=== PATIENT | female | born 1950 | race Hispanic/Latino ===

== ENCOUNTER 2016-07-22 11:09 | Inpatient (IN) | payer MEDICARE, OTHER ==
[2016-07-22 11:15] VITALS: BMI 23.6
[2016-07-22] MEDS ORDERED: Morphine 2 mg/ml ISec IVP STA (11:40)
[2016-07-22] MEDS ORDERED: Sodium Chloride 0.9% 500 ML IV STA (11:40)
--- NOTE | 2016-07-22 11:52 | ED PDOC ---
Arrival/HPI - General Chief Complaint: Dizziness/Lightheaded Time Seen by Provider: 07/22/16 11:10 Historian: Patient - History of Present Illness Narrative History of Present Illness (Text): 07/22/16 11:25 Joseline Kramer is a 66 year old female, whose past medical history includes COPD , CAD, and cardiac stents, who presents to the emergency department complaining of "feeling shakey," associated with "neck discomfort" and shortness of breath that has been present for past two weeks. Patient notes that her symptoms began when she had a cold with associated coughs, rhinorrhea, congestion, and mild fever 2 weeks ago. Patient states her PMD placed her on antibiotics, Levaquin for cough with no improvement. Subsequently was prescribed a cough medication which she feels "made my blood sugar really high". Patient states she has severe constant pain to left ankle/foot that has worsened over the past several days. Denies trauma. Denies redness or swelling or open lesions. She reports that her "left foot drags" "since I was in the hospital last". She also states "I drop things with my hands once in a while". PMD: Dr. Perfecto Arenas Time/Duration: < month (2 weeks) Symptom Onset: Gradual Symptom Course: Worsening Severity Level: Mild Activities at Onset: Rest Context: Home Past Medical History - Provider Review Nursing Documentation Reviewed: Yes - Infectious Disease Hx of Infectious Diseases: None - Tetanus Immunization Tetanus Immunization: Unknown - Cardiac Hx Cardiac Disorders: Yes (CAD,PAD, r coronary artery,ANGIOPLASTY) Hx Hypertension: Yes - Pulmonary Hx Respiratory Disorders: Yes Hx Chronic Obstructive Pulmonary Disease (COPD): Yes - Neurological Hx Neurological Disorder: Yes Hx Dizziness: Yes - HEENT Hx HEENT Disorder: No - Renal Hx Renal Disorder: No - Endocrine/Metabolic Hx Endocrine Disorders: Yes Hx Diabetes Mellitus Type 2: Yes - Hematological/Oncological Hx Blood Disorders: No - Integumentary Hx Dermatological Disorder: Yes Hx Psoriasis: Yes - Musculoskeletal/Rheumatological Hx Musculoskeletal Disorders: Yes (LUMBAR RADICULOPATHY,L ULNAR NERVE ENTRAPMENT ,DECOMPRESSION) Hx Back Pain: Yes - Gastrointestinal Hx Gastrointestinal Disorders: Yes Hx Gastroesophageal Reflux: Yes - Genitourinary/Gynecological Hx Genitourinary Disorders: Yes (1 1 MISCARRIAGE) Other/Comment: OOPHORECTOMY - Psychiatric Hx Psychophysiologic Disorder: Yes Hx Anxiety: Yes Hx Depression: Yes Hx Emotional Abuse: No Hx Physical Abuse: No Hx Substance Use: No - Surgical History Hx Cardiac Catheterization: Yes (2008) Hx Coronary Stent: Yes (X2) Other/Comment: trigger finger and ulna sx - Anesthesia Hx Anesthesia: Yes Hx Anesthesia Reactions: No Hx Malignant Hyperthermia: No - Suicidal Assessment Feels Threatened In Home Enviroment: No Family/Social History - Physician Review Nursing Documentation Reviewed: Yes Family/Social History: No Known Family HX Smoking Status: Current Some Days Smoker Hx Alcohol Use: No Hx Substance Use: No Hx Substance Use Treatment: No Allergies/Home Meds Allergies/Adverse Reactions: Allergies bacitracin Allergy (Verified 01/15/16 22:21) SWELLING latex Allergy (Verified 07/22/16 11:24) RASH Penicillins Allergy (Verified 07/22/16 11:24) ANAPHYLAXIS Home Medications: Home Meds Medication Instructions Recorded Confirmed Atorvastatin Calcium [Lipitor] 20 mg PO DAILY 04/18/12 07/22/16 QUEtiapine [Seroquel] 100 mg PO DAILY 10/31/13 07/22/16 Alprazolam [Xanax] 1 mg PO QID 10/24/14 07/22/16 Aspirin [Ecotrin] 325 mg PO DAILY 12/26/14 07/22/16 Esomeprazole Magnesium [Nexium] 40 mg PO DAILY 09/19/15 07/22/16 Metoprolol Succinate [Toprol XL] 200 mg PO DAILY 01/06/16 07/22/16 Tiotropium [Spiriva] 18 mcg IH DAILY 01/06/16 07/22/16 Albuterol Sulfate [Proair Hfa] 1 inh INH PRN PRN 07/22/16 07/22/16 Fluticasone/Salmeterol 250/50 1 inh INH BID 07/22/16 07/22/16 [Advair Diskus 250/50] Insulin Lispro [humALOG] 0 units XX PRN PRN 07/22/16 07/22/16 Methylprednisolone 0 mg PO . PRESCRIBED 07/22/16 07/22/16 [Methylprednisolone] Mometasone 0.1% [Elocon Cream] 1 appful TOP PRN PRN 07/22/16 07/22/16 Valsartan [Diovan] 25 mg PO DAILY 07/22/16 07/22/16 Varenicline Tartrate [Chantix] 0 mg PO BID 07/22/16 07/22/16 Review of Systems - Review of Systems Constitutional: Fatigue. absent: Fevers, Night Sweats Eyes: absent: Vision Changes, Eye Pain ENT: Rhinorrhea, Sinus Congestion. absent: Hearing Changes Respiratory: SOB, Cough Cardiovascular: Chest Pain, [place]. absent: Edema Gastrointestinal: Abdominal Pain (cramping) Genitourinary Female: absent: Urine Output Changes Musculoskeletal: absent: Back Pain, Neck Pain Skin: absent: Rash, Pruritis Neurological: absent: Headache, Dizziness Endocrine: absent: Diaphoresis Hemo/Lymphatic: absent: Easy Bleeding Psychiatric: Anxiety. absent: Depression Physical Exam - Physical Exam Narrative Physical Exam (Text): Head: Atraumatic. Normocephalic. Eyes: PERRL. EOMI. Conjunctivae are not pale. ENT: Mucous membranes are moist and intact. Oropharynx is clear and symmetric. No facial edema or erythema. Neck: Supple. Full ROM. No JVD. No lymphadenopathy. Cardiovascular: Tachycardia. No murmurs, rubs, or gallops. Pulmonary/Chest: Tachypneic. No evidence of respiratory distress. Clear to auscultation bilaterally. No wheezing, rales or rhonchi. Abdominal: Soft and non-distended. There is no tenderness. No rebound, guarding, or rigidity. No organomegaly. Good bowel sounds. No pulsatile masses. Back: No CVA tenderness. Extremities: Strong palpated DP pulse in Lower Left Extremity. No edema. No cyanosis. No clubbing. Full range of motion in all extremities. No calf tenderness. No knee pain. Tender to palpation dorsum of left foot and left heel/ achilles. No ulcers or erythema noted. Strong femoral pulses. Skin: Skin is warm and dry. No petechiae. No purpura. No cyanosis noted to feet. Neurological: Alert, awake, and oriented to person, place, time, and situation. Mild foot drop noted to left lower extremity, has weak dorsiflexion at ankle. No weakness noted at knee or hip or upper extremities. Psychiatric: Good eye contact. Normal interaction, affect, and behavior. 07/22/16 20:42 Vital Signs Reviewed: Yes Vital Signs Temp Pulse Resp BP Pulse Ox 07/22/16 16:30 82 16 142/81 98 07/22/16 13:13 89 16 143/71 100 07/22/16 11:16 98.2 F 108 H 20 155/74 H 100 Temperature: Afebrile Blood Pressure: Hypertensive Pulse: Tachycardic Respiratory Rate: Normal Appearance: Positive for: Uncomfortable, Other (Anxious) Pain Distress: Moderate Mental Status: Positive for: Alert and Oriented X 3 Medical Decision Making ED Course and Treatment: 07/22/16 11:25 Impression: 66 year old female complaining of "feeling shakey," shortness of breath, and cramps today and left foot pain for four days. Differential Diagnosis included but are not limited to: DVT vs. Peripheral Vascular Disease vs. Anxiety vs. COPD vs. Pneumonia Plan: -- EKG -- Chest X-ray -- Bilateral Lower Extremity US -- Carotid and Vertebral US -- VBG, Blood Culture -- Urine Culture -- Labs -- K-Dur, Morphine, and Xanax -- Reassess and disposition Prior Visits: Notes and results from previous visits were reviewed. Patient last seen in the ED on 05/12/16 for intermittent chest pressure and shortness of breath for one week. Progress Notes: 07/22/16 20:45 Patient is a 66 yo female who has prior cardiac history, recent stents, CONTINUE TO SMOKE, risks of this discussed. She has had persistent cough, sob. On exam, no respiratory distress noted although leukocytosis and elevated lactate noted. On re-exam, not tachycardic or tachypneic, with no clear source of infection. Not hypotensive. Exam not consistent with sepsis. IV fluids given and repeat lactate ordered. She has significant pain to left foot with no known trauma. THERE IS A STRONG AND PALPABLE PULSE in the left lower extremity, this exam is thus NOT consistent with a severe acute arterial occlusion. Cannot exclude a component of neuropathy or PVD, although ultrasound is NEGATIVE FOR DVT as per water pollution control technician. Patient is noted to have some improvement, but persistent pain after iv morphine. Cannot exclude medication effect or tendinitis as source of pain as well. Neck discomfort she reports is "like when I had my heart attack", although current EKG is unchanged from previous and initial troponin unremarkable. She denies chest discomfort currently. Case discussed with PMD, requests admission to hospitalist, case d/w Dr. Kim. Foot drop by history appears to have been present for several weeks. On exam, there is no midline back pain or other neuro deficits noted. Deficits appears isolated to left foot/ankle. CT head unremarkable. Will continue serial neurologic exams. - Lab Interpretations Lab Results: 07/22/16 12:10 07/22/16 12:10 Lab Results 07/22/16 12:10: WBC 17.0 H D, RBC 4.35, Hgb 13.4, Hct 37.5, MCV 86.2, MCH 30.8, MCHC 35.7, RDW 13.9, Plt Count 460 H, MPV 9.4, Gran % 64.1, Lymph % (Auto) 23.8 , [place] % (Auto) 10.7 H, Eos % (Auto) 1.2 L, Baso % (Auto) 0.2, Gran # 10.91 H, Lymph # 4.1 H, [place] # 1.8 H, Eos # 0.2, Baso # 0.03, PT 10.4, INR 0.96, APTT 23.4 L, pO2 28 L, VBG pH 7.45 H, VBG pCO2 37.0 L, VBG HCO3 25.7, VBG Total CO2 26.8, VBG O2 Sat (Calc) 61.2, VBG Base Excess 1.8, VBG Potassium 3.9, Glucose 152 H, Lactate 3.7 H, FiO2 21.0, Sodium 131.0 L, Potassium 3.2 L, Chloride 96.0 L, Carbon Dioxide 26, Anion Gap 12, BUN 17, Creatinine 0.6, Est GFR ( Amer) > 60, Est GFR (Non-Af Amer) > 60, Random Glucose 142 H, Calcium 9.2, Total Bilirubin 0.8, AST 30, ALT 28, Alkaline Phosphatase 114, Lactate Dehydrogenase 503, Total Creatine Kinase 50, Troponin I < 0.01 D, Total Protein 6.5, Albumin 3.5, Globulin 3.0, Albumin/Globulin Ratio 1.2, Venous Blood Potassium 3.9, Urine Color Yellow, Urine Appearance Clear, Urine pH 7.5, Ur Specific [place] 1.010, Urine Protein Negative, Urine Glucose (UA) Negative, Urine Ketones Negative, Urine Blood Negative, Urine Nitrate Negative, Urine Bilirubin Negative, Urine Urobilinogen 0.2, Ur Leukocyte Esterase Negative - RAD Interpretation Radiology Orders: 07/22/16 11:39 CHEST ONE VIEW [RAD] Stat DUPLEX LOWER EXTRM VEIN BILAT [US] Stat 07/22/16 13:32 HEAD W/O CONTRAST [CT] Stat Evaluation Engineer: ED Physician - EKG Interpretation EKG Interpretation (Text): EKG 13:06 normal sinus rhythm rate of 86 with left bundle branch block Interpreted by ED Physician: Yes Type: 12 lead EKG Comparison: Com.w/previous EKG - Medication Orders Current Medication Orders: Albuterol Sulfate (Albuterol 0.5% Inhal [place] (2.5 Mg/0.5 Ml) Ud) 2.5 mg IH [id number] PRN PRN Reason: Shortness of Breath Last Admin: 07/22/16 19:53 Dose: 2.5 MG Alprazolam (Xanax) 1 mg PO QID [facility] PRN Reason: Protocol Stop: 07/29/16 18:01 Last Admin: 07/22/16 18:22 Dose: 1 MG Behavioural Document 07/22/16 18:22 MANIL (Rec: 07/22/16 18:22 MANIL [id number]) Maintenance Maintenance Dose Yes Nonmedicinal Nonmedicinal Interventions Redirect Behavior Behavior for Medication: Anxiety Re-Assess: Reassess Psych Meds Document 07/22/16 19:22 RR (Rec: 07/22/16 20:07 RR [id number]) Reassess Psych Med Effective Arformoterol Tartrate (Brovana) 15 mcg IH [id number] [facility] Last Admin: 07/22/16 19:53 Dose: 15 MCG Aspirin (Ecotrin) 325 mg PO DAILY [facility] Atorvastatin Calcium (Lipitor) 20 mg PO DAILY [facility] Budesonide (Pulmicort Respules) 0.5 mg IH [id number] [facility] Last Admin: 07/22/16 19:58 Dose: 0.5 MG Clopidogrel Bisulfate (Plavix) 75 mg PO DAILY [facility] Enoxaparin Sodium (Lovenox) 40 mg SC DAILY [facility] PRN Reason: Protocol Guaifenesin (Robitussin) 100 mg PO Q4H PRN PRN Reason: Cough Insulin Detemir (Levemir) 20 unit SC HS [facility] Insulin Human Regular (Humulin R Med) 0 units SC ACHS [facility] PRN Reason: Protocol Losartan Potassium (Cozaar) 25 mg PO DAILY [facility] Nicotine (Nicoderm Cq) 1 patch TD DAILY [facility] Last Admin: 07/22/16 18:22 Dose: 1 PATCH MAR Patch Placement/Removal Document 07/22/16 18:22 MANIL (Rec: 07/22/16 18:22 MANIL [id number]) Patch Removal Removal of previous patch done No Patch Placement Left, Right or Bilateral Right Upper or Lower Lower Pain Location Body Site Arm Pantoprazole Sodium (Protonix Inj) 40 mg IVP DAILY [facility] Quetiapine Fumarate (Seroquel) 100 mg PO DAILY [facility] PRN Reason: Protocol Discontinued Medications Albuterol Sulfate (Albuterol 0.5% Inhal [place] (2.5 Mg/0.5 Ml) Ud) 2.5 mg IH [id number] PRN PRN Reason: Shortness of Breath Alprazolam (Xanax) 1 mg PO STAT STA Stop: 07/22/16 13:37 Last Admin: 07/22/16 13:45 Dose: 1 MG Behavioural Document 07/22/16 13:45 HI (Rec: 07/22/16 13:45 HI [id number]) Maintenance Maintenance Dose No Nonmedicinal Nonmedicinal Interventions Redirect Behavior Behavior for Medication: Anxiety Sodium Chloride (Sodium Chloride 0.9%) 500 mls @ 1,000 mls/hr IV .Q30M STA Stop: 07/22/16 12:09 Last Admin: 07/22/16 12:12 Dose: 1,000 MLS/HR eMAR Start Stop Document 07/22/16 12:12 HI (Rec: 07/22/16 12:12 HI [facility] [id number]) Intravenous Solution Start Date 07/22/16 Start Time 12:12 Insulin Human Lispro (Humalog Low) 7 units SC STAT [facility] PRN Reason: Protocol Stop: 07/22/16 19:46 Last Admin: 07/22/16 20:21 Dose: 7 UNITS Subcutaneous Administrations Document 07/22/16 20:21 RR (Rec: 07/22/16 20:21 RR [id number]) Injection Site MAR Injection Site Left Deltoid Charges for Administration # of Subcutaneous Administrations 1 Morphine Sulfate (Morphine) 2 mg IVP STAT STA Stop: 07/22/16 11:41 Last Admin: 07/22/16 12:11 Dose: 2 MG MAR Pain Assessment Document 07/22/16 12:11 [place] (Rec: 07/22/16 12:11 HI [facility] [id number]) Pain Reassessment Is this a pain reassessment? No Sleep Is patient sleeping during reassessment? No Presence of Pain Presence of Pain Yes Pain Scale Used Pain Scale Used Numeric Location Pain Location Body Site Foot IVP Administration Document 07/22/16 12:11 [place] (Rec: 07/22/16 12:11 [id number]) Charges for Administration # of IVP Administrations 1 Pneumococcal Polyvalent Vaccine (Pneumovax 23 Vaccine) 0.5 ml IM .ONCE ONE Stop: 07/22/16 18:42 Potassium Chloride (K-Dur 20 Meq Er Tab) 40 meq PO STAT STA Stop: 07/22/16 13:03 Last Admin: 07/22/16 13:25 Dose: 40 MEQ - Scribe Statement The provider has reviewed the documentation as recorded by the Kristin Gimenez Provider Scribe Attestation: All medical record entries made by the Scribe were at my direction and personally dictated by me. I have reviewed the chart and agree that the record accurately reflects my personal performance of the history, physical exam, medical decision making, and the department course for this patient. I have also personally directed, reviewed, and agree with the discharge instructions and disposition. Disposition/Present on Arrival - Present on Arrival Any Indicators Present on Arrival: Yes History of DVT/PE: No History of Uncontrolled Diabetes: Yes Urinary Catheter: No History of Decub. Ulcer: No History Surgical Site Infection Following: None - Disposition Have Diagnosis and Disposition been Completed?: Yes Diagnosis: Chest pain, Leg pain, Leukocytosis, Elevated lactic acid level, COPD (chronic obstructive pulmonary disease), Hypokalemia, Acute hyponatremia, Foot drop Disposition: HOSPITALIZED Disposition Time: 13:20 Patient Plan: Admission, Telemetry Patient Problems: Current Active Problems Problem Status Diagnosed Acute hyponatremia Acute Anxiety Acute COPD (chronic obstructive pulmonary disease) Acute Chest pain Acute Coronary atherosclerosis of [place] coronary artery Acute Dehydration Acute Elevated lactic acid level Acute Foot drop Acute Headache Acute Hyperglycemia Acute Hypertension Acute Hypokalemia Acute Leg pain Acute Leukocytosis Acute Mixed hyperlipidemia Acute Numbness Acute Postsurgical percutaneous transluminal coronary angioplasty status Acute Shortness of breath Acute Tobacco use disorder Acute Condition: FAIR
[2016-07-22 12:19] LABS: ADD MANUAL DIFF? NO
[2016-07-22 12:23] LABS: BASO # 0.03 K/mm3 (0.0-2.0); BASO % 0.2 % (0.0-3.0); EOS # 0.2 (0.0-0.7); EOS % 1.2 % (1.5-5.0); GRAN # 10.91 (1.4-6.5); GRAN % 64.1 % (50.0-68.0); HEMATOCRIT 37.5 % (36.0-48.0); LYMPH # 4.1 (1.2-3.4); LYMPH % 23.8 % (22.0-35.0); MEAN CELL VOLUME 86.2 fL (80.0-105.0); MEAN CORPUSCULAR HEMOGLOBIN 30.8 pg (25.0-35.0); MEAN CORPUSCULAR HGB CONC 35.7 g/dl (31.0-37.0); MEAN PLATELET VOLUME 9.4 fl (7.0-11.0); MONO # 1.8 (0.1-0.6); MONO % 10.7 % (1.0-6.0); PH,URINE 7.5 (4.7-8.0); PLATELET COUNT 460 10^3/uL (120.0-450.0); RED CELL DISTRIBUTION WIDTH 13.9 % (11.5-14.5); URINE BILIRUBIN NEGATIVE (NEGATIVE); URINE BLOOD NEGATIVE (NEGATIVE); URINE GLUCOSE (UA) NEGATIVE (NEGATIVE); URINE KETONE NEGATIVE (NEGATIVE); URINE LEUKOCYTE ESTERASE NEGATIVE Leu/uL (NEGATIVE); URINE PROTEIN NEGATIVE mg/dL (<30 mg/dL); URINE UROBILINOGEN 0.2 E.U./dL (<1 E.U./dL); VENOUS BLOOD GAS BASE EXCESS 1.8 mmol/L (0.0-2.0); VENOUS BLOOD PH 7.45 (7.32-7.43)
[2016-07-22 12:24] LABS: URINE APPEARANCE CLEAR (CLEAR); URINE COLOR YELLOW (YELLOW)
[2016-07-22 12:34] LABS: ALB/GLOB RATIO 1.2 (1.1-1.8); ALKALINE PHOSPHATASE 114 U/L (38-133); ALT/SGPT 28 U/L (7-56); AST/SGOT 30 U/L (15-39); BILIRUBIN,TOTAL 0.8 mg/dL (0.2-1.3); BLOOD UREA NITROGEN 17 mg/dL (7-21); CALCIUM 9.2 mg/dL (8.4-10.5); CARBON DIOXIDE 26 mmol/L (21-33); CHLORIDE 95 mmol/L (98-107); GFR AFRICAN-AMERICAN > 60; GLUCOSE,RANDOM 142 mg/dL (70-110); POTASSIUM 3.2 mmol/L (3.6-5.0); SODIUM 130 mmol/L (132-148); TOTAL PROTEIN 6.5 g/dL (5.8-8.3)
[2016-07-22 12:46] LABS: TROPONIN I < 0.01 ng/mL
[2016-07-22 12:48] LABS: INR 0.96 (0.93-1.08); PARTIAL THROMBOPLASTIN TIME 23.4 Seconds (23.7-30.8)
[2016-07-22] MEDS ORDERED: Potassium Chloride 20 mEq ER Tab PO STA (13:02)
--- NOTE | 2016-07-22 14:11 | CT ---
PROCEDURE: CT HEAD WITHOUT CONTRAST. HISTORY: left foot drop, hx of extremity weakness COMPARISON: None available. TECHNIQUE: Axial computed tomography images were obtained through the head/brain without intravenous contrast. Radiation dose: Total exam DLP = 801 mGy-cm. This CT exam was performed using one or more of the following dose reduction techniques: Automated exposure control, adjustment of the mA and/or kV according to patient size, and/or use of iterative reconstruction technique. FINDINGS: HEMORRHAGE: No intracranial hemorrhage. BRAIN: No mass effect or edema. No atrophy or chronic microvascular ischemic changes. VENTRICLES: Unremarkable. No hydrocephalus. CALVARIUM: Unremarkable. PARANASAL SINUSES: Unremarkable as visualized. No significant inflammatory changes. MASTOID AIR CELLS: Unremarkable as visualized. No inflammatory changes. OTHER FINDINGS: None. IMPRESSION: Normal CT of the Head.
[2016-07-22] MEDS ORDERED: Albuterol 0.5% Inhal Sol (2.5 mg/0.5 ml) UD IH PRN (15:25)
--- NOTE | 2016-07-22 15:31 | CP.PCM.HP ---
<GisselleJaydon - Last Filed: 07/22/16 15:45> History of Present Illness - History of Present Illness History of Present Illness: cc: left foot numbness HPI: Patient is a 66yo female with past medical history of DM type 2, CAD s/p stent placement, COPD, anxiety, tobacco use, HTN and HLD that presents c/o left foot numbness for the past 4 days. Patient states that 4 days prior, she began experiencing some left foot numbness associated with parasthesias and pain. She reported that the numbness was constant with no apparent mitigating or worsening factors. Patient stated that the numbness localized only to her foot and did not effect her thigh or leg and she became concerned when her pain began to worsen and she was unable to walk properly. She reported decreased sensation in the left foot and some lightheadedness today. She denied chest pain , palpitations, SOB, headache, fever, chills, abdominal pain, nausea, vomiting. 12point ROS as per HPI above, otherwise negative PMHx: DM type 2, CAD s/p stent placement, COPD, anxiety, tobacco use, HTN, HLD PSHx: trigger finger release right hand, left ulnar nerve decompression, b/l oophorectomy Family Hx: Mother: Lung Ca, Father: Unknown to her, Sister: Uterine Ca Social Hx: Current tobacco use (1/2ppd for over 50yrs), denies illicit drugs and alcohol use Present on Admission - Present on Admission Any Indicators Present on Admission: No Past Patient History - Infectious Disease Hx of Infectious Diseases: None - Tetanus Immunizations Tetanus Immunization: Unknown - Past Social History Smoking Status: Current Some Days Smoker - CARDIAC Hx Cardiac Disorders: Yes (CAD,PAD, r coronary artery,ANGIOPLASTY) Hx Hypertension: Yes - PULMONARY Hx Respiratory Disorders: Yes Hx Chronic Obstructive Pulmonary Disease (COPD): Yes - NEUROLOGICAL Hx Neurological Disorder: Yes Hx Dizziness: Yes - HEENT Hx HEENT Problems: No - RENAL Hx Chronic Kidney Disease: No - ENDOCRINE/METABOLIC Hx Endocrine Disorders: Yes Hx Diabetes Mellitus Type 2: Yes - HEMATOLOGICAL/ONCOLOGICAL Hx Blood Disorders: No - INTEGUMENTARY Hx Dermatological Problems: Yes Hx Psoriasis: Yes - MUSCULOSKELETAL/RHEUMATOLOGICAL Hx Musculoskeletal Disorders: Yes (LUMBAR RADICULOPATHY,L ULNAR NERVE ENTRAPMENT ,DECOMPRESSION) Hx Back Pain: Yes - GASTROINTESTINAL Hx Gastrointestinal Disorders: Yes Hx Gastroesophageal Reflux: Yes - GENITOURINARY/GYNECOLOGICAL Hx Genitourinary Disorders: Yes (1 1 MISCARRIAGE) Other/Comment: OOPHORECTOMY - PSYCHIATRIC Hx Psychophysiologic Disorder: Yes Hx Anxiety: Yes Hx Depression: Yes Hx Emotional Abuse: No Hx Physical Abuse: No Hx Substance Use: No - SURGICAL HISTORY Hx Cardiac Catheterization: Yes (2007) Hx Coronary Stent: Yes (X2) Other/Comment: trigger finger and ulna sx - ANESTHESIA Hx Anesthesia: Yes Hx Anesthesia Reactions: No Hx Malignant Hyperthermia: No Meds Allergies/Adverse Reactions: Allergies Allergy/AdvReac Type Severity Reaction Status Date / Time bacitracin Allergy SWELLING Verified 01/15/16 22:21 latex Allergy RASH Verified 07/22/16 11:24 Penicillins Allergy ANAPHYLAXIS Verified 07/22/16 11:24 Physical Exam - Constitutional Appears: Well, Non-toxic, No Acute Distress - Head Exam Head Exam: ATRAUMATIC, NORMAL INSPECTION, NORMOCEPHALIC - Eye Exam Eye Exam: EOMI, PERRL. absent: Scleral icterus - ENT Exam ENT Exam: Mucous Membranes Moist - Neck Exam Neck exam: Positive for: Normal Inspection. Negative for: Lymphadenopathy, Tenderness, Thyromegaly - Respiratory Exam Respiratory Exam: Clear to Auscultation Bilateral. absent: Rales, Rhonchi, Wheezes - Cardiovascular Exam Cardiovascular Exam: RRR, +S1, +S2. absent: Clicks, JVD, Rubs - GI/Abdominal Exam GI & Abdominal Exam: Normal Bowel Sounds, Soft. absent: Distended, Firm, Guarding, Rebound, Tenderness - Extremities Exam Extremities exam: Positive for: normal inspection, tenderness, pedal pulses present. Negative for: pedal edema Additional comments: left foot tenderness and decreased sensation 5/5 muscle strength in bilateral upper and lower extremities 2/4 dorsalis pedis and posterior tibialis pulses in bilateral lower extremities right foot sensation intact - Neurological Exam Neurological exam: Alert, CN II-XII Intact, Oriented x3 Additional comments: alert, awake, oriented x3 cranial nerve 2-12 intact no facial droop or facial asymmetry no slurred speech - Psychiatric Exam Psychiatric exam: Normal Affect, Normal Mood - Skin Skin Exam: Dry, Intact, Normal Color, Warm Results - Vital Signs Recent Vital Signs: Last Vital Signs Temp 98.2 F 07/22/16 11:16 Pulse 89 07/22/16 13:13 Resp 16 07/22/16 13:13 BP 143/71 07/22/16 13:13 Pulse Ox 100 07/22/16 13:13 - Labs Result Diagrams: 07/22/16 12:10 07/22/16 12:10 Labs: Laboratory Results - last 24 hr 07/22/16 12:10 WBC 17.0 H D RBC 4.35 Hgb 13.4 Hct 37.5 MCV 86.2 MCH 30.8 MCHC 35.7 RDW 13.9 Plt Count 460 H MPV 9.4 Gran % 64.1 Lymph % (Auto) 23.8 [place] % (Auto) 10.7 H Eos % (Auto) 1.2 L Baso % (Auto) 0.2 Gran # 10.91 H Lymph # 4.1 H [place] # 1.8 H Eos # 0.2 Baso # 0.03 PT 10.4 INR 0.96 APTT 23.4 L pO2 28 L VBG pH 7.45 H VBG pCO2 37.0 L VBG HCO3 25.7 VBG Total CO2 26.8 VBG O2 Sat (Calc) 61.2 VBG Base Excess 1.8 VBG Potassium 3.9 Sodium 130 L Chloride 95 L Glucose 152 H Lactate 3.7 H FiO2 21.0 Potassium 3.2 L Carbon Dioxide 26 Anion Gap 12 BUN 17 Creatinine 0.6 Est GFR ( Amer) > 60 Est GFR (Non-Af Amer) > 60 Random Glucose 142 H Calcium 9.2 Total Bilirubin 0.8 AST 30 ALT 28 Alkaline Phosphatase 114 Lactate Dehydrogenase 503 Total Creatine Kinase 50 Troponin I < 0.01 D Total Protein 6.5 Albumin 3.5 Globulin 3.0 Albumin/Globulin Ratio 1.2 Venous Blood Potassium 3.9 Urine Color Yellow Urine Appearance Clear Urine pH 7.5 Ur Specific [place] 1.010 Urine Protein Negative Urine Glucose (UA) Negative Urine Ketones Negative Urine Blood Negative Urine Nitrate Negative Urine Bilirubin Negative Urine Urobilinogen 0.2 Ur Leukocyte Esterase Negative Assessment & Plan - Assessment and Plan (Free Text) Assessment: 66yo female with history of CAD, COPD, HTN, HLD, tobacco use, anxiety presents c /o left foot numbness for past 4 days associated with parasthesias, decreased sensation and lightheadedness Plan: 1. Left foot numbness -Head CT reviewed; no acute intracranial pathology -EKG reviewed; normal sinus rhythm with left bundle branch block, no acute ST- Twave changes; unchanged from prior EKG -LE doppler pending -Neurochecks q4h -Vit B6, B12 pending -Carotid doppler pending -Continue ASA, plavix, lipitor, lisinopril -Neurology consulted - Dr. Turner 2. COPD -Continue home meds -CXR reviewed; no apparent active disease 3. Hypertension -Continue home meds 4. Hyperlipidemia -Continue home meds 5. DM type 2 -Levemir 20u HS -Humalog low dose sliding scale -consistent carb diet -Fingersticks ACHS 6. CAD -Continue ASA, plavix, lipitor, lisinopril 7. DVT/GI Prophylaxis -Lovenox/Protonix Patient seen and case discussed with attending, Dr. Kim - Date & Time Date: 07/22/16 Time: 15:37 <Dori Kim MD - Last Filed: 07/22/16 16:59> Results - Vital Signs Recent Vital Signs: Last Vital Signs Temp 98.2 F 07/22/16 11:16 Pulse 82 07/22/16 16:30 Resp 16 07/22/16 16:30 BP 142/81 07/22/16 16:30 Pulse Ox 98 07/22/16 16:30 - Labs Result Diagrams: 07/22/16 12:10 07/22/16 12:10 Attending/Attestation - Attestation I have personally seen and examined this patient.: Yes I have fully participated in the care of the patient.: Yes I have reviewed all pertinent clinical information: Yes Notes (Text): Patient was seen and examined with medical data analyst .Agreed with resident assessment and plan. 66 yrs female with past medical history of IRDM, CAD s/p RCA stent placement 05/19, COPD, anxiety, tobacco use, HTN and HLD is admitted with left foot numbness and weakness, has sensory deficit in left foot and left lower leg, CT head is negative.The etiology of patient symptoms unclear, could be CVA/ L4-5 rediculopathy, will monitor Neuro check, will check vitamin B 6 and B 12 level, we will also get carotid Doppler and will Neurology consult. Leukocytosis is likely due to recent use of steroid, Chest X ray is negative for Pneumonia, UA is negative.Patient does not look to be septic, we will monitor WBC count. Lactic acid on Venous blood gas is high, etiology unclear, we will repeat lactic acid level, if still high, will treat for possible sepsis, we will also check lactic acid level. Management plan was discussed in detail with patient Education was provided.
[2016-07-22] MEDS ORDERED: Insulin Lispro (humaLOG) LOW Coverage SC SCH (16:30)
[2016-07-22 16:54] LABS: VENOUS BLOOD GAS BASE EXCESS -0.1 mmol/L (0.0-2.0); VENOUS BLOOD PH 7.43 (7.32-7.43)
[2016-07-22] MEDS ORDERED: Fluticasone-Salmeterol 250-50mcg Diskus INH SCH (18:00)
[2016-07-22] MEDS ORDERED: Pneumococcal 23-Valent Vaccine IM ONE (18:41)
[2016-07-22] MEDS ORDERED: Insulin Lispro (humaLOG) LOW Coverage SC STA (19:45)
[2016-07-22] MEDS: Arformoterol 15 mcg/2 ml Inh Sol IH SCH (19:53)
[2016-07-22] MEDS: Albuterol 0.5% Inhal Sol (2.5 mg/0.5 ml) UD IH PRN (19:53)
--- NOTE | 2016-07-22 19:55 | CARD ---
APPROVED REPORT EKG Measurement Heart [id number] <Conclusion> Normal sinus rhythm Left bundle branch block Abnormal ECG
[2016-07-22] MEDS: Budesonide 0.5 mg/2 ml Inhal Susp UD IH SCH (19:58)
[2016-07-22] MEDS: Insulin Reg-MEDIUM-Coverage SC SCH (22:33)
[2016-07-22] MEDS: Insulin Detemir 100 units/ml Vial (Levemir) SC SCH (22:33)
[2016-07-23 07:25] LABS: ADD MANUAL DIFF? NO
[2016-07-23 07:32] LABS: BASO # 0.04 K/mm3 (0.0-2.0); BASO % 0.5 % (0.0-3.0); EOS # 0.4 (0.0-0.7); GRAN # 3.89 (1.4-6.5); HEMATOCRIT 36.6 % (36.0-48.0); LYMPH # 3.2 (1.2-3.4); LYMPH % 38.3 % (22.0-35.0); MEAN CELL VOLUME 87.8 fL (80.0-105.0); MEAN CORPUSCULAR HEMOGLOBIN 30.2 pg (25.0-35.0); MEAN CORPUSCULAR HGB CONC 34.4 g/dl (31.0-37.0); MEAN PLATELET VOLUME 9.1 fl (7.0-11.0); MONO # 0.8 (0.1-0.6); MONO % 9.2 % (1.0-6.0); PLATELET COUNT 399 10^3/uL (120.0-450.0); RED CELL DISTRIBUTION WIDTH 14.4 % (11.5-14.5); WHITE BLOOD COUNT 8.3 10^3/ul (4.5-11.0)
[2016-07-23 07:42] LABS: ALKALINE PHOSPHATASE 82 U/L (38-133); ALT/SGPT 34 U/L (7-56); AST/SGOT 18 U/L (15-39); BILIRUBIN,TOTAL 0.5 mg/dL (0.2-1.3); BLOOD UREA NITROGEN 11 mg/dL (7-21); CALCIUM 8.5 mg/dL (8.4-10.5); CARBON DIOXIDE 29 mmol/L (21-33); CHLORIDE 102 mmol/L (95-110); GFR AFRICAN-AMERICAN > 60; GLUCOSE,RANDOM 119 mg/dL (70-110); SODIUM 136 mmol/L (132-148); TOTAL PROTEIN 5.6 g/dL (5.8-8.3)
--- NOTE | 2016-07-23 08:06 | RAD ---
PROCEDURE: CHEST RADIOGRAPH, 1 VIEW HISTORY: hx of cough and sob COMPARISON: None available. FINDINGS: LUNGS: Clear. PLEURA: No pneumothorax or pleural fluid seen. CARDIOVASCULAR: Normal. OSSEOUS STRUCTURES: No significant abnormalities. VISUALIZED UPPER ABDOMEN: Normal. OTHER FINDINGS: None. IMPRESSION: No active disease.
[2016-07-23] MEDS: guaiFENesin 100 mg/5 ml Syrup UD PO PRN ×2 (08:23→19:23)
[2016-07-23] MEDS: Budesonide 0.5 mg/2 ml Inhal Susp UD IH SCH ×2 (08:28→19:37)
[2016-07-23] MEDS: Arformoterol 15 mcg/2 ml Inh Sol IH SCH ×2 (08:28→19:37)
[2016-07-23] MEDS: Insulin Reg-MEDIUM-Coverage SC SCH ×4 (08:29→22:08)
[2016-07-23] MEDS: Enoxaparin 30 mg Syringe SC SCH (10:21)
[2016-07-23] MEDS: Aspirin 325 mg EC Tablets PO SCH (10:24)
--- NOTE | 2016-07-23 11:37 | US ---
HISTORY: Leg pain and swelling. Evaluate for DVT PHYSICIAN(S): Eros Holbrook MD. TECHNIQUE: Duplex sonography and color-flow Doppler with graded compression were used to evaluate the deep venous systems of both lower extremities. FINDINGS: The visualized deep venous systems of both lower extremities are sonographically normal and compressible. Normal wave forms and augmentation are seen. There is no sonographic evidence for deep venous thrombosis in the visualized segments of both lower extremities. IMPRESSION: No sonographic evidence for deep venous thrombosis in the visualized segments of both lower extremities.
--- NOTE | 2016-07-23 15:13 | CP.PCM.PN ---
<Ludwin Cooper - Last Filed: 07/23/16 14:56> Subjective - Date & Time of Evaluation Date of Evaluation: 07/23/16 Time of Evaluation: 09:30 - Subjective Subjective: Dr. Cooper PGY 1 Hospitalist Note Patient seen and evaluated at bedside with family present and attending. She reports continued foot pain and numbness along the 1st and 2nd toes. She is worried about losing her foot due to diabetes. she denies any pain or numbness anywhere else. She denies any fever,chills, chest pain, SOB or palpitations. No adverse events reported over night. Objective - Vital Signs/Intake and Output Vital Signs (last 24 hours): Temp Pulse Resp BP Pulse Ox 98.2 F 97 H 20 109/66 98 07/22/16 18:26 07/23/16 10:20 07/23/16 08:32 07/23/16 10:20 07/23/16 08:32 Intake and Output: 07/23/16 07/23/16 06:59 18:59 Intake Total 550 720 Output Total 500 Balance 50 720 - Medications Medications: Current Medications Acetaminophen (Tylenol 325mg Tab) 650 mg PO Q6H PRN PRN Reason: Pain, moderate (4-7) Albuterol Sulfate (Albuterol 0.5% Inhal [place] (2.5 Mg/0.5 Ml) Ud) 2.5 mg IH [id number] PRN PRN Reason: Shortness of Breath Last Admin: 07/22/16 19:53 Dose: 2.5 mg Alprazolam (Xanax) 1 mg PO QID [facility] PRN Reason: Protocol Stop: 07/29/16 18:01 Last Admin: 07/23/16 13:39 Dose: 1 mg Arformoterol Tartrate (Brovana) 15 mcg IH [id number] [facility] Last Admin: 07/23/16 08:28 Dose: 15 mcg Aspirin (Ecotrin) 325 mg PO DAILY [facility] Last Admin: 07/23/16 10:24 Dose: 325 mg Atorvastatin Calcium (Lipitor) 20 mg PO DAILY [facility] Last Admin: 07/23/16 10:20 Dose: 20 mg Budesonide (Pulmicort Respules) 0.5 mg IH [id number] [facility] Last Admin: 07/23/16 08:28 Dose: 0.5 mg Clopidogrel Bisulfate (Plavix) 75 mg PO DAILY [facility] Last Admin: 07/23/16 10:20 Dose: 75 mg Enoxaparin Sodium (Lovenox) 40 mg SC DAILY [facility] PRN Reason: Protocol Last Admin: 07/23/16 10:21 Dose: 40 mg Gabapentin (Neurontin) 100 mg PO TID [facility] PRN Reason: Protocol Last Admin: 07/23/16 14:45 Dose: 100 mg Guaifenesin (Robitussin) 100 mg PO Q4H PRN PRN Reason: Cough Last Admin: 07/23/16 08:23 Dose: 100 mg Insulin Detemir (Levemir) 20 unit SC HS [facility] Last Admin: 07/22/16 22:33 Dose: 20 unit Insulin Human Regular (Humulin R Med) 0 units SC ACHS [facility] PRN Reason: Protocol Last Admin: 07/23/16 11:26 Dose: 5 units Losartan Potassium (Cozaar) 25 mg PO DAILY [facility] Last Admin: 07/23/16 10:20 Dose: 25 mg Nicotine (Nicoderm Cq) 1 patch TD DAILY [facility] Last Admin: 07/23/16 10:22 Dose: 1 patch Pantoprazole Sodium (Protonix Inj) 40 mg IVP DAILY [facility] Last Admin: 07/23/16 10:22 Dose: 40 mg Quetiapine Fumarate (Seroquel) 100 mg PO HS [facility] PRN Reason: Protocol - Labs Labs: 07/23/16 07:23 07/23/16 07:23 PT 10.4 Seconds (9.9-11.8) 07/22/16 12:10 INR 0.96 (0.93-1.08) 07/22/16 12:10 APTT 23.4 Seconds (23.7-30.8) L 07/22/16 12:10 - Constitutional Appears: Non-toxic, No Acute Distress - Head Exam Head Exam: ATRAUMATIC, NORMOCEPHALIC - Eye Exam Eye Exam: EOMI, Normal appearance, PERRL Pupil Exam: NORMAL ACCOMODATION, PERRL - ENT Exam ENT Exam: Mucous Membranes Moist. absent: Normal Oropharynx (poor dentition) - Respiratory Exam Respiratory Exam: Clear to Ausculation Bilateral, NORMAL BREATHING PATTERN. absent: Rales, Rhonchi, Wheezes - Cardiovascular Exam Cardiovascular Exam: REGULAR RHYTHM, +S1, +S2 - GI/Abdominal Exam GI & Abdominal Exam: Soft, Normal Bowel Sounds. absent: Tenderness - Extremities Exam Extremities Exam: absent: Normal Inspection (numbness along toes), Pedal Edema, Tenderness - Neurological Exam Neurological Exam: Alert, Awake, CN II-XII Intact, Oriented x3 - Psychiatric Exam Psychiatric exam: Agitated - Skin Skin Exam: Dry, Intact, Normal Color, Warm Assessment and Plan - Assessment and Plan (Free Text) Assessment: 66yo female with history of CAD, COPD, HTN, HLD, tobacco use, anxiety presents c /o left foot numbness for past 4 days associated with parasthesias, decreased sensation and lightheadedness. Plan: Left foot numbness * Neurology consulted, help appreciated * Head CT reviewed; no acute intracranial pathology [see full report] * EKG reviewed; normal sinus rhythm with left bundle branch block, no acute ST- Twave changes; unchanged from prior EKG * LE doppler shoed no evidence of DVT * Neurochecks q4h * Vit B12 snl * Vit B6 pending * Carotid doppler pending * Continue ASA, plavix, lipitor, lisinopril * Started on gabapentin for neuropathy COPD * Continue home meds * CXR reviewed; no apparent active disease Hypertension * Continue home meds Hyperlipidemia * Continue home meds DM type 2 * Levemir 20u HS * Humalog low dose sliding scale * consistent carb diet * Fingersticks ACHS CAD * Continue ASA, plavix, lipitor, lisinopril DVT/GI Prophylaxis * Lovenox/Protonix Patient seen and case discussed with attending <Julio PALOMINO,Dori - Last Filed: 07/23/16 15:43> Objective - Vital Signs/Intake and Output Vital Signs (last 24 hours): Temp Pulse Resp BP Pulse Ox 98.2 F 97 H 20 109/66 98 07/22/16 18:26 07/23/16 10:20 07/23/16 08:32 07/23/16 10:20 07/23/16 08:32 Intake and Output: 07/23/16 07/23/16 06:59 18:59 Intake Total 550 720 Output Total 500 Balance 50 720 - Medications Medications: Current Medications Acetaminophen (Tylenol 325mg Tab) 650 mg PO Q6H PRN PRN Reason: Pain, moderate (4-7) Last Admin: 07/23/16 15:05 Dose: 650 mg Albuterol Sulfate (Albuterol 0.5% Inhal [place] (2.5 Mg/0.5 Ml) Ud) 2.5 mg IH [id number] PRN PRN Reason: Shortness of Breath Last Admin: 07/22/16 19:53 Dose: 2.5 mg Alprazolam (Xanax) 1 mg PO QID [facility] PRN Reason: Protocol Stop: 07/29/16 18:01 Last Admin: 07/23/16 13:39 Dose: 1 mg Arformoterol Tartrate (Brovana) 15 mcg IH [id number] [facility] Last Admin: 07/23/16 08:28 Dose: 15 mcg Aspirin (Ecotrin) 325 mg PO DAILY [facility] Last Admin: 07/23/16 10:24 Dose: 325 mg Atorvastatin Calcium (Lipitor) 20 mg PO DAILY [facility] Last Admin: 07/23/16 10:20 Dose: 20 mg Budesonide (Pulmicort Respules) 0.5 mg IH [id number] [facility] Last Admin: 07/23/16 08:28 Dose: 0.5 mg Clopidogrel Bisulfate (Plavix) 75 mg PO DAILY [facility] Last Admin: 07/23/16 10:20 Dose: 75 mg Enoxaparin Sodium (Lovenox) 40 mg SC DAILY [facility] PRN Reason: Protocol Last Admin: 07/23/16 10:21 Dose: 40 mg Gabapentin (Neurontin) 100 mg PO TID [facility] PRN Reason: Protocol Last Admin: 07/23/16 14:45 Dose: 100 mg Guaifenesin (Robitussin) 100 mg PO Q4H PRN PRN Reason: Cough Last Admin: 07/23/16 08:23 Dose: 100 mg Insulin Detemir (Levemir) 20 unit SC HS [facility] Last Admin: 07/22/16 22:33 Dose: 20 unit Insulin Human Regular (Humulin R Med) 0 units SC ACHS [facility] PRN Reason: Protocol Last Admin: 07/23/16 11:26 Dose: 5 units Losartan Potassium (Cozaar) 25 mg PO DAILY [facility] Last Admin: 07/23/16 10:20 Dose: 25 mg Nicotine (Nicoderm Cq) 1 patch TD DAILY [facility] Last Admin: 07/23/16 10:22 Dose: 1 patch Pantoprazole Sodium (Protonix Inj) 40 mg IVP DAILY [facility] Last Admin: 07/23/16 10:22 Dose: 40 mg Quetiapine Fumarate (Seroquel) 100 mg PO HS [facility] PRN Reason: Protocol - Labs Labs: 07/23/16 07:23 07/23/16 07:23 PT 10.4 Seconds (9.9-11.8) 07/22/16 12:10 INR 0.96 (0.93-1.08) 07/22/16 12:10 APTT 23.4 Seconds (23.7-30.8) L 07/22/16 12:10 Attending/Attestation - Attestation I have personally seen and examined this patient.: Yes I have fully participated in the care of the patient.: Yes I have reviewed all pertinent clinical information, including history, physical exam and plan: Yes Notes (Text): Patient was seen and examined with medical office technologist .Agreed with resident assessment and plan. 66 yrs female with past medical history of IRDM, CAD s/p RCA stent placement , COPD, anxiety, tobacco use, HTN and HLD is admitted with left foot numbness and weakness, has sensory deficit in left foot and left lower leg, CT head is negative. The etiology of patient symptoms unclear, could be CVA/ L4-5 radiculopathy, Neurology consult is pending, we have started her on Neurontin,we will also get carotid Doppler, Physical therapy evaluation is pending, Management plan was discussed in detail with patient Education was provided.
[2016-07-23] MEDS: Albuterol 0.5% Inhal Sol (2.5 mg/0.5 ml) UD IH PRN (19:36)
[2016-07-23] MEDS: Insulin Detemir 100 units/ml Vial (Levemir) SC SCH (22:08)
[2016-07-24 07:42] LABS: ADD MANUAL DIFF? NO
[2016-07-24 07:47] LABS: BASO # 0.03 K/mm3 (0.0-2.0); BASO % 0.3 % (0.0-3.0); EOS # 0.5 (0.0-0.7); GRAN # 4.82 (1.4-6.5); GRAN % 52.7 % (50.0-68.0); HEMATOCRIT 35.6 % (36.0-48.0); LYMPH # 3.1 (1.2-3.4); LYMPH % 33.6 % (22.0-35.0); MEAN CELL VOLUME 87.9 fL (80.0-105.0); MEAN CORPUSCULAR HEMOGLOBIN 29.9 pg (25.0-35.0); MONO # 0.8 (0.1-0.6); MONO % 8.4 % (1.0-6.0); PLATELET COUNT 382 10^3/uL (120.0-450.0); RED CELL DISTRIBUTION WIDTH 14.1 % (11.5-14.5); WHITE BLOOD COUNT 9.2 10^3/ul (4.5-11.0)
[2016-07-24] MEDS: Budesonide 0.5 mg/2 ml Inhal Susp UD IH SCH ×2 (07:52→20:50)
[2016-07-24] MEDS: Arformoterol 15 mcg/2 ml Inh Sol IH SCH ×2 (07:52→20:50)
[2016-07-24 08:02] LABS: ALKALINE PHOSPHATASE 95 U/L (38-133); ALT/SGPT 37 U/L (7-56); AST/SGOT 27 U/L (15-39); BILIRUBIN,TOTAL 0.4 mg/dL (0.2-1.3); BLOOD UREA NITROGEN 13 mg/dL (7-21); CALCIUM 8.3 mg/dL (8.4-10.5); CARBON DIOXIDE 27 mmol/L (21-33); CHLORIDE 98 mmol/L (95-110); GFR AFRICAN-AMERICAN > 60; GLUCOSE,RANDOM 206 mg/dL (70-110); POTASSIUM 4.6 mmol/L (3.6-5.0); SODIUM 131 mmol/L (132-148); TOTAL PROTEIN 5.5 g/dL (5.8-8.3)
[2016-07-24] MEDS: guaiFENesin 100 mg/5 ml Syrup UD PO PRN ×2 (08:09→22:42)
[2016-07-24] MEDS: Pantoprazole 40 mg EC Tab PO SCH (08:09)
[2016-07-24] MEDS: Insulin Reg-MEDIUM-Coverage SC SCH ×4 (08:10→22:40)
[2016-07-24] MEDS: Aspirin 325 mg EC Tablets PO SCH (10:10)
[2016-07-24] MEDS: Enoxaparin 30 mg Syringe SC SCH (10:11)
[2016-07-24] MEDS ORDERED: Sodium Chloride 0.9% 1,000 ML IV ONE (10:46)
--- NOTE | 2016-07-24 12:16 | RAD ---
PROCEDURE: Left Foot Radiographs. HISTORY: left foot pain COMPARISON: None. FINDINGS: BONES: Normal. No fracture. JOINTS: Normal. SOFT TISSUES: Normal. OTHER FINDINGS: None. IMPRESSION: Normal left foot radiographs.
--- NOTE | 2016-07-24 12:45 | CP.PCM.PN ---
<Ludwin Cooper - Last Filed: 07/24/16 13:43> Subjective - Date & Time of Evaluation Date of Evaluation: 07/24/16 Time of Evaluation: 09:30 - Subjective Subjective: Dr. Cooper PGY 1 Hospitalist Note Patient seen and evaluated at bedside. She states she has been tired and was sleepy all day yesterday. She also notes her left foot numbness is still present but no pain noted. She has been able to walk to the bathroom without complaints. She denies any nausea, vomiting, chest pain, SOB, fever, or chills. She voices that she would like to see her primary care physician. Objective - Vital Signs/Intake and Output Vital Signs (last 24 hours): Temp Pulse Resp BP Pulse Ox 97.9 F 84 17 90/52 L 98 07/24/16 06:00 07/24/16 10:12 07/24/16 06:00 07/24/16 10:12 07/24/16 06:00 Intake and Output: 07/24/16 07/24/16 06:59 18:59 Intake Total 1580 480 Balance 1580 480 - Medications Medications: Current Medications Acetaminophen (Tylenol 325mg Tab) 650 mg PO Q6H PRN PRN Reason: Pain, moderate (4-7) Last Admin: 07/24/16 12:36 Dose: 650 mg Albuterol Sulfate (Albuterol 0.5% Inhal Chely (2.5 Mg/0.5 Ml) Ud) 2.5 mg IH [id number] PRN PRN Reason: Shortness of Breath Last Admin: 07/23/16 19:36 Dose: 2.5 mg Alprazolam (Xanax) 1 mg PO QID [facility] PRN Reason: Protocol Stop: 07/29/16 18:01 Last Admin: 07/24/16 10:07 Dose: 1 mg Arformoterol Tartrate (Brovana) 15 mcg IH [id number] [facility] Last Admin: 07/24/16 07:52 Dose: 15 mcg Aspirin (Ecotrin) 325 mg PO DAILY [facility] Last Admin: 07/24/16 10:10 Dose: 325 mg Atorvastatin Calcium (Lipitor) 20 mg PO DAILY [facility] Last Admin: 07/24/16 10:11 Dose: 20 mg Budesonide (Pulmicort Respules) 0.5 mg IH [id number] [facility] Last Admin: 07/24/16 07:52 Dose: 0.5 mg Clopidogrel Bisulfate (Plavix) 75 mg PO DAILY [facility] Last Admin: 07/24/16 10:07 Dose: 75 mg Enoxaparin Sodium (Lovenox) 40 mg SC DAILY [facility] PRN Reason: Protocol Last Admin: 07/24/16 10:11 Dose: 40 mg Gabapentin (Neurontin) 100 mg PO TID [facility] PRN Reason: Protocol Last Admin: 07/24/16 10:07 Dose: 100 mg Guaifenesin (Robitussin) 100 mg PO Q4H PRN PRN Reason: Cough Last Admin: 07/24/16 08:09 Dose: 100 mg Sodium Chloride (Sodium Chloride 0.9%) 1,000 mls @ 100 mls/hr IV .Q10H ONE Stop: 07/24/16 20:45 Insulin Detemir (Levemir) 20 unit SC [facility] Last Admin: 07/23/16 22:08 Dose: 20 unit Insulin Human Regular (Humulin R Med) 0 units SC ACHS [facility] PRN Reason: Protocol Last Admin: 07/24/16 12:37 Dose: 5 units Losartan Potassium (Cozaar) 25 mg PO DAILY [facility] Last Admin: 07/24/16 10:12 Dose: Not Given Nicotine (Nicoderm Cq) 1 patch TD DAILY [facility] Last Admin: 07/24/16 10:14 Dose: 1 patch Pantoprazole Sodium (Protonix Ec Tab) 40 mg PO ACB [facility] Last Admin: 07/24/16 08:09 Dose: 40 mg Quetiapine Fumarate (Seroquel) 100 mg PO [facility] PRN Reason: Protocol - Labs Labs: 07/24/16 07:30 07/24/16 07:30 PT 10.4 Seconds (9.9-11.8) 07/22/16 12:10 INR 0.96 (0.93-1.08) 07/22/16 12:10 APTT 23.4 Seconds (23.7-30.8) L 07/22/16 12:10 - Constitutional Appears: Non-toxic, No Acute Distress - Head Exam Head Exam: ATRAUMATIC, NORMOCEPHALIC - Eye Exam Eye Exam: EOMI, Normal appearance, PERRL Pupil Exam: NORMAL ACCOMODATION, PERRL - ENT Exam ENT Exam: Mucous Membranes Moist. absent: Normal Oropharynx (poor dentition) - Respiratory Exam Respiratory Exam: NORMAL BREATHING PATTERN. absent: Rales, Rhonchi, Wheezes - Cardiovascular Exam Cardiovascular Exam: REGULAR RHYTHM, +S1, +S2. absent: Gallop, Rubs, Murmur - GI/Abdominal Exam GI & Abdominal Exam: Soft, Normal Bowel Sounds. absent: Tenderness - Extremities Exam Extremities Exam: Tenderness (dorsum of left foot between great toe and second to). absent: Normal Inspection (mild tremor), Pedal Edema - Back Exam Back Exam: NORMAL INSPECTION. absent: muscle spasm, rash noted, tenderness - Neurological Exam Neurological Exam: Alert, Awake, CN II-XII Intact, Oriented x3 - Psychiatric Exam Psychiatric exam: Normal Affect, Normal Mood - Skin Skin Exam: Dry, Intact, Normal Color, Warm Assessment and Plan - Assessment and Plan (Free Text) Assessment: 66yo female with history of CAD, COPD, HTN, HLD, tobacco use, anxiety presents c /o left foot numbness for past 4 days associated with parasthesias, decreased sensation and lightheadedness. Plan: Left foot numbness * Neurology consulted, help appreciated * Head CT reviewed; no acute intracranial pathology [see full report] * EKG reviewed; normal sinus rhythm with left bundle branch block, no acute ST- Twave changes; unchanged from prior EKG * LE doppler showed no evidence of DVT * Neurochecks q4h * Vit B12 snl * Vit B6 pending * Carotid doppler pending final report * Foot x-ray negative for fractures * Continue ASA, plavix, lipitor, lisinopril * Continue gabapentin for neuropathy COPD * Continue home meds * CXR reviewed; no apparent active disease Hypertension * Patient's BP low this morning 87/64 and 90/52 * Hold Cozaar and start IVF hydration * may be reason for dizziness Hyperlipidemia * Continue home meds DM type 2 * Levemir 20u HS * Humalog low dose sliding scale * consistent carb diet * Fingersticks ACHS CAD * Continue ASA, plavix, lipitor, lisinopril DVT/GI Prophylaxis * Lovenox/Protonix Patient seen and case discussed with attending <Yareli Parkinson - Last Filed: 07/24/16 14:22> Objective - Vital Signs/Intake and Output Vital Signs (last 24 hours): Temp Pulse Resp BP Pulse Ox 97.9 F 84 17 90/52 L 98 07/24/16 06:00 07/24/16 10:12 07/24/16 06:00 07/24/16 10:12 07/24/16 06:00 Intake and Output: 07/24/16 07/24/16 06:59 18:59 Intake Total 1580 480 Balance 1580 480 - Medications Medications: Current Medications Acetaminophen (Tylenol 325mg Tab) 650 mg PO Q6H PRN PRN Reason: Pain, moderate (4-7) Last Admin: 07/24/16 12:36 Dose: 650 mg Albuterol Sulfate (Albuterol 0.5% Inhal Chely (2.5 Mg/0.5 Ml) Ud) 2.5 mg IH [id number] PRN PRN Reason: Shortness of Breath Last Admin: 07/23/16 19:36 Dose: 2.5 mg Alprazolam (Xanax) 1 mg PO QID [facility] PRN Reason: Protocol Stop: 07/29/16 18:01 Last Admin: 07/24/16 10:07 Dose: 1 mg Arformoterol Tartrate (Brovana) 15 mcg IH [id number] [facility] Last Admin: 07/24/16 07:52 Dose: 15 mcg Aspirin (Ecotrin) 325 mg PO DAILY [facility] Last Admin: 07/24/16 10:10 Dose: 325 mg Atorvastatin Calcium (Lipitor) 20 mg PO DAILY [facility] Last Admin: 07/24/16 10:11 Dose: 20 mg Budesonide (Pulmicort Respules) 0.5 mg IH [id number] [facility] Last Admin: 07/24/16 07:52 Dose: 0.5 mg Clopidogrel Bisulfate (Plavix) 75 mg PO DAILY [facility] Last Admin: 07/24/16 10:07 Dose: 75 mg Enoxaparin Sodium (Lovenox) 40 mg SC DAILY [facility] PRN Reason: Protocol Last Admin: 07/24/16 10:11 Dose: 40 mg Gabapentin (Neurontin) 100 mg PO TID [facility] PRN Reason: Protocol Last Admin: 07/24/16 10:07 Dose: 100 mg Guaifenesin (Robitussin) 100 mg PO Q4H PRN PRN Reason: Cough Last Admin: 07/24/16 08:09 Dose: 100 mg Sodium Chloride (Sodium Chloride 0.9%) 1,000 mls @ 100 mls/hr IV .Q10H ONE Stop: 07/24/16 20:45 Insulin Detemir (Levemir) 20 unit SC HS [facility] Last Admin: 07/23/16 22:08 Dose: 20 unit Insulin Human Regular (Humulin R Med) 0 units SC ACHS [facility] PRN Reason: Protocol Last Admin: 07/24/16 12:37 Dose: 5 units Losartan Potassium (Cozaar) 25 mg PO DAILY [facility] Last Admin: 07/24/16 10:12 Dose: Not Given Nicotine (Nicoderm Cq) 1 patch TD DAILY [facility] Last Admin: 07/24/16 10:14 Dose: 1 patch Pantoprazole Sodium (Protonix Ec Tab) 40 mg PO ACB [facility] Last Admin: 07/24/16 08:09 Dose: 40 mg Quetiapine Fumarate (Seroquel) 100 mg PO HS [facility] PRN Reason: Protocol - Labs Labs: 07/24/16 07:30 07/24/16 07:30 PT 10.4 Seconds (9.9-11.8) 07/22/16 12:10 INR 0.96 (0.93-1.08) 07/22/16 12:10 APTT 23.4 Seconds (23.7-30.8) L 07/22/16 12:10 Attending/Attestation - Attestation I have personally seen and examined this patient.: Yes I have fully participated in the care of the patient.: Yes I have reviewed all pertinent clinical information, including history, physical exam and plan: Yes Notes (Text): 07/24/16 14:15 66 year old female with past medical history of diabetes, CAD, COPD, hypertension and anxiety who presented with dizziness, left foot numbness and weakness. CT head is negative. Foot xray was negative. Carotid dopplers are pending. Neurology consultation and PT evaluation were requested. Patient is on aspirin and statin. She is on gabapentin. This morning she is borderline hypotensive at 90/52. Will hold cozaar and start iv fluids. Today she is requesting to be seen by her pmd. I did discuss with Dr. Perfecto Flores who will assume care starting tomorrow. Yareli Parkinson MD Hospitalist.
--- NOTE | 2016-07-24 18:10 | US ---
PROCEDURE: Bilateral carotid artery duplex ultrasound HISTORY: Carotid stenosis PHYSICIAN(S): Eros Holbrook MD. TECHNIQUE: Duplex sonography and color-flow Doppler were used to evaluate the carotid bifurcations and limited segments of the vertebral arteries bilaterally. FINDINGS: There is moderate diffuse heterogeneous plaque noted bilaterally. The peak systolic velocity in the proximal right internal carotid artery is 127 cm/sec. This corresponds to a 40-59 percent proximal right ICA stenosis. Normal systolic velocities are noted in the proximal right external carotid artery. There is antegrade flow in the right vertebral artery. The peak systolic velocity in the proximal left internal carotid artery is 100 cm/sec. This corresponds to a 20 to 39% proximal left ICA stenosis. Normal systolic velocities are noted in the proximal left external carotid artery. There is antegrade flow in the left vertebral artery. IMPRESSION: 1. 40-59 percent proximal right ICA stenosis. 2. 20-39 percent proximal left ICA stenosis. 3. Antegrade flow in both vertebral arteries.
--- NOTE | 2016-07-24 19:42 | CON ---
DATE: 07/24/2016 HISTORY OF PRESENT ILLNESS: This is a 66-year-old female with past medical history of COPD, coronary artery disease, who came to hospital feeling shaky and associated with neck discomfort. The patient 's symptoms began with a cold, cough, congestion for 2 weeks. PMD gave the antibiotic Levaquin. The patient has pain and foot swelling and reports of dragging the left foot. PAST MEDICAL HISTORY: COPD, coronary artery disease. HOME MEDICATIONS: Lipitor, Seroquel, Xanax, Ecotrin, Toprol, Diovan. REVIEW OF SYSTEMS: A 10-point review of system was negative. PHYSICAL EXAMINATION: VITAL SIGNS: Blood pressure 155/74. HEENT: Normocephalic, atraumatic. NECK: Supple. NEUROLOGIC: Awake and alert, oriented. No aphasia. Cranial nerves II through XII were tested. Pup ils reactive. Spontaneous movement of the extremities noted. Deep tendon reflexes 1+. Both plantar s are downgoing. Sensory appears intact. Cerebellar gait deferred. IMPRESSION: A 66-year-old female with a prior cardiac history of recent stents and came with syncope . CAT scan of the head was unremarkable. PLAN: Continue present management. Will follow up. Yossi Turner MD cc: [id number] TT: 07/24/2016 19:41:20 Confirmation # [id number] Dictation # [id number] vinayak
[2016-07-24] MEDS ORDERED: Alum-Mag Hydrox-Simethicone Susp (30 mL) PO ONE (21:46)
[2016-07-24] MEDS: Insulin Detemir 100 units/ml Vial (Levemir) SC SCH (21:59)
[2016-07-25 07:47] LABS: ADD MANUAL DIFF? NO
[2016-07-25 07:59] LABS: BASO # 0.04 K/mm3 (0.0-2.0); BASO % 0.5 % (0.0-3.0); EOS # 0.5 (0.0-0.7); EOS % 5.7 % (1.5-5.0); GRAN # 4.35 (1.4-6.5); GRAN % 52.5 % (50.0-68.0); HEMATOCRIT 35.1 % (36.0-48.0); LYMPH # 2.6 (1.2-3.4); LYMPH % 30.9 % (22.0-35.0); MEAN CELL VOLUME 86.9 fL (80.0-105.0); MEAN CORPUSCULAR HEMOGLOBIN 30.2 pg (25.0-35.0); MEAN CORPUSCULAR HGB CONC 34.8 g/dl (31.0-37.0); MEAN PLATELET VOLUME 9.2 fl (7.0-11.0); MONO # 0.9 (0.1-0.6); MONO % 10.4 % (1.0-6.0); PLATELET COUNT 380 10^3/uL (120.0-450.0); RED CELL DISTRIBUTION WIDTH 13.9 % (11.5-14.5); WHITE BLOOD COUNT 8.3 10^3/ul (4.5-11.0)
[2016-07-25] MEDS: Budesonide 0.5 mg/2 ml Inhal Susp UD IH SCH (08:06)
[2016-07-25] MEDS: Arformoterol 15 mcg/2 ml Inh Sol IH SCH (08:06)
[2016-07-25 08:08] LABS: ALB/GLOB RATIO 1.1 (1.1-1.8); ALKALINE PHOSPHATASE 119 U/L (38-133); ALT/SGPT 41 U/L (7-56); AST/SGOT 32 U/L (15-39); BILIRUBIN,TOTAL 0.5 mg/dL (0.2-1.3); BLOOD UREA NITROGEN 10 mg/dL (7-21); CALCIUM 8.7 mg/dL (8.4-10.5); CARBON DIOXIDE 27 mmol/L (21-33); CHLORIDE 94 mmol/L (98-107); GFR AFRICAN-AMERICAN > 60; GLUCOSE,RANDOM 229 mg/dL (70-110); SODIUM 125 mmol/L (132-148); TOTAL PROTEIN 5.8 g/dL (5.8-8.3)
[2016-07-25] MEDS: Insulin Reg-MEDIUM-Coverage SC SCH ×3 (08:25→17:48)
[2016-07-25] MEDS: Pantoprazole 40 mg EC Tab PO SCH (08:26)
[2016-07-25] MEDS ORDERED: Insulin Detemir 100 units/ml Vial (Levemir) SC SCH (08:38)
[2016-07-25 08:47] VITALS: BP 89/63; PULSE 86; RESP 20; TEMP 98.3; O2SAT 97
--- NOTE | 2016-07-25 09:26 | PN ---
DATE: 07/25/2016 SUBJECTIVE: The patient is seen and examined at bedside on the telemetry limon. No acute events overnight. She remains afebrile and hemodynamically stable. This morning, the patient reports some improvement in her left foot paresthesias and reports resolution of her reported foot drop. Otherwise she feels well overall and denies any specific complaints. OBJECTIVE: VITAL SIGNS: Temperature 98, pulse 78, blood pressure 148/82, respiratory rate 20, oxygen saturation 99% on room air. GENERAL: No apparent distress. HEENT: PERRL. EOMI. No scleral icterus. No conjunctival pallor. NECK: No JVD, no bruits. LUNGS: Clear to auscultation. CARDIOVASCULAR: Regular rate and rhythm. Normal S1 and S2. ABDOMEN: Normoactive bowel sounds, soft, nontender, nondistended. EXTREMITIES: No edema. NEUROLOGIC: Awake, alert, and oriented x 3. No focal motor deficits. Sensation is intact. LABORATORY DATA: WBC 8.3 with 52% neutrophils, hemoglobin 12, hematocrit 35, platelets 380. Sodium 125, potassium 4, chloride 94, bicarb 27, BUN 10, creatinine 0.7, glucose 229. IMAGING STUDIES: X-ray of left foot demonstrates no acute pathology. ASSESSMENT: The patient is a 66-year-old woman with multiple medical comorbidities including chronic obstructive pulmonary disease with active extensive smoking history, coronary artery disease, status post percutaneous coronary intervention with stent placement x 2, hypertension, poorly-controlled insulin-dependent diabetes mellitus with diabetic neuropathy, hyperlipidemia, anxiety disorder, and syndrome of inappropriate antidiuretic hormone secretion who was recently treated on an outpatient basis for acute bronchitis with a 7- day course of prednisone and Levaquin who presented to [facility] Emergency Department with complaint of left calf pain and paresthesias to the dorsum of the left foot. PLAN: 1. Left foot pain. Consider etiology secondary to Achilles tendinopathy given the patient's recent use of quinolones and steroids for acute bronchitis. Differential diagnosis also includes possible diabetic neuropathy. The patient reports slight improvement in her symptoms since initiation of Neurontin. 2. Insulin-dependent diabetes mellitus, poorly controlled. Fingersticks range from 130-250. We will increase Levemir to 25 units subcutaneously at bedtime. Continue with medium dose insulin sliding scale for coverage, continue to monitor fingersticks q. a.c. and at bedtime. Continue with Neurontin 100 mg p.o. t.i.d. for neuropathy. 3. Coronary artery disease, status post percutaneous coronary intervention with stent placement. Continue with aspirin 81 mg p.o. daily, Plavix 75 mg p.o. daily, and Lipitor 20 mg p.o. daily. Continue with Toprol XL 100 mg p.o. daily and losartan 25 mg p.o. daily. 4. COPD. Continue with bronchodilators and supplemental oxygen as needed. 5. Hypertension. Blood pressure is slightly elevated. The patient has been restarted on Toprol XL 100 mg p.o. daily. Continue with losartan 25 mg p.o. daily. We will continue to monitor hemodynamically and adjust antihypertensives as needed. 6. Hyperlipidemia. Continue with Lipitor 20 mg p.o. daily. 7. Anxiety disorder. Continue with Xanax 1 mg p.o. q.i.d. and Seroquel 100 mg p.o. at bedtime. 8. Tobacco dependence. Continue with nicotine 14 mg transdermal patch. 9. SIADH. We will restart Tolvaptan 15 mg p.o. daily. 9. Prophylaxis. Continue with Protonix 40 mg p.o. daily for GI prophylaxis and Lovenox 40 mg subcutaneously daily for DVT prophylaxis. CODE STATUS: DNR. Tj Arenas MD cc: [phone] TT: 07/25/2016 09:15:51 Confirmation # [id number] Dictation # [id number] amado 07/25/2016 08:25:13 GERARD
[2016-07-25] MEDS ORDERED: Tolvaptan 15 MG TAB PO SCH (10:00)
[2016-07-25] MEDS: Enoxaparin 30 mg Syringe SC SCH (10:27)
[2016-07-25] MEDS: guaiFENesin 100 mg/5 ml Syrup UD PO PRN (10:37)
[2016-07-26 03:12] LABS: VITAMIN B6 4.2 ng/mL (2.1-21.7)
[2016-07-26] MEDS ORDERED: Metoprolol Succinate 100 mg XL Tab PO SCH (08:00)
--- NOTE | 2016-07-26 12:28 | DS ---
ADMITTING DIAGNOSIS: Left foot pain. DISCHARGE DIAGNOSIS: Left foot pain secondary to Achilles tendinopathy. SECONDARY DIAGNOSES: Insulin-dependent diabetes mellitus (poorly controlled) with diabetic neuropath y, coronary artery disease status post percutaneous coronary intervention with stent placement, chron ic obstructive pulmonary disease, hypertension, hyperlipidemia, anxiety disorder, tobacco dependence, syndrome of inappropriate antidiuretic hormone secretion. CONSULTATIONS: Dr. Turner (neurology). IMAGING STUDIES: 1. Chest x-ray, which demonstrated no active disease. 2. CT of the head without contrast, which demonstrated no acute findings. 3. Venous ultrasound of the bilateral lower extremities, which demonstrated no evidence of DVT. 4. Carotid artery ultrasound, which demonstrated 40%-59% proximal right ICA stenosis, and 20%-39% pr oximal left ICA stenosis. 5. X-ray of the left foot, which demonstrated no acute pathology. HISTORY OF PRESENT ILLNESS: The patient is a 66-year-old woman with multiple medical comorbidities i ncluding CAD status post PCI with stent placement, COPD with active tobacco use, hypertension, hyperl ipidemia, and poorly controlled insulin-dependent diabetes mellitus with diabetic neuropathy, who pre sents to [facility] with a 4-day history of left foot pain and paresthesias. The patient was recently on a course of Levaquin and prednisone for treatment of an acute bronchitis. She reports onset of her symptoms shortly after initiating her Levaquin and prednisone. The patien t reported significant posterior calf pain with subsequent development of paresthesias to the dorsum of her left foot. Given the progression of her symptoms, she opted for evaluation in the Emergency D epartment. Upon arrival to the Emergency Department, she was noted to be afebrile and hemodynamically stable, an d initial workup was unremarkable. Given her ongoing symptoms, the patient was admitted to the telem etry limon for continued neurological evaluation and physical therapy evaluation. HOSPITAL COURSE: Upon admission to the telemetry limon, the patient was evaluated by Dr. Turner of [facility] and was found to have a perfectly normal neurological examination. The patient reported impr ovement in her symptoms during her hospital stay. She was told that the etiology of her pain was lik syed secondary to diabetic neuropathy given that she had improved with initiation of gabapentin, as we ll as likely Achilles tendinopathy given her recent quinolone use. During her hospital stay, the pat ient was encouraged to ambulate with physical therapy, which she did so without any difficulties, and by hospital day #3, she was deemed stable for discharge to home. CONDITION: Good, improved. DISPOSITION: To home. DISCHARGE MEDICATIONS: Aspirin 81 mg p.o. daily, Plavix 75 mg p.o. daily, Lipitor 40 mg p.o. daily, Toprol XL 100 mg p.o. daily, losartan 100 mg p.o. daily, Advair 250/50 mcg 1 puff q. 12 hours, Ventol in HFA 2 puffs q. 4-6 hours p.r.n. dyspnea/wheeze, Seroquel 50 mg p.o. at bedtime, Levemir 25 units s ubcutaneously at bedtime, tolvaptan 15 mg p.o. daily, Xanax 1 mg p.o. q.i.d. DISCHARGE INSTRUCTIONS: The patient was advised that if she has any recurrence of her symptoms to pr esent to her PMD or to the nearest Emergency Department immediately. FOLLOWUP: The patient to follow up with her PMD within 1 week of discharge. Tj Arenas MD cc: [phone] TT: 07/26/2016 12:27:43 jn
== END 2016-07-25 18:21 | disposition home or self-care (01) | DRG 74 ==
LOC: ED 11:09 → ERH 14:19 → 3RSO 16:34
PROVIDERS: ADMIT Internal Medicine; ATTEND Student in an Organized Health Care Education/Training Program
PROC: 3E0F7GC Introduction of Other Therapeutic Substance into Respiratory Tract, Via Natural or Artificial Opening (ICD-10-PCS; principal; 2016-07-22)
DX: E11.40 Type 2 diabetes mellitus with diabetic neuropathy, unspecified (principal); E22.2 Syndrome of inappropriate secretion of antidiuretic hormone; J44.9 Chronic obstructive pulmonary disease, unspecified; E11.65 Type 2 diabetes mellitus with hyperglycemia; I10 Essential (primary) hypertension; I25.10 Atherosclerotic heart disease of native coronary artery without angina pectoris; R20.0 Anesthesia of skin; F41.9 Anxiety disorder, unspecified; E78.5 Hyperlipidemia, unspecified; E87.6 Hypokalemia; K21.9 Gastro-esophageal reflux disease without esophagitis; M21.379 Foot drop, unspecified foot; F17.210 Nicotine dependence, cigarettes, uncomplicated; Z66 Do not resuscitate; Z79.4 Long term (current) use of insulin; Z95.5 Presence of coronary angioplasty implant and graft; Z80.1 Family history of malignant neoplasm of trachea, bronchus and lung

== ENCOUNTER 2017-06-15 11:33 | Emergency (ER) | payer MEDICARE ==
[2017-06-15 11:47] VITALS: BMI 23.3
[2017-06-15 11:50] VITALS: TEMP 99.3
[2017-06-15] MEDS ORDERED: guaiFENesin DM 200 mg-20 mg/10 ml UD PO ONE (12:01)
--- NOTE | 2017-06-15 12:05 | ED PDOC ---
Arrival/HPI - General Chief Complaint: Flu-like Symptoms Time Seen by Provider: 06/15/17 12:00 Historian: Patient, Family - History of Present Illness Narrative History of Present Illness (Text): 06/15/17 12:00 pt p/w + 3-4 days onset of worsening coughing, with white productive sputum, + sore throat, last 2-3 days of intermittent fever, Tmax ~ 101.2; + shivers/ weakness, mild diffuse body pain, decr appetite, + malaise; pt states no sweats , no cp, + intermittent sob, no palpitations, no abd pain, + nausea, no vomiting , no numbness/tingling, no urinary/bowel changes; pt denied LOC, + lightheadedness, + general weakness, no fall/trauma/sick contact, no travel manager arrived to ED for further eval pt's without other complaints pt did not receive annual flu shoot pt is a ~ 1 ppd smoker recently decreased down to 10 cig/day smoker PCP: Maritza Time/Duration: < week (~3-4 days) Symptom Onset: Gradual Symptom Course: Worsening Activities at Onset: Rest Context: Home Past Medical History - Provider Review Nursing Documentation Reviewed: Yes - Travel History Have you recently traveled outside [place] w/in the past 3 mons?: No - Past History Past History: No Previous - Infectious Disease Hx of Infectious Diseases: None - Tetanus Immunization Tetanus Immunization: Unknown - Cardiac Hx Cardiac Disorders: Yes (CAD, PAD, angioplasty) Hx Hypertension: Yes - Pulmonary Hx Chronic Obstructive Pulmonary Disease (COPD): Yes - Neurological Hx Neurological Disorder: Yes Hx Dizziness: Yes - HEENT Hx HEENT Disorder: No - Renal Hx Renal Disorder: No - Endocrine/Metabolic Hx Diabetes Mellitus Type 2: Yes - Hematological/Oncological Hx Blood Disorders: No - Integumentary Hx Dermatological Disorder: Yes Hx Psoriasis: Yes - Musculoskeletal/Rheumatological Hx Musculoskeletal Disorders: Yes (LUMBAR RADICULOPATHY,L ULNAR NERVE ENTRAPMENT ,DECOMPRESSION) Hx Back Pain: Yes - Gastrointestinal Hx Gastrointestinal Disorders: Yes Hx Gastroesophageal Reflux: Yes - Genitourinary/Gynecological Hx Genitourinary Disorders: Yes (1 1 MISCARRIAGE) Other/Comment: OOPHORECTOMY - Psychiatric Hx Psychophysiologic Disorder: Yes Hx Anxiety: Yes Hx Depression: Yes Hx Emotional Abuse: No Hx Physical Abuse: No Hx Substance Use: No - Surgical History Hx Cardiac Catheterization: Yes (2007) Hx Coronary Stent: Yes (X2) Other/Comment: trigger finger and ulna sx - Anesthesia Hx Anesthesia: Yes Hx Anesthesia Reactions: No Hx Malignant Hyperthermia: No - Suicidal Assessment Feels Threatened In Home Enviroment: No Family/Social History - Physician Review Nursing Documentation Reviewed: Yes Family/Social History: No Known Family HX Smoking Status: Current Some Days Smoker Hx Alcohol Use: No Hx Substance Use: No Hx Substance Use Treatment: No Allergies/Home Meds Allergies/Adverse Reactions: Allergies bacitracin Allergy (Verified 06/15/17 11:47) SWELLING latex Allergy (Verified 06/15/17 11:47) RASH Penicillins Allergy (Verified 06/15/17 11:47) ANAPHYLAXIS Home Medications: Home Meds Medication Instructions Recorded Confirmed Atorvastatin Calcium [Lipitor] 20 mg PO DAILY 04/18/12 06/15/17 QUEtiapine [Seroquel] 100 mg PO DAILY 10/31/13 06/15/17 Alprazolam [Xanax] 1 mg PO QID 10/24/14 06/15/17 Aspirin [Ecotrin] 325 mg PO DAILY 12/26/14 06/15/17 Esomeprazole Magnesium [Nexium] 40 mg PO DAILY 09/19/15 06/15/17 Metoprolol Succinate [Toprol XL] 200 mg PO DAILY 01/06/16 06/15/17 Tiotropium [Spiriva] 18 mcg IH DAILY 01/06/16 06/15/17 Albuterol Sulfate [Proair Hfa] 1 inh INH PRN PRN 07/22/16 06/15/17 Fluticasone/Salmeterol 250/50 1 inh INH BID 07/22/16 06/15/17 [Advair Diskus 250/50] Insulin Lispro [humALOG] 0 units XX PRN PRN 07/22/16 06/15/17 Methylprednisolone 0 mg PO . PRESCRIBED 07/22/16 06/15/17 Mometasone 0.1% [Elocon Cream] 1 appful TOP PRN PRN 07/22/16 06/15/17 Valsartan [Diovan] 25 mg PO DAILY 07/22/16 06/15/17 Varenicline Tartrate [Chantix] 0 mg PO BID 07/22/16 06/15/17 Review of Systems - Review of Systems Constitutional: Fatigue, Fevers. absent: Night Sweats Eyes: Normal ENT: Normal Respiratory: SOB, Cough, Sputum (whitish material) Cardiovascular: Normal Gastrointestinal: Nausea. absent: Abdominal Pain, Diarrhea, Vomiting Genitourinary Female: Normal Musculoskeletal: Normal Skin: Normal Neurological: Dizziness Endocrine: Normal Hemo/Lymphatic: Normal Psychiatric: Normal Physical Exam Vital Signs Reviewed: Yes Vital Signs Temp Pulse Resp BP Pulse Ox 06/15/17 15:36 75 17 126/70 98 06/15/17 15:24 79 18 124/68 98 06/15/17 13:51 82 18 128/65 98 06/15/17 11:50 99.3 F 80 19 126/46 L 97 06/15/17 11:49 99.3 F 80 19 126/46 L 97 Temperature: Afebrile Blood Pressure: Hypotensive Pulse: Regular Respiratory Rate: Normal Appearance: Positive for: Well-Appearing, Non-Toxic, Other (actively coughing, alert/awake, GCS = 15, oriented x 3, cooperative, NAD, uncomfortable, follows command with ease) Pain Distress: None Mental Status: Positive for: Alert and Oriented X 3 - Systems Exam Head: Present: Atraumatic, Normocephalic Pupils: Present: PERRL, Other (no nystagmus, no photophobia, sclera anicteric) Extroacular Muscles: Present: EOMI Conjunctiva: Present: Normal Ears: Present: Normal Mouth: Present: Normal Teeth, Other (mild dry oral mucosa, no drooling/stridor, no exudate/lesions, uvula/tongue are midline) Pharnyx: Present: Normal Nose (External): Present: Atraumatic Nose (Internal): Present: Normal Inspection Neck: Present: Normal Range of Motion, Trachea Midline, Other (no nuchal rigidity, no meningeal signs, no midline tenderness, no step off). No: MIDLINE TENDERNESS Respiratory/Chest: Present: Clear to Auscultation, Good Air Exchange Cardiovascular: Present: Regular Rate and Rhythm, Normal S1, S2, Other (no m/r/r ) Abdomen: Present: Normal Bowel Sounds, Other (well nourished female, no focal tenderness, no masses/rebound/guarding/rigidity, no mederos's sign, no mcburney' s point tenderness) Back: Present: Normal Inspection. No: Midline Tenderness Upper Extremity: Present: Normal Inspection, Normal ROM, NORMAL PULSES, Neurovascularly Intact, Capillary Refill < 2s Lower Extremity: Present: Normal Inspection, NORMAL PULSES, Normal ROM, Neurovascularly Intact Neurological: Present: GCS=15, CN II-XII Intact, Speech Normal Skin: Present: Warm, Normal Color, Other (cap refill ~ 1 sec, mild pallor, no ulcerations/petechiae) Psychiatric: Present: Alert, Oriented x 3 Medical Decision Making ED Course and Treatment: 06/15/17 12:04 Impression: cough/weakness/fever, sob i have consider all the differential diagnosis regarding pt's chief medical complaints/clinical findings, including but are not limited to: cough/weakness/ sob A/P: cough/fever/weakness, sob - xray - labs - ekg - observe - supportive care 06/15/17 14:[address] Lopez, pt's PCP, made aware of pt's medical complaints/ED diagnosis, agrees with ED mgt/txt, would like pt to receive zithromax po and pt can be discharged home with outpt f/u in the office in the morning pt is doing well pt with less coughing noted pt felt improved vital signs improved FS ~ 260s pt is made aware of her medical results pt is encouraged smoking cessation (pt is working on it) pt is encouraged fluid hydration pt will f/u as directed pt will be discharged home Re-evaluation Time: 14:24 Reassessment Condition: Improved - Lab Interpretations Lab Results: 06/15/17 12:30 06/15/17 12:30 Lab Results 06/15/17 12:30: Influenza Typ A,B (EIA) Negative for flu a/b 06/15/17 12:30: WBC 6.9, RBC 4.43, Hgb 13.3, Hct 37.9, MCV 85.6, MCH 30.0, MCHC 35.1, RDW 13.5, Plt Count 280, MPV 9.5, Gran % 64.2, Lymph % (Auto) 21.4 L, Cass % (Auto) 13.7 H, Eos % (Auto) 0.1 L, Baso % (Auto) 0.6, Gran # 4.42, Lymph # (Auto) 1.5, Cass # (Auto) 0.9 H, Eos # (Auto) 0.0, Baso # (Auto) 0.04 06/15/17 12:30: Sodium 127 L, Potassium 4.0, Chloride 96 L, Carbon Dioxide 22, Anion Gap 13, BUN 14, Creatinine 0.7, Est GFR ( Amer) > 60, Est GFR (Non- Af Amer) > 60, Random Glucose 352 H* D, Calcium 9.2, Total Bilirubin 0.3, AST 32 , ALT 53, Alkaline Phosphatase 223 H, Total Protein 5.9, Albumin 3.4, Globulin 2.5, Albumin/Globulin Ratio 1.3 06/15/17 12:20: Urine Color Light yellow, Urine Appearance Clear, Urine pH 6.0, Ur Specific [place] 1.010, Urine Protein Negative, Urine Glucose (UA) >=1000, Urine Ketones Negative, Urine Blood Trace-intact H, Urine Nitrate Negative, Urine Bilirubin Negative, Urine Urobilinogen 0.2, Ur Leukocyte Esterase Negative , Urine RBC Negative, Urine WBC Negative I have reviewed the lab results: Yes Interpretation: Abnormal lab values (decr NA, elevated GLUC) - RAD Interpretation Narrative RAD Interpretations (Text): 06/15/17 14:00 Chest X-ray: Creator : Saleem Cortes MD FINDINGS: LUNGS: No active pulmonary disease. PLEURA: No significant pleural effusion identified. No pneumothorax apparent. CARDIOVASCULAR: Normal. OSSEOUS STRUCTURES: No significant abnormalities. VISUALIZED UPPER ABDOMEN: Normal. OTHER FINDINGS: None. IMPRESSION: No active disease. Radiology Orders: 06/15/17 12:02 CHEST TWO VIEWS (PA/LAT) [RAD] Stat Client Relations Specialist: Radiologist - EKG Interpretation EKG Interpretation (Text): 06/15/17 14:24 NSR at 85 bpm, LAD, no ectopy, LBBB, qs in leads III, V1-3, inverted T in leads I L, no st changes, ABNL EKG; unchanged compare with old ekg 07/2016 Interpreted by ED Physician: Yes Type: 12 lead EKG Comparison: Similar to previous EKG - Medication Orders Current Medication Orders: Discontinued Medications Albuterol/Ipratropium (Duoneb 3 Mg/0.5 Mg (3 Ml) Ud) 3 ml IH Q15M GELA Stop: 06/15/17 12:46 Last Admin: 06/15/17 12:41 Dose: 3 ml Azithromycin (Zithromax) 500 mg PO STAT STA PRN Reason: Protocol Stop: 06/15/17 14:23 Last Admin: 06/15/17 14:46 Dose: 500 mg Guaifenesin/Dextromethorphan (Robitussin Dm) 10 ml PO ONCE ONE Stop: 06/15/17 12:02 Last Admin: 06/15/17 12:15 Dose: 10 ml Sodium Chloride (Sodium Chloride 0.9%) 1,000 mls @ 999 mls/hr IV .Q1H1M STA Stop: 06/15/17 15:21 Last Admin: 06/15/17 14:27 Dose: 999 mls/hr eMAR Start Stop Document 06/15/17 14:27 SF (Rec: 06/15/17 14:27 SF [email or web address] Intravenous Solution Start Date 06/15/17 Start Time 14:27 End Date 06/15/17 End time 15:28 Total Infusion Time 61 Methylprednisolone (Solu-Medrol) 125 mg IVP STAT STA Stop: 06/15/17 12:03 Last Admin: 06/15/17 12:15 Dose: 125 mg IVP Administration Document 06/15/17 12:15 SF (Rec: 06/15/17 12:15 SF [email or web address] Charges for Administration # of IVP Administrations 1 Ondansetron HCl (Zofran Inj) 4 mg IVP STAT STA Stop: 06/15/17 12:04 Last Admin: 06/15/17 12:15 Dose: 4 mg IVP Administration Document 06/15/17 12:15 SF (Rec: 06/15/17 12:15 SF [email or web address] Charges for Administration # of IVP Administrations 1 Disposition/Present on Arrival - Present on Arrival Any Indicators Present on Arrival: No History of DVT/PE: No History of Uncontrolled Diabetes: Yes Urinary Catheter: No History of Decub. Ulcer: No History Surgical Site Infection Following: None - Disposition Have Diagnosis and Disposition been Completed?: Yes Diagnosis: Bronchitis, Cough, Acute hyperglycemia, Mild dehydration, Hyponatremia Disposition: HOME/ ROUTINE Disposition Time: 15:00 Patient Plan: Discharge Condition: STABLE Discharge Instructions (ExitCare): Cough in Adults, Hyperglycemia, Adult, Dehydration, Adult (DC), Acute Bronchitis, Hyponatremia Print Language: NEPALI Additional Instructions: Make sure to see your doctor in 1-2 days (tomorrow in the office) DRINK PLENTY OF FLUIDS encourage smoking cessation take your medications as prescribed RETURN TO ED IF worse pain, cant breath, persistent vomiting, high fever >101- 102 for hours, altered behavior, unable to urinate, heavy/persistent bleeding, passing out, chest pain, or other medical emergencies Prescriptions: Azithromycin [Zithromax] 250 mg PO DAILY #4 tab guaiFENesin/Dextromethorphan [guaiFENesin-DM] 10 ml PO TID PRN #100 ml PRN Reason: Cough Referrals: Deepa PALOMINO,Tj Bustamante MD [Primary Care Provider] - Follow up with primary Forms: [employer] ([place])
[2017-06-15] MEDS: Albuterol-Ipratrop 3 mg / 0.5 (3 ml) UD IH SCH ×3 (12:15→12:41)
[2017-06-15 12:51] LABS: BASO # 0.04 K/mm3 (0.0-2.0); BASO % 0.6 % (0.0-3.0); EOS % 0.1 % (1.5-5.0); GRAN # 4.42 (1.4-6.5); GRAN % 64.2 % (50.0-68.0); HEMOGLOBIN 13.3 g/dL (12.0-16.0); LYMPH # 1.5 (1.2-3.4); LYMPH % 21.4 % (22.0-35.0); MEAN CELL VOLUME 85.6 fl (80.0-105.0); MEAN CORPUSCULAR HGB CONC 35.1 g/dl (31.0-37.0); MEAN PLATELET VOLUME 9.5 fl (7.0-11.0); MONO # 0.9 (0.1-0.6); MONO % 13.7 % (1.0-6.0); RBC 4.43 10^6/uL (3.5-6.1); RED CELL DISTRIBUTION WIDTH 13.5 % (11.5-14.5); WHITE BLOOD COUNT 6.9 10^3/ul (4.5-11.0)
[2017-06-15 12:52] LABS: URINE APPEARANCE CLEAR (CLEAR); URINE BILIRUBIN NEGATIVE (NEGATIVE); URINE BLOOD TRACE-INTACT (NEGATIVE); URINE COLOR LIGHT YELLOW (YELLOW); URINE GLUCOSE (UA) >=1000 mg/dL (NEGATIVE); URINE LEUKOCYTE ESTERASE NEGATIVE Leu/uL (NEGATIVE); URINE PROTEIN NEGATIVE mg/dL (<30 mg/dL); URINE UROBILINOGEN 0.2 E.U./dL (<1 E.U./dL)
[2017-06-15 13:20] LABS: ALB/GLOB RATIO 1.3 (1.1-1.8); ALBUMIN 3.4 g/dL (3.0-4.8); ALT/SGPT 53 U/L (7-56); AST/SGOT 32 U/L (14-36); BLOOD UREA NITROGEN 14 mg/dL (7-21); CALCIUM 9.2 mg/dL (8.4-10.5); GFR AFRICAN-AMERICAN > 60; GFR NON-AFRICAN AMERICAN > 60
[2017-06-15 13:37] LABS: URINE RBC NEGATIVE /hpf (0-2); URINE WBC NEGATIVE /hpf (0-6)
[2017-06-15 13:52] VITALS: O2SAT 98
--- NOTE | 2017-06-15 13:56 | RAD ---
HISTORY: sob/cough COMPARISON: No prior. TECHNIQUE: Chest PA and lateral FINDINGS: LUNGS: No active pulmonary disease. PLEURA: No significant pleural effusion identified. No pneumothorax apparent. CARDIOVASCULAR: Normal. OSSEOUS STRUCTURES: No significant abnormalities. VISUALIZED UPPER ABDOMEN: Normal. OTHER FINDINGS: None. IMPRESSION: No active disease.
[2017-06-15] MEDS ORDERED: Sodium Chloride 0.9% 1,000 ML IV STA (14:21)
[2017-06-15 15:38] VITALS: BP 126/70; PULSE 75; RESP 17
--- NOTE | 2017-06-16 10:19 | CARD ---
APPROVED REPORT EKG Measurement Heart [id number] <Conclusion> Normal sinus rhythm Left bundle branch block No change
== END 2017-06-15 15:38 | disposition home or self-care (01) ==
LOC: ED 11:33
DX: E86.0 Dehydration (principal); E87.1 Hypo-osmolality and hyponatremia; J40 Bronchitis, not specified as acute or chronic; R05 Cough; E11.65 Type 2 diabetes mellitus with hyperglycemia; I10 Essential (primary) hypertension; I25.10 Atherosclerotic heart disease of native coronary artery without angina pectoris
CPT/HCPCS: 71046; 80053; 81001; 82948; 85025; 87804; 93005; 94640; 96361; 96374; 96375; 99285; J2405; J2930; J7040

== ENCOUNTER 2017-09-26 07:38 | Day surgery (SDC) | payer MEDICARE ==
[2017-09-17 10:51] VITALS: BMI 26.3
[2017-09-26 08:33] VITALS: RESP 18
[2017-09-26] MEDS ORDERED: Lidocaine 2% Inj (20ml) ONE (08:55)
[2017-09-26] MEDS ORDERED: Iodixanol 320 MG/ML 100 ML BOTTLE IV ONE (08:55)
[2017-09-26] MEDS ORDERED: Iodixanol 320 MG/ML 200 ML BOTTLE IV ONE (08:55)
[2017-09-26] MEDS ORDERED: Iohexol 350mgl/ml 50 ML ONE (08:55)
[2017-09-26] MEDS ORDERED: Midazolam 2 MG/2 ML VIAL ONE ×2 (09:58→10:11)
[2017-09-26] MEDS ORDERED: Sodium Chloride 0.45% 1,000 ML IV SCH (10:45)
[2017-09-26 10:48] VITALS: TEMP 98
[2017-09-26] MEDS ORDERED: Oxycodone/Acetaminophen 5/325 mg Tab PO STA (12:55)
[2017-09-26] MEDS ORDERED: Oxycodone/Acetaminophen 5/325 mg Tab ONE (12:59)
[2017-09-26] MEDS ORDERED: Oxycodone/Acetaminophen 5/325 mg Tab PO ONE (13:02)
[2017-09-26 13:24] VITALS: BP 139/48; PULSE 60; O2SAT 94
--- NOTE | 2017-09-26 13:28 | CARDCATH ---
PROCEDURE DATE: 09/26/2017 PROCEDURES: 1. Selective left and right coronary angiography. 2. Left ventriculography. 3. Right femoral arteriography. 4. Angio-Seal deployment. HISTORY: This is a 67-year-old woman with known coronary artery disease, recent exertional dyspnea, chest pain and an abnormal stress test showing a larger anteroseptal ischemic defect. Cardiac catheterization was advised. INDICATIONS: As above. FINDINGS: HEMODYNAMICS: Aortic pressure was 170/76 with left ventricular pressure of 170/15. CORONARY ANATOMY: 1. The left mainstem was small and normal. 2. The left anterior descending artery was a small vessel and had diffuse disease throughout its course. In the mid portion of the vessel, there was a focal 70% stenosis with multiple 50-60% lesions noted throughout the vessel. The vessel appeared to be less than a 2 mm in caliber and not amenable to coronary intervention. 3. The left circumflex artery gave rise to two obtuse marginal branches, which were also fairly small. In the midportion of the left circumflex artery, there was a 60% stenosis as well as evidence of [id number] diffuse distal disease. 4. The right coronary artery was fairly large and dominant. The previously placed stents in the proximal mid segment of the vessel had no evidence of significant re-stenosis. The PDA and PLB branches had evidence of mild diffuse disease. LEFT VENTRICULOGRAPHY: A hand injection was performed in the left ventricle revealing normal wall motion with an ejection fraction of 65%. There was no aortic valve gradient noted on catheter pullback. Mitral regurgitation was not assessed. RIGHT FEMORAL ARTERIOGRAPHY: A right femoral arteriogram was performed in the [place] projection. This revealed no evidence of significant disease in the appropriate level of arterial puncture. The puncture site was then closed with deployment of an Angio-Seal device. CONCLUSIONS: 1. Severe diffuse left anterior descending artery and circumflex disease. 2. Patent right coronary artery stents. 3. Preserved left ventricular function. RECOMMENDATIONS: Given the above findings, intensification of medical therapy is advised. Amlodipine will be added to her regimen of statin, beta-eva, aspirin and Plavix. Smoking abstinence was strongly encouraged. Abhishek Tee MD cc: Tj Arenas MD [facility] # [id number] [place]
== END 2017-09-26 14:10 | disposition home or self-care (01) ==
LOC: CATH 07:38
PROVIDERS: ATTEND Internal Medicine Cardiovascular Disease
DX: I25.10 Atherosclerotic heart disease of native coronary artery without angina pectoris (principal); R06.09 Other forms of dyspnea; I10 Essential (primary) hypertension; Z95.5 Presence of coronary angioplasty implant and graft
CPT/HCPCS: 36415; 82948; 86850; 86900; 93458; 99152; 99153; C1760; C1769; C2629; J1644 ×2; J2250; J3010; J7030 ×2; Q9966; Q9967 ×2

== ENCOUNTER 2018-03-28 15:27 | Emergency (ER) | payer MEDICARE ==
[2018-03-28 15:27] VITALS: BMI 26.3
[2018-03-28 16:32] VITALS: PULSE 71; RESP 18
--- NOTE | 2018-03-28 18:18 | ED PDOC ---
Arrival/HPI - General Chief Complaint: Trauma Time Seen by Provider: 03/28/18 16:14 Historian: Patient - History of Present Illness Narrative History of Present Illness (Text): 03/28/18 18:10 68yo female with pmhx of COPD, HTN, DM, Hyperlipdemia, anxiety who present to ED with complaint of left upper arm pain and b/l rib pain s/p trauma at 0400am this morning. States she had a mechanical fall and while trying to grab a door valdez she fell and injured her arm and ribs. States she came to ED this evening for the persistent pain. Reports pain is with movement and deep inspiration. She did not take any analgesic for the pain. She denies hitting her head anywhere. Denies headache, focal weakness, back pain, nausea, vomiting, chest pain, SOB, any other complaint. Past Medical History - Provider Review Nursing Documentation Reviewed: Yes - Past History Past History: No Previous - Infectious Disease Hx of Infectious Diseases: None - Tetanus Immunization Tetanus Immunization: Unknown - Reproductive Menopause: Yes - Cardiac Hx Pacemaker: No Other/Comment: cardiac stent - Pulmonary Hx Chronic Obstructive Pulmonary Disease (COPD): Yes - Neurological Hx Paralysis: No - HEENT Hx HEENT Disorder: No - Renal Hx Renal Disorder: No - Endocrine/Metabolic Hx Diabetes Mellitus Type 2: Yes - Hematological/Oncological Hx Blood Transfusions: No - Integumentary Hx Dermatological Disorder: Yes Hx Psoriasis: Yes - Musculoskeletal/Rheumatological Hx Musculoskeletal Disorders: Yes (LUMBAR RADICULOPATHY,L ULNAR NERVE ENTRAPMENT ,DECOMPRESSION) - Gastrointestinal Hx Gastrointestinal Disorders: Yes Hx Gastroesophageal Reflux: Yes - Genitourinary/Gynecological Hx Genitourinary Disorders: Yes (1 1 MISCARRIAGE) Other/Comment: OOPHORECTOMY - Psychiatric Hx Panic Disorder: Yes Hx Substance Use: No - Surgical History Hx Cardiac Catheterization: Yes (2008) Hx Coronary Stent: Yes (X2) Other/Comment: trigger finger and ulna sx - Anesthesia Hx Anesthesia Reactions: No Hx Malignant Hyperthermia: No - Suicidal Assessment Feels Threatened In Home Enviroment: No Family/Social History - Physician Review Nursing Documentation Reviewed: Yes Family/Social History: Unknown Family HX Smoking Status: Current Some Days Smoker Hx Alcohol Use: No Hx Substance Use: No Hx Substance Use Treatment: No Allergies/Home Meds Allergies/Adverse Reactions: Allergies bacitracin Allergy (Verified 06/15/17 11:47) SWELLING latex Allergy (Verified 06/15/17 11:47) RASH Penicillins Allergy (Verified 06/15/17 11:47) ANAPHYLAXIS Home Medications: Home Meds Medication Instructions Recorded Confirmed Atorvastatin Calcium [Lipitor] 40 mg PO DAILY 04/18/12 09/26/17 QUEtiapine [Seroquel] 50 mg PO DAILY 10/31/13 09/26/17 Alprazolam [Xanax] 1 mg PO QID 10/24/14 09/26/17 Aspirin [Ecotrin] 325 mg PO DAILY 12/26/14 09/26/17 Esomeprazole Magnesium [Nexium] 40 mg PO DAILY 09/19/15 09/26/17 Metoprolol Succinate XL [Toprol XL] 100 mg PO DAILY 01/06/16 09/26/17 Albuterol Sulfate [Proair Hfa] 1 inh INH PRN PRN 07/22/16 09/26/17 Insulin Lispro [humALOG] 5 units SC PRN PRN 07/22/16 09/26/17 Mometasone 0.1% [Elocon Cream] 1 appful TOP PRN PRN 07/22/16 09/26/17 Desvenlafaxine Succinate [Pristiq] 50 mg PO DAILY 09/17/17 09/26/17 Fluticasone Furoate [Arnuity 1 puff INH DAILY 09/17/17 09/26/17 Ellipta] Insulin Glargine, Recombina 15 units SC HS 09/17/17 09/26/17 [Lantus] Umeclidinium Brm/Vilanterol Tr 1 puff INH DAILY 09/17/17 09/26/17 [Anoro Ellipta 62.5-25 Mcg INH] amLODIPine [Norvasc] 5 mg PO DAILY 09/26/17 09/26/17 Review of Systems - Physician Review All systems were reviewed & negative as marked: Yes - Review of Systems Constitutional: Normal Eyes: Normal ENT: Normal Respiratory: Normal Cardiovascular: Normal Gastrointestinal: Normal Genitourinary Female: Normal Musculoskeletal: Arthralgias (Left upper arm and b/l ribs) Skin: Normal Neurological: Normal Endocrine: Normal Hemo/Lymphatic: Normal Psychiatric: Normal Physical Exam Vital Signs Reviewed: Yes Vital Signs Temp Pulse Resp BP Pulse Ox 03/28/18 16:28 98.4 F 71 18 131/46 L 96 Temperature: Afebrile Blood Pressure: Normal Pulse: Regular Respiratory Rate: Normal Appearance: Positive for: Well-Appearing, Non-Toxic, Comfortable Pain Distress: None Mental Status: Positive for: Alert and Oriented X 3 - Systems Exam Head: Present: Atraumatic, Normocephalic Pupils: Present: PERRL Extroacular Muscles: Present: EOMI Conjunctiva: Present: Normal Mouth: Present: Moist Mucous Membranes Neck: Present: Normal Range of Motion Respiratory/Chest: Present: Clear to Auscultation, Good Air Exchange, Tender to Palpation (B/L anterior ribs). No: Respiratory Distress, Accessory Muscle Use, Wheezes, Decreased Breath Sounds, Rales, Retracting, Rhonchi Cardiovascular: Present: Regular Rate and Rhythm, Normal S1, S2. No: Murmurs Abdomen: No: Tenderness, Distention, Peritoneal Signs Back: Present: Normal Inspection Upper Extremity: Present: Normal ROM, NORMAL PULSES, Tenderness (Proximal upper arm), Neurovascularly Intact. No: Cyanosis, Edema, Swelling, Temperature Abnormalties, Deformity Lower Extremity: Present: Normal Inspection. No: Edema Neurological: Present: GCS=15, CN II-XII Intact, Speech Normal Skin: Present: Warm, Dry, Normal Color. No: Rashes Psychiatric: Present: Alert, Oriented x 3, Normal Insight, Normal Concentration Medical Decision Making ED Course and Treatment: 03/28/18 19:08 PT in ED for b/l ribs pain and left upper am pain s/p trauma this morning. B/L ribs/chest xray Left humerus xray Tramadol B/L ribs IMPRESSION: Unremarkable radiographs of the chest and bilateral ribs. No rib fracture. Left humerus IMPRESSION: Normal radiographs of left humerus. Pt's pain improved in ED with medication in ED Result was DW the pt and she was DC home with Tramadol. Referred to ortho - RAD Interpretation Radiology Orders: 03/28/18 16:33 RIBS BILATERAL W/PA CHEST [RAD] Stat 03/28/18 16:34 HUMERUS LEFT [RAD] Stat - Medication Orders Current Medication Orders: Discontinued Medications Tramadol HCl (Ultram) 50 mg PO STAT STA Stop: 03/28/18 16:35 Last Admin: 03/28/18 17:43 Dose: 50 mg MAR Pain Assessment Document 03/28/18 17:43 OCS (Rec: 03/28/18 17:48 OCS [facility] [id number]) Pain Reassessment Is this a pain reassessment? No Sleep Is patient sleeping during reassessment? No Presence of Pain Presence of Pain Yes Pain Scale Used Protocol: PSCALES Pain Scale Used Numeric Location Pain Location Body Site Back Description Description Constant Intensity of Pain at present 10 Pain Behavior Facial Grimacing Aggravating Factors ADL's Disposition/Present on Arrival - Present on Arrival Any Indicators Present on Arrival: No History of DVT/PE: No History of Uncontrolled Diabetes: Yes Urinary Catheter: No History of Decub. Ulcer: No History Surgical Site Infection Following: None - Disposition Have Diagnosis and Disposition been Completed?: Yes Diagnosis: Rib sprain, Arm pain Disposition: HOME/ ROUTINE Disposition Time: 19:00 Patient Plan: Discharge Patient Problems: Current Active Problems Problem Status Onset Arm pain Acute Rib sprain Acute Condition: STABLE Discharge Instructions (ExitCare): Muscle Strain, Shoulder Sprain (DC) Additional Instructions: Follow up with your Doctor/orthopedist Return to ED for any new or worsening symptoms Prescriptions: traMADol [Ultram] 50 mg PO Q6 #10 tab Referrals: Saleem Owen DO [Staff Provider] - Follow up with primary Forms: [employer] ([place])
--- NOTE | 2018-03-28 18:51 | RAD ---
Date of service: 03/28/2018 PROCEDURE: Radiographs of the chest and bilateral ribs HISTORY: Posttraumatic rib pain COMPARISON: 06/15/2017 two-view chest TECHNIQUE: Frontal radiograph of the chest and multiple oblique radiographs of the bilateral ribs were obtained. FINDINGS: RIGHT RIBS: No fracture or focal lesion visualized. LEFT RIBS: No fracture or focal lesion visualized. LUNGS: Clear. PLEURA: No pneumothorax or pleural fluid. CARDIOVASCULAR: Normal cardiac size. No pulmonary vascular congestion. Atherosclerotic calcifications identified primarily aortic arch. OTHER FINDINGS: None. IMPRESSION: Unremarkable radiographs of the chest and bilateral ribs. No rib fracture.
--- NOTE | 2018-03-28 18:52 | RAD ---
PROCEDURE: Radiographs of the left humerus. HISTORY: arm pain s/p trauma COMPARISON: None. FINDINGS: BONES: Normal. No fracture or focal lesion. SOFT TISSUES: Normal. OTHER FINDINGS: None. IMPRESSION: Normal radiographs of left humerus.
[2018-03-28 19:19] VITALS: BP 114/69; TEMP 98; O2SAT 100
== END 2018-03-28 19:10 | disposition home or self-care (01) ==
LOC: ED 15:27
DX: M79.622 Pain in left upper arm (principal); S23.41XA Sprain of ribs, initial encounter; E11.9 Type 2 diabetes mellitus without complications; I10 Essential (primary) hypertension; J44.9 Chronic obstructive pulmonary disease, unspecified; E78.5 Hyperlipidemia, unspecified

== ENCOUNTER 2018-04-25 09:57 | Outpatient (CLI) | payer MEDICARE | END 2018-04-25 09:58 | disposition home or self-care (01) | LOC: RAD 09:57 ==

== ENCOUNTER 2018-05-07 10:22 | Outpatient (CLI) | payer MEDICARE | END 2018-05-07 10:23 | disposition home or self-care (01) | LOC: RAD 10:22 ==

== ENCOUNTER 2018-05-20 11:42 | Outpatient (CLI) | payer MEDICARE | END 2018-05-20 11:43 | disposition home or self-care (01) | LOC: RAD 11:42 ==

== ENCOUNTER 2018-06-25 02:03 | Inpatient (IN) | payer MEDICARE, OTHER ==
[2018-06-25 02:03] VITALS: BMI 26.3
[2018-06-25] MEDS ORDERED: Albuterol-Ipratrop 3 mg / 0.5 (3 ml) UD IH STA ×3 (02:15→03:24)
[2018-06-25 02:48] LABS: HEMOGLOBIN 10.7 g/dL (12.0-16.0); MEAN CELL VOLUME 85.3 fl (80.0-105.0); MEAN CORPUSCULAR HEMOGLOBIN 27.5 pg (25.0-35.0); MEAN CORPUSCULAR HGB CONC 32.2 g/dl (31.0-37.0); MEAN PLATELET VOLUME 9.5 fl (7.0-11.0); RBC 3.89 10^6/uL (3.5-6.1); RED CELL DISTRIBUTION WIDTH 14.3 % (11.5-14.5); WHITE BLOOD COUNT 8.5 10^3/uL (4.5-11.0)
[2018-06-25 02:50] LABS: INR 1.08; PARTIAL THROMBOPLASTIN TIME 35.4 Seconds (26.9-38.3)
[2018-06-25 02:54] LABS: ALB/GLOB RATIO 1.2 (1.1-1.8); ALBUMIN 3.3 g/dL (3.0-4.8); ALT/SGPT 24 U/L (7-56); AST/SGOT 25 U/L (14-36); BLOOD UREA NITROGEN 12 mg/dL (7-21); CALCIUM 8.8 mg/dL (8.4-10.5); GFR NON-AFRICAN AMERICAN > 60
--- NOTE | 2018-06-25 03:00 | ED PDOC ---
Arrival/HPI - General Chief Complaint: Shortness Of Breath Time Seen by Provider: 06/25/18 02:05 Historian: Patient - History of Present Illness Narrative History of Present Illness (Text): 06/25/18 02:57 68 year old female, whose past medical history includes COPD and CAD with stents, presents to the emergency department complaining of shortness of breath for 3 days. Patient states she has seen her PMD who had placed her on Levaquin and a cough expectorant. Patient states she has not had any relief. Patient states she has difficulty sleeping at night because of her breathing. Patient is a smoker bust states she has not been smoking during this period. Patient denies any fever, chest pain, abdominal pain, nausea, vomiting, or any other complaints. Time/Duration: < week (3 days) Symptom Onset: Gradual Symptom Course: Unchanged Activities at Onset: Light Context: Home Past Medical History - Provider Review Nursing Documentation Reviewed: Yes - Past History Past History: No Previous - Infectious Disease Hx of Infectious Diseases: None - Tetanus Immunization Tetanus Immunization: Unknown - Cardiac Hx Pacemaker: No Other/Comment: cardiac stent - Pulmonary Hx Chronic Obstructive Pulmonary Disease (COPD): Yes - Neurological Hx Paralysis: No - HEENT Hx HEENT Disorder: No - Renal Hx Renal Disorder: No - Endocrine/Metabolic Hx Diabetes Mellitus Type 2: Yes - Hematological/Oncological Hx Blood Transfusions: No - Integumentary Hx Dermatological Disorder: Yes Hx Psoriasis: Yes - Musculoskeletal/Rheumatological Hx Musculoskeletal Disorders: Yes (LUMBAR RADICULOPATHY,L ULNAR NERVE ENTRAPMENT ,DECOMPRESSION) - Gastrointestinal Hx Gastrointestinal Disorders: Yes Hx Gastroesophageal Reflux: Yes - Genitourinary/Gynecological Hx Genitourinary Disorders: Yes (1 1 MISCARRIAGE) Other/Comment: OOPHORECTOMY - Psychiatric Hx Panic Disorder: Yes Hx Substance Use: No - Surgical History Hx Cardiac Catheterization: Yes (2008) Hx Coronary Stent: Yes (X2) Other/Comment: trigger finger and ulna sx - Anesthesia Hx Anesthesia Reactions: No Hx Malignant Hyperthermia: No - Suicidal Assessment Feels Threatened In Home Enviroment: No Family/Social History - Physician Review Nursing Documentation Reviewed: Yes Family/Social History: No Known Family HX Smoking Status: Current Some Days Smoker Hx Alcohol Use: No Hx Substance Use: No Hx Substance Use Treatment: No Allergies/Home Meds Allergies/Adverse Reactions: Allergies bacitracin Allergy (Verified 06/25/18 02:06) SWELLING latex Allergy (Verified 06/25/18 02:06) RASH Penicillins Allergy (Verified 06/25/18 02:06) ANAPHYLAXIS Home Medications: Home Meds Medication Instructions Recorded Confirmed Atorvastatin Calcium [Lipitor] 40 mg PO DAILY 04/18/12 06/25/18 QUEtiapine [Seroquel] 50 mg PO HS 10/31/13 06/25/18 Alprazolam [Xanax] 1 mg PO QID 10/24/14 06/25/18 Aspirin [Ecotrin] 325 mg PO DAILY 12/26/14 06/25/18 Esomeprazole Magnesium [Nexium] 40 mg PO DAILY 09/19/15 06/25/18 Metoprolol Succinate XL [Toprol XL] 50 mg PO DAILY 01/06/16 06/25/18 Albuterol Sulfate [Proair Hfa] 1 inh INH PRN PRN 07/22/16 06/25/18 Insulin Lispro [humALOG] 5 units SC AC 07/22/16 06/25/18 Desvenlafaxine Succinate [Pristiq] 50 mg PO DAILY 09/17/17 06/25/18 Fluticasone Furoate [Arnuity 1 puff INH DAILY 09/17/17 06/25/18 Ellipta] Insulin Glargine, Recombina 15 units SC HS 09/17/17 06/25/18 [Lantus] Umeclidinium Brm/Vilanterol Tr 1 puff INH DAILY 09/17/17 06/25/18 [Anoro Ellipta 62.5-25 Mcg INH] amLODIPine [Norvasc] 5 mg PO DAILY 09/26/17 06/25/18 Review of Systems - Physician Review All systems were reviewed & negative as marked: Yes - Review of Systems Constitutional: absent: Fevers Respiratory: SOB Cardiovascular: absent: Chest Pain Gastrointestinal: absent: Abdominal Pain, Nausea, Vomiting Physical Exam Vital Signs Reviewed: Yes Vital Signs Temp Pulse Resp BP Pulse Ox 06/25/18 02:40 99 06/25/18 02:17 28 H 94 L 06/25/18 02:11 94 L 06/25/18 02:03 98.4 F 86 28 H 108/60 85 L Temperature: Afebrile Blood Pressure: Normal Pulse: Regular Respiratory Rate: Tachypneic Appearance: Positive for: Well-Appearing, Non-Toxic, Comfortable Pain Distress: None Mental Status: Positive for: Alert and Oriented X 3 - Systems Exam Head: Present: Atraumatic, Normocephalic Pupils: Present: PERRL Extroacular Muscles: Present: EOMI Conjunctiva: Present: Normal Mouth: Present: Moist Mucous Membranes Neck: Present: Normal Range of Motion Respiratory/Chest: Present: Wheezes, Decreased Breath Sounds Cardiovascular: Present: Regular Rate and Rhythm, Normal S1, S2. No: Murmurs Abdomen: No: Tenderness, Distention, Peritoneal Signs Back: Present: Normal Inspection Upper Extremity: Present: Normal Inspection. No: Cyanosis, Edema Lower Extremity: Present: Normal Inspection. No: Edema Neurological: Present: GCS=15, CN II-XII Intact, Speech Normal Skin: Present: Warm, Dry, Normal Color. No: Rashes Psychiatric: Present: Alert, Oriented x 3, Normal Insight, Normal Concentration Medical Decision Making ED Course and Treatment: 06/25/18 03:03 Impression: 68 year old female presents with shortness of breath/ COPD exacerbation. Plan: -- EKG -- Cardiac Iso, CK, CMP, BNP -- Chest X-ray -- Duoneb -- Solumedrol -- Reassess and disposition Prior Visits: Notes and results from previous visits were reviewed. Progress Notes: EKG Reviewed by me, shows: Normal sinus rhythm @ 80bpm LBBB Nonspecific STT wave changes Unchanged from previous on 06/15/17 06/25/18 03:59 Chest, single view. Indication: Shortness of breath. Comparison: 06/15/2017. Findings: There is interval appearance of bilateral lower lobes airspace infiltrates. The lungs are expanded. There is no demonstrated parenchymal abnormality. There is no demonstrated pleural abnormality. Normal heart and pericardium. Normal mediastinum and dino. Normal visualized pulmonary arteries. Normal visualized aortic arch and descending thoracic aorta. Normal visualized thoracic spine. Normal visualized ribs, clavicles, and shoulders. There is no demonstrated abnormality of the visualized soft tissue structures of the upper abdomen. Impression: Interval appearance of bilateral lower lobes airspace infiltrates. 06/25/18 04:[address] Tj Arenas who accepts patient to his service. - Lab Interpretations Lab Results: PT 12.0 SECONDS (9.4-12.5) 06/25/18 02:26 INR 1.08 06/25/18 02:26 APTT 35.4 Seconds (26.9-38.3) 06/25/18 02:26 Total Bilirubin 0.2 mg/dL (0.2-1.3) 06/25/18 02:26 AST 25 U/L (14-36) 06/25/18 02:26 ALT 24 U/L (7-56) 06/25/18 02:26 Alkaline Phosphatase 160 U/L (38-126) H D 06/25/18 02:26 Total Protein 6.2 g/dL (5.8-8.3) 06/25/18 02:26 Albumin 3.3 g/dL (3.0-4.8) 06/25/18 02:26 Globulin 2.9 gm/dL 06/25/18 02:26 Albumin/Globulin Ratio 1.2 (1.1-1.8) 06/25/18 02:26 - RAD Interpretation Radiology Orders: 06/25/18 02:15 CHEST PORTABLE [RAD] Stat - Medication Orders Current Medication Orders: Discontinued Medications Albuterol/Ipratropium (Duoneb 3 Mg/0.5 Mg (3 Ml) Ud) 3 ml IH ONCE STA Stop: 06/25/18 02:16 Last Admin: 06/25/18 02:30 Dose: 3 ml Methylprednisolone (Solu-Medrol) 125 mg IVP ONCE ONE Stop: 06/25/18 02:16 Last Admin: 06/25/18 02:30 Dose: 125 mg IVP Administration Document 06/25/18 02:30 KV (Rec: 06/25/18 02:36 KV [id number]) Charges for Administration # of IVP Administrations 1 - Scribe Statement The provider has reviewed the documentation as recorded by the Zaraibkenny Gonzalez Provider Scribe Attestation: All medical record entries made by the Scribe were at my direction and personally dictated by me. I have reviewed the chart and agree that the record accurately reflects my personal performance of the history, physical exam, medical decision making, and the department course for this patient. I have also personally directed, reviewed, and agree with the discharge instructions and disposition. Disposition/Present on Arrival - Present on Arrival Any Indicators Present on Arrival: No History of DVT/PE: No History of Uncontrolled Diabetes: Yes Urinary Catheter: No History of Decub. Ulcer: No History Surgical Site Infection Following: None - Disposition Have Diagnosis and Disposition been Completed?: Yes Diagnosis: COPD exacerbation, Cor pulmonale, Pneumonia Disposition: HOSPITALIZED Disposition Time: 04:29 Patient Plan: Observation Patient Problems: Current Active Problems Problem Status Onset COPD exacerbation Acute Cor pulmonale Acute Pneumonia Acute Condition: STABLE
[2018-06-25 03:06] LABS: B-TYPE NATRIURETIC PEPTIDE 1320 pg/mL (0-450); TROPONIN I < 0.01 ng/mL
[2018-06-25 03:35] LABS: CK-MB 1.9 ng/mL (0.0-3.6)
[2018-06-25] MEDS ORDERED: Aztreonam 1 Gm in NS 100mL 100 ML IVPB STA (04:29)
[2018-06-25] MEDS ORDERED: Azithromycin 500MG/NS 250ml 500 MG/250 ML BAG IV STA (04:30)
[2018-06-25] MEDS ORDERED: Albuterol-Ipratrop 3 mg / 0.5 (3 ml) UD IH PRN ×2 (04:34→06:22)
--- NOTE | 2018-06-25 07:59 | RAD ---
Date of service: 06/25/2018 HISTORY: sob COMPARISON: 03/28/2018 TECHNIQUE: 1 view obtained. FINDINGS: LUNGS: Infiltrate at the right lung base. Prominent interstitial markings. PLEURA: No significant pleural effusion identified, no pneumothorax apparent. CARDIOVASCULAR: Aortic calcification Normal cardiac size. No pulmonary vascular congestion. OSSEOUS STRUCTURES: No significant abnormalities. VISUALIZED UPPER ABDOMEN: Normal. OTHER FINDINGS: None. IMPRESSION: Infiltrate at the right lung base. Prominent interstitial markings.
[2018-06-25] MEDS: Metoprolol Succinate 50 mg XL Tab PO SCH (08:00)
[2018-06-25] MEDS: Insulin Lispro (HUMAlog) HIGH Coverage SC SCH ×4 (08:00→21:26)
[2018-06-25] MEDS: Albuterol-Ipratrop 3 mg / 0.5 (3 ml) UD IH SCH ×4 (08:02→20:13)
[2018-06-25] MEDS: levoFLOXacin 500 mg in D5W 500 MG/100 ML BAG IVPB SCH (09:55)
--- NOTE | 2018-06-25 09:55 | HP ---
HISTORY OF PRESENT ILLNESS: The patient is a 68-year-old woman with a past medical history of severe COPD with active smoking who presented for evaluation of a 5 day history of chest tightness, dyspnea, wheeze and cough productive of green sputum. She was initially seen in her PMD's office 2 days prior with the aforementioned symptoms. She was diagnosed with COPD exacerbation and started on Levaquin and Prednisone. Two days later she called her PMD because her symptoms had not improved. She was advised to continue her current treatment and that if she had no improvement over the following 24 hours to return for reevaluation or present to the nearest ED. Over the following 24 hours she demonstrated no improvement and thus opted for ED evaluation. In the ED she was afebrile and hemodynamically stable however in moderate respiratory distress. She received multiple rounds of bronchodilator treatments without resolution of her wheeze and as such was admitted for continued management. PAST MEDICAL HISTORY: As per HPI, also CAD s/p PCI with stent placement, hypertension, hyperlipidemia, insulin-dependent diabetes mellitus, anxiety disorder and sciatica. PAST SURGICAL HISTORY: Surgical repair of trigger finger. ALLERGIES: Bacitracin, Penicillin and Latex. MEDICATIONS: Aspirin 325 mg p.o. daily, Lipitor 40 mg p.o. daily, Norvasc 5 mg p.o. daily, Gabapentin 300 mg p.o. t.i.d., Seroquel 50 mg p.o. qhs, Protonix 40 mg p.o. daily, Toprol XL 50 mg p.o. daily, Humalog 10 units SC t.i.d. with meals, Levemir 8 units SC at bedtime, Xanax 1 mg p.o. q. 6 hours p.r.n. anxiety, Dulera 200 mcg 2 puffs b.i.d. and ProAir HFA 2 puffs q. 4-6 hours p.r.n. dyspnea/wheeze. FAMILY HISTORY: Significant for hypertension and diabetes. SOCIAL HISTORY: The patient reports an active [id number] smoking history and social alcohol use. She denies illicit drug abuse. REVIEW OF SYSTEMS: A 12-point review of systems is negative except as per HPI. PHYSICAL EXAMINATION: VITAL SIGNS: Temperature 98.6, pulse 89, blood pressure 130/70, respiratory rate 20, oxygen saturation 91% on 3L NC. GENERAL: No apparent distress. HEENT: PERRL, EOMI. No scleral icterus. No conjunctival pallor. NECK: No JVD. LUNGS: Decreased breath sounds at the bases with bibasilar crackles and faint expiratory wheeze. CARDIOVASCULAR: Regular rate and rhythm. Normal S1, S2. ABDOMEN: Normoactive bowel sounds, soft, nontender and nondistended. EXTREMITIES: Trace pedal edema. NEUROLOGIC: Awake, alert and oriented x 3. No focal motor deficits. LABORATORY DATA: WBC 8.5, hemoglobin 11, hematocrit 33, platelets 318. Sodium 132, potassium 4.2, chloride 99, bicarb 28, BUN 12, creatinine 0.7, glucose 267. Influenza serology negative. IMAGING STUDIES: 1. Chest x-ray demonstrates infiltrate to the right lung base with prominent interstitial markings. ASSESSMENT: The patient is a 68-year-old woman with multiple medical comorbidities including severe COPD with active tobacco dependence who presented for evaluation of a 5 day history of chest tightness, wheeze, dyspnea and cough productive of green sputum and was admitted for management of community-acquired pneumonia. PLAN: 1. Community-acquired pneumonia. Continue supplemental oxygen, bronchodilators and steroid taper. Continue Levaquin 500 mg IV daily. Continue to monitor for fever and leukocytosis and await culture reports. 2. Severe COPD. Continue with supplemental oxygen, bronchodilators and steroid taper. 3. Insulin-dependent diabetes mellitus. Resume the patient's home medications and continue to monitor fingersticks at a.c. and at bedtime. 4. CAD s/p PCI with stent placement. Continue Aspirin 325 mg p.o. daily, Lipitor 40 mg p.o. daily and Toprol XL 50 mg p.o. daily. 5. Hypertension. Blood pressure controlled. Continue Toprol XL 50 mg p.o. daily and Norvasc 5 mg p.o. daily. 6. Hyperlipidemia. Continue Lipitor 40 mg p.o. daily. 7. Anxiety disorder. Continue Xanax 1 mg p.o. q. 6 hours p.r.n anxiety. 8. Sciatica. Continue Gabapentin 300 mg p.o. t.i.d. 9. Prophylaxis. Continue Protonix for GI prophylaxis. DVT prophylaxis not indicated as the patient is ambulatory. CODE STATUS: Full code. Tj Arenas MD [facility] # [id number] [place]
[2018-06-25] MEDS: MethylPREDNISolone 40 mg Vial IVP SCH ×2 (09:58→21:28)
[2018-06-25] MEDS: Aspirin 325 mg EC Tablets PO SCH (09:58)
[2018-06-25] MEDS ORDERED: Insulin Detemir 100 units/ml Vial (Levemir) SC SCH ×2 (10:00→22:00)
[2018-06-25] MEDS ORDERED: Insulin Lispro 1 UNITS/0.01 ML SC ONE (11:57)
[2018-06-25] MEDS: guaiFENesin-Codeine 100-10mg/5ml Syrup (5 ml) UD PO PRN ×2 (12:28→17:18)
--- NOTE | 2018-06-25 12:30 | CARD ---
APPROVED REPORT Date of service: 06/25/2018 EKG Measurement Heart [id number] <Conclusion> Normal sinus rhythm Left bundle branch block Abnormal ECG
[2018-06-25] MEDS ORDERED: Menthol/Phenol (Cepastat) Lozenge MT PRN ×2 (13:00→13:19)
[2018-06-25] MEDS: Arformoterol 15 mcg/2 ml Inh Sol IH SCH (20:12)
[2018-06-25] MEDS: Budesonide 0.5 mg/2 ml Inhal Susp UD IH SCH (20:12)
[2018-06-25] MEDS: Insulin Detemir 100 units/ml Vial (Levemir) SC SCH (21:27)
[2018-06-26] MEDS: Albuterol-Ipratrop 3 mg / 0.5 (3 ml) UD IH SCH ×7 (00:48→23:14)
[2018-06-26] MEDS: Pantoprazole 40 mg EC Tab PO SCH (05:55)
[2018-06-26 06:27] LABS: BASO # 0.01 K/mm3 (0.0-2.0); BASO % 0.1 % (0.0-3.0); HEMOGLOBIN 10.5 g/dL (12.0-16.0); LYMPH # 0.9 (1.2-3.4); LYMPH % 8.8 % (22.0-35.0); MEAN CORPUSCULAR HEMOGLOBIN 27.6 pg (25.0-35.0); MEAN CORPUSCULAR HGB CONC 32.4 g/dl (31.0-37.0); MEAN PLATELET VOLUME 9.6 fl (7.0-11.0); MONO # 0.5 (0.1-0.6); MONO % 4.3 % (1.0-6.0); RBC 3.81 10^6/uL (3.5-6.1); RED CELL DISTRIBUTION WIDTH 14.5 % (11.5-14.5); WHITE BLOOD COUNT 10.4 10^3/uL (4.5-11.0)
[2018-06-26] MEDS: guaiFENesin-Codeine 100-10mg/5ml Syrup (5 ml) UD PO PRN ×3 (06:59→20:32)
[2018-06-26 07:25] LABS: ALBUMIN 3.3 g/dL (3.0-4.8); ALT/SGPT 23 U/L (7-56); AST/SGOT 43 U/L (14-36); BLOOD UREA NITROGEN 17 mg/dL (7-21); CALCIUM 9.2 mg/dL (8.4-10.5); GFR NON-AFRICAN AMERICAN > 60
[2018-06-26] MEDS: Arformoterol 15 mcg/2 ml Inh Sol IH SCH ×2 (07:34→19:12)
[2018-06-26] MEDS: Budesonide 0.5 mg/2 ml Inhal Susp UD IH SCH ×2 (07:34→19:12)
[2018-06-26] MEDS: Insulin Lispro (HUMAlog) HIGH Coverage SC SCH ×4 (07:57→22:06)
[2018-06-26] MEDS: Aspirin 325 mg EC Tablets PO SCH (09:39)
[2018-06-26] MEDS: MethylPREDNISolone 40 mg Vial IVP SCH ×2 (09:40→22:07)
[2018-06-26] MEDS: Metoprolol Succinate 50 mg XL Tab PO SCH (09:40)
[2018-06-26] MEDS: levoFLOXacin 500 mg in D5W 500 MG/100 ML BAG IVPB SCH (09:41)
[2018-06-26] MEDS: Insulin Detemir 100 units/ml Vial (Levemir) SC SCH ×2 (09:42→22:08)
--- NOTE | 2018-06-26 10:17 | PN ---
SUBJECTIVE: The patient was seen and examined at bedside on the telemetry limon. No acute events overnight. She remains afebrile and hemodynamically stable. This morning she reports some improvement in her respiratory status and feels slightly improved since admission and otherwise offers no complaints. OBJECTIVE: VITAL SIGNS: Temperature 98, pulse 89, blood pressure 136/62, respiratory rate 20, oxygen saturation 94% on 2L NC. GENERAL: No apparent distress. HEENT: PERRL, EOMI. No scleral icterus. No conjunctival pallor. NECK: No JVD. LUNGS: Decreased breath sounds at the bases with faint expiratory wheeze. CARDIOVASCULAR: Regular rate and rhythm. Normal S1, S2. ABDOMEN: Normoactive bowel sounds, soft, nontender, nondistended. EXTREMITIES: Trace pedal edema. NEUROLOGIC: Awake, alert and oriented x 3. No focal motor deficits. LABORATORY DATA: WBC 10.4 with 87% neutrophils, hemoglobin 10.5, hematocrit 32, platelets 346. Sodium 134, potassium 4, chloride 97, bicarb 29, BUN 17, creatinine 0.6, glucose 357. ASSESSMENT: The patient is a 68-year-old woman with multiple medical comorbidities including severe COPD with active tobacco dependence who presented for evaluation of a 5 day history of chest tightness, wheeze, dyspnea and cough productive of green sputum and was admitted for management of community-acquired pneumonia. PLAN: 1. Community-acquired pneumonia, improving. Continue supplemental oxygen, bronchodilators and steroid taper. Continue Levaquin 500 mg IV daily. Continue to monitor for fever and leukocytosis and await culture reports. 2. Severe COPD. Continue with supplemental oxygen, bronchodilators and steroid taper. 3. Insulin-dependent diabetes mellitus. Continue with current regimen. Fingersticks remain elevated secondary to IV steroids and we will adjust insulin as needed. 4. CAD s/p PCI with stent placement. Continue Aspirin 325 mg p.o. daily, Lipitor 40 mg p.o. daily and Toprol XL 50 mg p.o. daily. 5. Hypertension. Continue Toprol XL 50 mg p.o. daily and Norvasc 5 mg p.o. daily. 6. Hyperlipidemia. Continue Lipitor 40 mg p.o. daily. 7. Anxiety disorder. Continue Xanax 1 mg p.o. q. 6 hours p.r.n. anxiety. 8. Sciatica. Continue Gabapentin 300 mg p.o. t.i.d. 9. Prophylaxis. Continue Protonix for GI prophylaxis. DVT prophylaxis not indicated as the patient is ambulatory. CODE STATUS: Full code. Tj Arenas MD [facility]
[2018-06-27] MEDS: Albuterol-Ipratrop 3 mg / 0.5 (3 ml) UD IH SCH ×6 (05:07→23:58)
[2018-06-27] MEDS: Pantoprazole 40 mg EC Tab PO SCH (05:53)
[2018-06-27] MEDS: guaiFENesin-Codeine 100-10mg/5ml Syrup (5 ml) UD PO PRN ×3 (05:54→19:28)
[2018-06-27 06:52] LABS: HEMOGLOBIN 10.6 g/dL (12.0-16.0); LYMPH # 0.6 (1.2-3.4); LYMPH % 4.5 % (22.0-35.0); MEAN CORPUSCULAR HEMOGLOBIN 27.3 pg (25.0-35.0); MEAN CORPUSCULAR HGB CONC 34.1 g/dl (31.0-37.0); MEAN PLATELET VOLUME 9.1 fl (7.0-11.0); MONO # 0.4 (0.1-0.6); MONO % 2.9 % (1.0-6.0); PLATELET COUNT 341 10^3/uL (120.0-450.0); RBC 3.88 10^6/uL (3.5-6.1); RED CELL DISTRIBUTION WIDTH 14.8 % (11.5-14.5); WHITE BLOOD COUNT 12.2 10^3/uL (4.5-11.0)
[2018-06-27] MEDS: Arformoterol 15 mcg/2 ml Inh Sol IH SCH ×2 (07:33→19:35)
[2018-06-27] MEDS: Budesonide 0.5 mg/2 ml Inhal Susp UD IH SCH ×2 (07:34→19:36)
[2018-06-27 07:53] LABS: ALB/GLOB RATIO 1.1 (1.1-1.8); ALBUMIN 3.3 g/dL (3.0-4.8); ALT/SGPT 27 U/L (7-56); AST/SGOT 43 U/L (14-36); BLOOD UREA NITROGEN 22 mg/dL (7-21); GFR NON-AFRICAN AMERICAN > 60
[2018-06-27] MEDS: Insulin Lispro (HUMAlog) HIGH Coverage SC SCH ×4 (08:01→21:58)
[2018-06-27] MEDS ORDERED: Insulin Lispro 1 UNITS/0.01 ML SC ONE (08:20)
[2018-06-27 08:50] LABS: MEAN CELL VOLUME 85.6 fl (80.0-105.0)
[2018-06-27] MEDS: Aspirin 325 mg EC Tablets PO SCH (09:59)
[2018-06-27] MEDS: levoFLOXacin 500 mg in D5W 500 MG/100 ML BAG IVPB SCH (10:00)
[2018-06-27] MEDS: Insulin Detemir 100 units/ml Vial (Levemir) SC SCH ×2 (10:01→22:00)
[2018-06-27] MEDS: MethylPREDNISolone 40 mg Vial IVP SCH (10:02)
[2018-06-27] MEDS: Metoprolol Succinate 50 mg XL Tab PO SCH (10:03)
--- NOTE | 2018-06-27 10:28 | PN ---
SUBJECTIVE: The patient was seen and examined at bedside on the general medical limon. No acute events overnight. She remains afebrile, hemodynamically stable and with continued improvement in her respiratory status. This morning she feels okay and offers no complaints. OBJECTIVE: VITAL SIGNS: T 97.5, P 79, BP 148/57, RR 20, O2 saturation 98% on 3L NC. GENERAL: No apparent distress. HEENT: PERRL, EOMI. No scleral icterus. No conjunctival pallor. NECK: No JVD. LUNGS: Decreased breath sounds at bases with faint expiratory wheeze. CARDIOVASCULAR: Regular rate and rhythm. Normal S1, S2. ABDOMEN: Normoactive bowel sounds, soft, nontender, nondistended. EXTREMITIES: No edema. NEUROLOGIC: Awake, alert and oriented x 3. No focal motor deficits. LABORATORY DATA: WBC 12.2 with 93% neutrophils, hemoglobin 10.6, hematocrit 31, platelets 341. Sodium 132, potassium 5, chloride 96, bicarb 30, BUN 22, creatinine 0.7, glucose 447. Blood cultures with no growth to date. ASSESSMENT: The patient is a 68-year-old woman with multiple medical comorbidities including severe COPD with active tobacco dependence who presented for evaluation of a 5 day history of chest tightness, wheeze, dyspnea and cough productive of green sputum and was admitted for management of community-acquired pneumonia. PLAN: 1. Community-acquired pneumonia, improving. Continue supplemental oxygen, bronchodilators and steroid taper. Continue Levaquin 500 mg IV daily. Continue to monitor for fever, leukocytosis and await culture reports. 2. Severe COPD. Continue with supplemental oxygen, bronchodilators and steroid taper. 3. Insulin-dependent diabetes mellitus. Fingersticks remain elevated secondary to IV steroids. We will continue adjust her insulin regimen as needed. 4. CAD s/p PCI with stent placement. Continue Aspirin 325 mg p.o. daily, Lipitor 40 mg p.o. daily and Toprol XL 50 mg p.o. daily. 5. Hypertension. Continue Toprol XL 50 mg p.o. daily and Norvasc 5 mg p.o. daily. 6. Hyperlipidemia. Continue Lipitor 40 mg p.o. daily. 7. Anxiety disorder. Continue Xanax 1 mg p.o. q. 6 hours p.r.n. anxiety. 8. Sciatica. Continue Gabapentin 300 mg p.o. t.i.d. 9. Prophylaxis. Continue Protonix for GI prophylaxis. DVT prophylaxis not indicated as the patient is ambulatory. CODE STATUS: Full code. Tj Arenas MD [email or web address]
[2018-06-27 11:23] LABS: ATYPICAL LYMPHOCYTE 1 % (0.0-0.0); LYMPHOCYTE 2 % (22.0-35.0); MONOCYTE 4 % (1.0-6.0); NEUTROPHIL 93 % (50.0-70.0); PLATELET ESTIMATE NORMAL (NORMAL)
--- NOTE | 2018-06-27 14:22 | CP.PCM.APN ---
Subjective - Date & Time of Evaluation Date of Evaluation: 06/27/18 Time of Evaluation: 12:45 - Subjective Subjective: Pt. seen and examined, sitting up in bed, signif other at bedside. States just became short of breath after ambulating with PT, inquiring about home oxygen. States breathing at rest is better, c/o cough, denied chest pain, palpitations, any other complaints. Objective - Vital Signs/Intake and Output Vital Signs (last 24 hours): Temp Pulse Resp BP Pulse Ox 97.5 F L 95 H 20 108/71 94 L 06/26/18 18:00 06/27/18 10:03 06/26/18 18:00 06/27/18 10:03 06/26/18 05:34 Intake and Output: 06/27/18 06/27/18 06:59 18:59 Intake Total 720 Balance 720 - Medications Medications: Current Medications Albuterol/Ipratropium (Duoneb 3 Mg/0.5 Mg (3 Ml) Ud) 3 ml IH [id number] [facility] Last Admin: 06/27/18 11:15 Dose: 3 ml Albuterol/Ipratropium (Duoneb 3 Mg/0.5 Mg (3 Ml) Ud) 3 ml IH Q2H PRN PRN Reason: Shortness of Breath Alprazolam (Xanax) 1 mg PO QID PRN; Protocol PRN Reason: Anxiety Last Admin: 06/26/18 21:02 Dose: 1 mg Amlodipine Besylate (Norvasc) 5 mg PO DAILY [facility] Last Admin: 06/27/18 10:02 Dose: 5 mg Arformoterol Tartrate (Brovana) 15 mcg IH [id number] [facility] Last Admin: 06/27/18 07:33 Dose: 15 mcg Aspirin (Ecotrin) 325 mg PO DAILY [facility] Last Admin: 06/27/18 09:59 Dose: 325 mg Atorvastatin Calcium (Lipitor) 40 mg PO DIN [facility] Last Admin: 06/26/18 17:32 Dose: 40 mg Budesonide (Pulmicort Respules) 0.5 mg IH [id number] [facility] Last Admin: 06/27/18 07:34 Dose: 0.5 mg Furosemide (Lasix) 20 mg PO DAILY [facility] Last Admin: 06/27/18 10:00 Dose: 20 mg Gabapentin (Neurontin) 300 mg PO TID [facility]; Protocol Last Admin: 06/27/18 10:01 Dose: 300 mg Guaifenesin/Codeine Phosphate (Robitussin W/Codeine) 5 ml PO Q4H PRN PRN Reason: Cough and congestion Last Admin: 06/27/18 11:42 Dose: 5 ml Levofloxacin/Dextrose (Levaquin 500mg) 500 mg in 100 mls @ 100 mls/hr IVPB DAILY [facility]; Protocol Last Admin: 06/27/18 10:00 Dose: 100 mls/hr Insulin Detemir (Levemir) 10 unit SC QAM [facility] Last Admin: 06/27/18 10:01 Dose: 10 units Insulin Detemir (Levemir) 12 unit SC HS [facility] Last Admin: 06/26/18 22:08 Dose: 12 unit Insulin Human Lispro (Humalog High) 0 units SC ACHS [facility]; Protocol Last Admin: 06/27/18 11:48 Dose: 12 units Methylprednisolone (Solu-Medrol) 30 mg IVP DAILY [facility] Last Admin: 06/27/18 10:02 Dose: 30 mg Metoprolol Succinate (Toprol Xl) 50 mg PO BRK [facility] Last Admin: 06/27/18 10:03 Dose: 50 mg Nicotine (Nicoderm Cq) 1 patch TD DAILY [facility] Last Admin: 06/27/18 10:01 Dose: 1 patch Ondansetron HCl (Zofran Tab) 4 mg PO Q8H PRN PRN Reason: Nausea/Vomiting Last Admin: 06/26/18 21:20 Dose: 4 mg Pantoprazole Sodium (Protonix Ec Tab) 40 mg PO 0600 [facility] Last Admin: 06/27/18 05:53 Dose: 40 mg Quetiapine Fumarate (Seroquel) 50 mg PO HS [facility]; Protocol Last Admin: 06/26/18 21:02 Dose: 50 mg Throat Lozenges (Cepastat) 1 yann MT Q6H PRN PRN Reason: Sore Throat - Labs Labs: 06/27/18 06:00 06/27/18 06:00 PT 12.0 SECONDS (9.4-12.5) 06/25/18 02:26 INR 1.08 06/25/18 02:26 APTT 35.4 Seconds (26.9-38.3) 06/25/18 02:26 - Constitutional Appears: Well, Non-toxic - Head Exam Head Exam: NORMOCEPHALIC - Eye Exam Eye Exam: Normal appearance Pupil Exam: NORMAL ACCOMODATION - ENT Exam ENT Exam: Mucous Membranes Moist, Normal Exam - Neck Exam Neck Exam: Full ROM - Respiratory Exam Respiratory Exam: Decreased Breath Sounds - Cardiovascular Exam Cardiovascular Exam: REGULAR RHYTHM, +S1, +S2 - GI/Abdominal Exam GI & Abdominal Exam: Soft - Rectal Exam Rectal Exam: Deferred - Exam Exam: absent: Circumcision, NORMAL INSPECTION, Scrotal Swelling, Testicular Tenderness, Uretheral Discharge, Testicular Vertical Lie, Bladder Distension External exam: absent: Ecchymosis, Erythema, Lacerations, Lesions, NORMAL EXTERNAL EXAM, Swelling Bimanual exam: absent: Adenexal Mass, Adnexal, Cervical Motion Tendernes, NORMAL BIMANUAL EXAM, Uterine Enlargement, Uterine Tenderness - Extremities Exam Extremities Exam: Full ROM - Back Exam Back Exam: NORMAL INSPECTION - Neurological Exam Neurological Exam: Oriented x3 - Psychiatric Exam Psychiatric exam: Normal Affect, Normal Mood - Skin Skin Exam: Dry, Intact, Normal Color, Warm Assessment and Plan - Assessment and Plan (Free Text) Assessment: ITS Impressions Chest X-Ray 06/25/18 02:15 IMPRESSION: Infiltrate at the right lung base. Prominent interstitial markings. Assessment: 68 year old female, whose past medical history includes COPD and CAD with stents, presents to the emergency department complaining of shortness of breath for 3 days,states she has seen her PMD who had placed her on Levaquin and a cough expectorant, has failed outpatient treatment and now admitted with pneumonia , copd for further eval and treatment. Plan: 1. Pneumonia right lower lobe Continue IV Antibiotics, monitor/trend Wbc 2. COPD exac, angelique IV steroid weaning, Duonebs, inhalers monitor resp status. Will continue to monitor clinical status and follow closely
[2018-06-28] MEDS: guaiFENesin-Codeine 100-10mg/5ml Syrup (5 ml) UD PO PRN ×3 (01:14→22:37)
[2018-06-28] MEDS: Albuterol-Ipratrop 3 mg / 0.5 (3 ml) UD IH SCH ×6 (03:30→23:20)
[2018-06-28] MEDS: Pantoprazole 40 mg EC Tab PO SCH (06:24)
[2018-06-28 07:20] LABS: BASO # 0.01 K/mm3 (0.0-2.0); BASO % 0.1 % (0.0-3.0); EOS % 0.1 % (1.5-5.0); HEMOGLOBIN 11.1 g/dL (12.0-16.0); MEAN CORPUSCULAR HEMOGLOBIN 27.2 pg (25.0-35.0); MEAN PLATELET VOLUME 9.4 fl (7.0-11.0); MONO # 1.5 (0.1-0.6); MONO % 11.2 % (1.0-6.0); RBC 4.08 10^6/uL (3.5-6.1); RED CELL DISTRIBUTION WIDTH 14.5 % (11.5-14.5); WHITE BLOOD COUNT 13.6 10^3/uL (4.5-11.0)
[2018-06-28] MEDS: Arformoterol 15 mcg/2 ml Inh Sol IH SCH ×2 (07:39→19:50)
[2018-06-28] MEDS: Budesonide 0.5 mg/2 ml Inhal Susp UD IH SCH ×2 (07:40→19:51)
[2018-06-28 07:48] LABS: ALB/GLOB RATIO 1.1 (1.1-1.8); ALBUMIN 3.4 g/dL (3.0-4.8); ALT/SGPT 32 U/L (7-56); AST/SGOT 37 U/L (14-36); BLOOD UREA NITROGEN 21 mg/dL (7-21); CALCIUM 8.8 mg/dL (8.4-10.5); GFR NON-AFRICAN AMERICAN > 60
[2018-06-28] MEDS: Insulin Lispro (HUMAlog) HIGH Coverage SC SCH ×4 (07:54→22:33)
[2018-06-28] MEDS: Aspirin 325 mg EC Tablets PO SCH (09:35)
[2018-06-28] MEDS: levoFLOXacin 500 mg in D5W 500 MG/100 ML BAG IVPB SCH (09:36)
[2018-06-28] MEDS: Insulin Detemir 100 units/ml Vial (Levemir) SC SCH ×2 (09:36→22:22)
[2018-06-28] MEDS: MethylPREDNISolone 40 mg Vial IVP SCH (09:38)
[2018-06-28] MEDS: Metoprolol Succinate 50 mg XL Tab PO SCH (09:39)
--- NOTE | 2018-06-28 15:39 | PN ---
DATE: 06/28/2018 SUBJECTIVE: She is currently in room 378, bed two. She has no complaints and there have been no acute events overnight. PHYSICAL EXAMINATION: VITAL SIGNS: Temperature of 98.4, pulse rate of 78, blood pressure 166/69, respiratory rate of 18 with an O2 saturation of 94% on room air. HEENT: Unremarkable. NECK: Supple with full range of motion. LUNGS: Clear to auscultation and percussion bilaterally. HEART: Shows a regular rate and rhythm with no murmurs. ABDOMEN: Benign. EXTREMITIES: Show no deformities or edema. NEUROLOGIC: There are no focal motor deficits. LABORATORY DATA: Lab values are WBC of 13.6, hemoglobin and hematocrit 11.1 and 34.7. Sodium 131, chloride of 94, glucose of 340. This is due of a steroid effect. AST and ALT at 37 and 32 respectively. ASSESSMENT AND PLAN: The patient is being tapered off steroids. We will continue current medication. The impression at this time is exacerbation of chronic obstructive pulmonary disease, cor pulmonale, pneumonia, diabetes. Edward Arenas MD
--- NOTE | 2018-06-28 16:05 | CP.PCM.PCO ---
Additional Comments - Additional Comments Additional Comments: Pt. seen this am , sitting up in bed, no dyspnea noted, no signif. wheezing noted. still with cough. Solumedrol tapered down to 30 mg daily. PT rec. TCU, accepted per Danielle Robins to comment on patient's Seroquel, continued from home prior to admisson, for dC to Tcu tommorow. Discussed with PMD,CARLYN/IVETH.
--- NOTE | 2018-06-28 16:18 | CP.PCM.PCO ---
Physician Communication Note - Physician Communication Note Physician Communication Note: pt is on seroquel since 2013, for now continue, pt could be transferred Addendum Addendum: 06/28/18 16:17 as per record pt is on seroquel since 2013, for now continue, pt could be transferred to TCU Dr.Rubin fajardo f/u over the weekend.
[2018-06-29] MEDS: Albuterol-Ipratrop 3 mg / 0.5 (3 ml) UD IH SCH ×3 (05:30→11:36)
[2018-06-29] MEDS: Pantoprazole 40 mg EC Tab PO SCH (05:59)
[2018-06-29] MEDS: guaiFENesin-Codeine 100-10mg/5ml Syrup (5 ml) UD PO PRN ×2 (05:59→13:16)
[2018-06-29] MEDS: Budesonide 0.5 mg/2 ml Inhal Susp UD IH SCH (08:07)
[2018-06-29] MEDS: Arformoterol 15 mcg/2 ml Inh Sol IH SCH (08:08)
[2018-06-29 08:20] LABS: BASO # 0.01 K/mm3 (0.0-2.0); BASO % 0.1 % (0.0-3.0); EOS # 0.1 (0.0-0.7); EOS % 0.6 % (1.5-5.0); LYMPH # 3.6 (1.2-3.4); LYMPH % 33.1 % (22.0-35.0); MEAN CELL VOLUME 84.2 fl (80.0-105.0); MEAN CORPUSCULAR HEMOGLOBIN 27.4 pg (25.0-35.0); MEAN CORPUSCULAR HGB CONC 32.5 g/dl (31.0-37.0); MEAN PLATELET VOLUME 9.5 fl (7.0-11.0); MONO % 9.1 % (1.0-6.0); RBC 4.38 10^6/uL (3.5-6.1); RED CELL DISTRIBUTION WIDTH 14.4 % (11.5-14.5); WHITE BLOOD COUNT 10.8 10^3/uL (4.5-11.0)
[2018-06-29 08:33] LABS: ALB/GLOB RATIO 1.1 (1.1-1.8); ALBUMIN 3.2 g/dL (3.0-4.8); ALT/SGPT 23 U/L (7-56); AST/SGOT 22 U/L (14-36); BLOOD UREA NITROGEN 26 mg/dL (7-21); CALCIUM 9.2 mg/dL (8.4-10.5); GFR NON-AFRICAN AMERICAN > 60
[2018-06-29 08:49] VITALS: BP 126/65; PULSE 83; RESP 20; TEMP 98.1; O2SAT 96
[2018-06-29] MEDS: Insulin Lispro (HUMAlog) HIGH Coverage SC SCH ×2 (09:37→12:09)
[2018-06-29] MEDS: Aspirin 325 mg EC Tablets PO SCH (09:44)
[2018-06-29] MEDS: Insulin Detemir 100 units/ml Vial (Levemir) SC SCH (09:45)
[2018-06-29] MEDS: Metoprolol Succinate 50 mg XL Tab PO SCH (09:47)
[2018-06-29] MEDS ORDERED: levoFLOXacin 500 MG TAB PO SCH (10:00)
--- NOTE | 2018-06-29 11:13 | PN ---
SUBJECTIVE: The patient was seen and examined at bedside on the general medical limon. No acute events overnight. She remains afebrile, hemodynamically stable and with near resolution of her respiratory symptoms. She is pending transfer to TCU for continued strengthening. OBJECTIVE: VITAL SIGNS: Temperature 98.1, pulse 83, blood pressure 126/65, respiratory rate 20, oxygen saturation 96% on room air. GENERAL: No apparent distress. HEENT: PERRL, EOMI. No scleral icterus. No conjunctival pallor. NECK: No JVD. LUNGS: Clear to auscultation. CARDIOVASCULAR: Regular rate and rhythm. Normal S1, S2. ABDOMEN: Normoactive bowel sounds, soft, nontender, nondistended. EXTREMITIES: No edema. NEUROLOGIC: Awake, alert and oriented x 3. No focal motor deficits. LABORATORY DATA: WBC 10.8 with 57% neutrophils, hemoglobin 12, hematocrit 37, platelets 396. Sodium 132, potassium 4.2, chloride 97, bicarb 30, BUN 26, creatinine 0.7, glucose 334. Blood cultures negative. ASSESSMENT: The patient is a 68-year-old woman with multiple medical comorbidities including severe COPD with active tobacco dependence who presented for evaluation of a 5 day history of chest tightness, wheeze, dyspnea and cough productive of green sputum and was admitted for management of community-acquired pneumonia. PLAN: 1. Community-acquired pneumonia, resolving. Continue supplemental oxygen and bronchodilators. We will discontinue steroids. Continue Levaquin 500 mg p.o daily to complete a 10-day course. Continue to monitor for fever and leukocytosis and await final culture reports. 2. Severe COPD. Continue supplemental oxygen and bronchodilators. 3. Insulin-dependent diabetes mellitus. Fingersticks remain elevated secondary to IV steroids which will be discontinued today. We will continue to monitor fingersticks and adjust glycemic control as needed. 4. CAD s/p PCI with stent placement. Continue Aspirin 325 mg p.o. daily, Lipitor 40 mg p.o. daily and Toprol XL 50 mg p.o daily. 5. Hypertension. Continue Toprol XL 50 mg p.o daily and Norvasc 5 mg p.o daily. 6. Hyperlipidemia. Continue Lipitor 40 mg p.o daily. 7. Anxiety disorder. Continue Xanax 1 mg p.o q. 6 hours as needed for anxiety. 8. Sciatica. Continue Gabapentin 300 mg p.o. t.i.d. 9. Prophylaxis. Continue Protonix for GI prophylaxis. DVT prophylaxis is not indicated as the patient is ambulatory. Code status full code. Tj Arenas MD [facility]
[2018-06-29] MEDS ORDERED: Insulin Detemir 100 units/ml Vial (Levemir) SC SCH ×2 (13:57)
--- NOTE | 2018-07-01 08:49 | CON ---
DATE: 06/29/2018 HISTORY OF PRESENT ILLNESS: The patient is a 68-year-old female with a history of anxiety as well as depression. No psychiatric admissions or suicide attempts, who is currently being prescribed Xanax and Seroquel by her primary care doctor though in prior treatment with years ago, who is being consulted on the medical floor as she is being planned to [facility]. Psychiatry was consulted regarding the patient's current prescription of 50 mg of Seroquel at night. I met with the patient at bedside and the patient is calm, cooperative, and well oriented to current month, year, location, and circumstances. She reports that she does have bouts of anxiety and she feels that the Xanax that she is being prescribed at 1 mg q.i.d. has been very beneficial for panic symptoms and generally she feels that she is able to function when she is able to take this medication. The patient has also been prescribed Seroquel for many years and she would like to streamline her medications and in this respect, she has been decreasing her Seroquel to 25 mg as recommended by her primary care doctor and she has no issues with discontinuing this medication altogether. She does not appear to have any diagnosis of psychosis or incidents of psychosis and likely will not decompensate in this respect; however, she might have issues however, Psychiatry will follow up with her to determine her level of functioning. Her insight and judgement are considered to be fair. PSYCHIATRIC HISTORY: The patient denies any suicidal attempts or psychiatric hospitalizations. She has been seen by and was prescribed Xanax and Seroquel. Currently now prescribed Xanax and Seroquel by her primary care doctor, Xanax is prescribed at 1 mg q.i.d. and Seroquel 50 mg at bedtime. SOCIAL HISTORY: The patient was born in [place] and currently lives in [place]. twice, one for 11 years and other was only for 4 months. She has two sons. She lives with a caregiver for about 20 years. She has a supportive relationship with an individual. Labs and vitals were reviewed. MEDICATIONS: Relevant psychiatric medications include Xanax 1 mg p.o. q.i.d. p.r.n. and Seroquel 50 mg at bedtime scheduled. IMPRESSION: Anxiety disorder, not otherwise specified, likely complaints of panic and adjustment disorder with anxiety, rule out generalized anxiety disorder. The patient denies being depressed at this time. RECOMMENDATIONS: We will discontinue Seroquel at this time and continue with Xanax. The patient is in full agreement. We will follow up with the patient in few days to determine her functioning status post discontinuation, but overall she should tolerate this well. Michelle Melendez MD
--- NOTE | 2018-07-02 03:43 | DS ---
ADMISSION DIAGNOSIS: Community-acquired pneumonia. DISCHARGE DIAGNOSIS: Community-acquired pneumonia. SECONDARY DIAGNOSES: Chronic obstructive pulmonary disease with active tobacco dependence, insulin-dependent diabetes mellitus, coronary artery disease status post percutaneous coronary intervention with stent placement, hypertension, hyperlipidemia, anxiety disorder and sciatica. CONSULTATIONS: None. IMAGING STUDIES: Chest x-ray demonstrates infiltrate to the right lung base. DIAGNOSTIC STUDIES: None. PROCEDURES: None. HISTORY OF PRESENT ILLNESS: The patient is a 60-year-old woman with a past medical history of severe COPD with active smoking who presented for evaluation of a 5-day history of chest tightness, dyspnea, wheeze and cough productive of green sputum. She was initially seen in her PMD's office 2 days prior with the aforementioned symptoms, she was diagnosed with COPD exacerbation, started on Levaquin and prednisone. Two days later she called her PMD because her symptoms had not improved. She was advised to continue her current treatment and as she had no improve over the following 24 hours, to return for reevaluation or to present to the nearest ED. Over the following 24 hours, she demonstrated no improvement and thus opted for ED evaluation. In the ED, she was afebrile and hemodynamically stable, however, in moderate respiratory distress. She received multiple rounds of bronchodilator treatments without resolution of her wheeze and as such was admitted for continued management. HOSPITAL COURSE: Upon admission to the telemetry limon, she was maintained on supplemental oxygen and bronchodilators. Cultures were obtained in the emergency department and the patient was started on Levaquin 500 mg IV daily. Over the following 36 hours, she noted significant improvement in her respiratory status and was able to ambulate around the telemetry limon, albeit with mild respiratory distress. After evaluation with physical therapy, recommendations were made for transfer to TCU for continued strengthening to which the patient was agreeable and on hospital day number 4 she was transferred to TCU. CONDITION: Good, improved. DISPOSITION: TCU. FOLLOWUP: The patient will be followed by her PMD while on the TCU. Tj Arenas MD
== END 2018-06-29 14:55 | DRG 190 ==
LOC: ED 02:03 → ERH 04:31 → 2RNO 05:29 → OBSVTOIN 06-26 08:18 → 3RSO 06-26 19:27
PROVIDERS: ADMIT Student in an Organized Health Care Education/Training Program; ATTEND Student in an Organized Health Care Education/Training Program
DX: J44.1 Chronic obstructive pulmonary disease with (acute) exacerbation (principal); J18.9 Pneumonia, unspecified organism; J44.0 Chronic obstructive pulmonary disease with (acute) lower respiratory infection; F17.200 Nicotine dependence, unspecified, uncomplicated; E11.9 Type 2 diabetes mellitus without complications; Z79.899 Other long term (current) drug therapy; Z79.82 Long term (current) use of aspirin; Z79.4 Long term (current) use of insulin; I27.81 Cor pulmonale (chronic); I10 Essential (primary) hypertension; Z95.5 Presence of coronary angioplasty implant and graft; E78.5 Hyperlipidemia, unspecified; F41.0 Panic disorder [episodic paroxysmal anxiety]; F43.22 Adjustment disorder with anxiety; I25.10 Atherosclerotic heart disease of native coronary artery without angina pectoris; K21.9 Gastro-esophageal reflux disease without esophagitis; Z90.721 Acquired absence of ovaries, unilateral; Z88.0 Allergy status to penicillin; Z87.892 Personal history of anaphylaxis; Z88.1 Allergy status to other antibiotic agents; Z91.040 Latex allergy status; M54.30 Sciatica, unspecified side

== ENCOUNTER 2018-06-29 14:44 | Inpatient (IN) | payer OTHER ==
[2018-06-29 16:01] VITALS: BMI 29.3
[2018-06-29] MEDS ORDERED: Menthol/Phenol (Cepastat) Lozenge MT PRN (16:12)
[2018-06-29] MEDS ORDERED: Albuterol-Ipratrop 3 mg / 0.5 (3 ml) UD IH PRN (16:25)
[2018-06-29] MEDS: Insulin Lispro (HUMAlog) HIGH Coverage SC SCH ×2 (16:38→21:31)
[2018-06-29] MEDS ORDERED: Alum-Mag Hydrox-Simethicone Susp (30 mL) PO PRN (18:21)
[2018-06-29] MEDS ORDERED: Arformoterol 15 mcg/2 ml Inh Sol IH SCH (20:00)
[2018-06-29] MEDS: Albuterol-Ipratrop 3 mg / 0.5 (3 ml) UD IH SCH (20:10)
[2018-06-29] MEDS: Budesonide 0.5 mg/2 ml Inhal Susp UD IH SCH (20:10)
[2018-06-29] MEDS: Arformoterol 15 mcg/2 ml Inh Sol IH SCH (20:10)
[2018-06-29] MEDS: Insulin Detemir 100 units/ml Vial (Levemir) SC SCH (21:45)
--- NOTE | 2018-06-29 22:13 | CP.PCM.PN ---
Subjective - Date & Time of Evaluation Date of Evaluation: 06/29/18 Time of Evaluation: 21:55 - Subjective Subjective: Patient was seen at bedside. I was asked to co-sign order for Seroquel. She states that they can not stop her Seroquel just like that. States that she can not sleep without Seroquel. She has no other complaints. Medical record was reviewed. This 68 year old woman was admitted to acute care [facility] for pneumonia. Has PMH of CAD,S/P PCI,HTN,HLD,IDDM,anxiety,sciatica. Objective - Vital Signs/Intake and Output Vital Signs (last 24 hours): Temp Pulse Resp BP Pulse Ox 97.4 F L 85 18 123/68 94 L 06/29/18 16:00 06/29/18 16:00 06/29/18 17:48 06/29/18 16:00 06/29/18 16:00 Intake and Output: 06/29/18 06/30/18 18:59 06:59 Intake Total 340 Balance 340 - Medications Medications: Current Medications Acetaminophen (Tylenol 325mg Tab) 650 mg PO Q6H PRN; Protocol PRN Reason: Pain, Mild (1-3) Al Hydrox/Mg Hydrox/Simethicone (Maalox Plus 30 Ml) 30 ml PO QID PRN; Protocol PRN Reason: Indigestion / Heartburn Albuterol/Ipratropium (Duoneb 3 Mg/0.5 Mg (3 Ml) Ud) 3 ml IH [id number] GELA; Protocol Albuterol/Ipratropium (Duoneb 3 Mg/0.5 Mg (3 Ml) Ud) 3 ml IH Q2H PRN; Protocol PRN Reason: Shortness of Breath Alprazolam (Xanax) 1 mg PO QID PRN; Protocol PRN Reason: Anxiety Last Admin: 06/29/18 21:45 Dose: 1 mg Amlodipine Besylate (Norvasc) 5 mg PO DAILY GELA; Protocol Arformoterol Tartrate (Brovana) 15 mcg IH [id number] GELA; Protocol Aspirin (Ecotrin) 325 mg PO 0800 GELA; Protocol Atorvastatin Calcium (Lipitor) 40 mg PO DIN GELA; Protocol Last Admin: 06/29/18 17:42 Dose: 40 mg Budesonide (Pulmicort Respules) 0.5 mg IH [id number] GELA; Protocol Furosemide (Lasix) 20 mg PO DAILY GELA; Protocol Gabapentin (Neurontin) 300 mg PO TID GELA; Protocol Last Admin: 06/29/18 17:42 Dose: 300 mg Guaifenesin/Codeine Phosphate (Robitussin W/Codeine) 5 ml PO Q4H PRN; Protocol PRN Reason: Cough and congestion Insulin Detemir (Levemir) 15 unit SC ACB GELA; Protocol Insulin Detemir (Levemir) 15 unit SC HS GELA; Protocol Last Admin: 06/29/18 21:45 Dose: 15 units Insulin Human Lispro (Humalog High) 0 units SC ACHS GELA; Protocol Last Admin: 06/29/18 21:31 Dose: Not Given Levofloxacin (Levaquin) 500 mg PO DAILY GELA; Protocol Metoprolol Succinate (Toprol Xl) 50 mg PO BRK GELA; Protocol Nicotine (Nicoderm Cq) 1 patch TD DAILY [facility]; Protocol Ondansetron HCl (Zofran Tab) 4 mg PO Q8H PRN; Protocol PRN Reason: Nausea/Vomiting Last Admin: 06/29/18 18:06 Dose: 4 mg Pantoprazole Sodium (Protonix Ec Tab) 40 mg PO 0600 GELA; Protocol Throat Lozenges (Cepastat) 1 yann MT Q6H PRN; Protocol PRN Reason: Sore Throat - Constitutional Appears: Well, No Acute Distress - Head Exam Head Exam: ATRAUMATIC, NORMAL INSPECTION, NORMOCEPHALIC - Eye Exam Eye Exam: Normal appearance - ENT Exam ENT Exam: Normal External Ear Exam - Neck Exam Neck Exam: Normal Inspection - Respiratory Exam Respiratory Exam: NORMAL BREATHING PATTERN - Cardiovascular Exam Cardiovascular Exam: absent: JVD - GI/Abdominal Exam GI & Abdominal Exam: absent: Distended - Rectal Exam Rectal Exam: Deferred - Exam Additional comments: Deferred. - Extremities Exam Extremities Exam: Normal Inspection - Back Exam Back Exam: NORMAL INSPECTION - Neurological Exam Neurological Exam: Alert, Awake, Oriented x3 - Psychiatric Exam Psychiatric exam: Normal Affect, Normal Mood - Skin Skin Exam: Normal Color Assessment and Plan - Assessment and Plan (Free Text) Assessment: Insomnia. Anxiety. CAD IDDM HTN HLD PNA. Plan: Seroquel 25 mg PO x 1. Continue present management.
[2018-06-30] MEDS: Albuterol-Ipratrop 3 mg / 0.5 (3 ml) UD IH SCH ×7 (00:10→23:27)
[2018-06-30] MEDS: Pantoprazole 40 mg EC Tab PO SCH (05:40)
[2018-06-30] MEDS: Insulin Detemir 100 units/ml Vial (Levemir) SC SCH ×2 (07:16→21:41)
[2018-06-30] MEDS: Insulin Lispro (HUMAlog) HIGH Coverage SC SCH ×4 (07:16→21:41)
[2018-06-30] MEDS: Arformoterol 15 mcg/2 ml Inh Sol IH SCH ×2 (07:31→20:20)
[2018-06-30] MEDS: Budesonide 0.5 mg/2 ml Inhal Susp UD IH SCH ×2 (07:34→20:22)
[2018-06-30] MEDS: Metoprolol Succinate 50 mg XL Tab PO SCH (08:06)
[2018-06-30] MEDS: Aspirin 325 mg EC Tablets PO SCH (08:06)
[2018-06-30] MEDS: levoFLOXacin 500 MG TAB PO SCH (09:46)
[2018-06-30] MEDS: guaiFENesin-Codeine 100-10mg/5ml Syrup (5 ml) UD PO PRN ×2 (10:18→14:10)
[2018-07-01] MEDS: Albuterol-Ipratrop 3 mg / 0.5 (3 ml) UD IH SCH ×5 (05:03→20:51)
[2018-07-01] MEDS: Pantoprazole 40 mg EC Tab PO SCH (06:21)
[2018-07-01] MEDS: Insulin Detemir 100 units/ml Vial (Levemir) SC SCH ×2 (07:24→21:32)
[2018-07-01] MEDS: Insulin Lispro (HUMAlog) HIGH Coverage SC SCH ×3 (07:25→17:20)
[2018-07-01] MEDS: Aspirin 325 mg EC Tablets PO SCH (07:58)
[2018-07-01] MEDS: Metoprolol Succinate 50 mg XL Tab PO SCH (07:58)
[2018-07-01] MEDS: Budesonide 0.5 mg/2 ml Inhal Susp UD IH SCH ×2 (08:07→20:51)
[2018-07-01] MEDS: Arformoterol 15 mcg/2 ml Inh Sol IH SCH ×2 (08:07→20:51)
[2018-07-01] MEDS: levoFLOXacin 500 MG TAB PO SCH (09:28)
[2018-07-01] MEDS: guaiFENesin-Codeine 100-10mg/5ml Syrup (5 ml) UD PO PRN (19:27)
--- NOTE | 2018-07-01 22:22 | PN ---
SUBJECTIVE: The patient was seen and examined at bedside on the TCU. No acute events overnight. She remains afebrile and hemodynamically stable. OBJECTIVE: VITAL SIGNS: Temperature 97.9, pulse 80, blood pressure 100/60, respiratory rate 20, and oxygen saturation 95% on room air. GENERAL: No apparent distress. HEENT: PERRL, EOMI. No scleral icterus. No conjunctival pallor. NECK: No JVD. LUNGS: Clear to auscultation. CARDIOVASCULAR: Regular rate and rhythm. Normal S1 and S2. ABDOMEN: Normoactive bowel sounds, soft, nontender, and nondistended. EXTREMITIES: No edema. NEUROLOGIC: Awake, alert, and oriented x 3. No focal motor deficits. LABORATORY DATA: No new labs. ASSESSMENT: The patient is a 68-year-old woman with multiple medical comorbidities including severe COPD with active tobacco dependence who was initially admitted for management of community-acquired pneumonia and was subsequently transferred to the TCU for continued PT. PLAN: 1. Community-acquired pneumonia, resolving. Continue Levaquin 500 mg p.o. daily to complete a 10 day course (today day #6 of 10). 2. Severe COPD. Continue with supplemental oxygen, bronchodilators. 3. Insulin-dependent diabetes mellitus. Continue to monitor fingersticks q.a.c. and at bedtime. Continue with current insulin regimen. 4. CAD s/p PCI with stent placement. Continue Aspirin 325 mg p.o. daily, Lipitor 40 mg p.o. daily and Toprol XL 50 mg p.o. daily. 5. Hypertension. Continue Toprol XL 50 mg p.o. daily and Norvasc 5 mg p.o. daily. 6. Hyperlipidemia. Continue Lipitor 40 mg p.o. daily. 7. Anxiety disorder. Continue Xanax 1 mg p.o. q. 6 hours as needed for anxiety. 8. Sciatica. Continue Gabapentin 300 mg p.o. t.i.d. 9. Prophylaxis. Continue Protonix for GI prophylaxis. DVT prophylaxis not indicated as the patient is ambulatory. CODE STATUS: Full code. Tj Arenas MD [facility] # [id number]
--- NOTE | 2018-07-01 22:29 | PN ---
DATE: 07/01/2018 SUBJECTIVE: The patient was seen and examined today at the Transitional Care Unit. Notes reviewed. The patient initially was seen by Dr. Melendez for medication management. The patient was prescribed Seroquel for many years and plan was to wean the patient off from the Seroquel. The patient was seen today with the medical student. The patient presented to be alert and oriented, pleasant and cooperative. The patient's was next to the patient. The patient wants to be interviewed in front of her . As per the patient, she has a history of depression and anxiety, that is why Seroquel was prescribed to her by Dr. Prieto many years ago. The patient reported that she stopped seeing Dr. Ozzy Prieto and her primary care physician was prescribing her Seroquel. The patient was not aware that Seroquel is antipsychotic medication. After full explaining risks, benefits and alternatives of the medication, the patient agreed to decreased doses of Seroquel. The patient reported that she was taking this medication for many years and she is afraid of discontinuing medication abruptly. Plan was discussed over the weekend. Seroquel was decreased to 50 mg at the nighttime, yesterday was 25 mg and today it will be 12.5 mg. For another couple of days, the patient will continue Seroquel 12.5 mg at the nighttime. The patient agreed with that plan. The patient denied feeling of hopelessness. Denied being depressed. Denied thoughts of harming herself or others. Denied any psychotic symptoms. PHYSICAL EXAMINATION: VITAL SIGNS: Reviewed. MENTAL STATUS EXAM: The patient presented to be alert and oriented, pleasant, cooperative, socially appropriate, fair eye contact. Speech was underproductive because the patient has COPD exacerbation, sometimes the patient was short of breath. Mood described as okay. Affect was reactive, mood congruent. Thought process was coherent and goal directed. Thought content, the patient denied visual, auditory, or tactile hallucinations. Denied paranoid ideation. The patient denied thoughts of harming herself or others. Denied intent or plan. Insight and judgment seems to be fair. Impulses are well controlled. LABORATORY DATA: Reviewed. MEDICATIONS: Reviewed. IMPRESSION: As per history, anxiety and depression. PLAN: Seroquel will be decreased to 12.5 mg today. Treatment plan was discussed with the patient and her . We will follow up and advise accordingly. Thank you very much for letting me participate in care of your patient. Makenzie Vernon MD
--- NOTE | 2018-07-02 01:42 | HP ---
DATE OF EXAM: 07/01/2018 HISTORY OF PRESENT ILLNESS: The patient is currently in PICU, room 315, bed 1. She has been transferred here from the acute care facility. The patient is a diabetic, a smoker with COPD, and hypertension. She is here for physical therapy. She presents with no complaints at this time. PAST MEDICAL HISTORY: As previously mentioned. ALLERGIES: HER ALLERGIES ARE TO BACITRACIN, LASIX AND PENICILLIN. PHYSICAL EXAMINATION VITAL SIGNS: This is being dictated on 07/01/2018, but it is from 06/30/2018, the patient was seen yesterday. Blood pressure of 126/72, temperature of 98.2, pulse rate of 83 with an O2 saturation of 93% on room air. HEENT: PERRLA. EOMI. No icterus is present. NECK: Supple with a full range of motion. No adenopathy or bruits are appreciated. LUNGS: Clear to auscultation and percussion bilaterally. HEART: With a regular rate and rhythm. No murmurs, rubs or gallops. ABDOMEN: Benign. NEUROLOGIC: There are no focal motor deficit. IMPRESSION: At this time is; 1. Deconditioning. 2. Diabetes. 3. Hypertension. 4. Chronic obstructive pulmonary disease. 5. Tobacco use. PLAN: Continue with the reconditioning. Edward Arenas MD
[2018-07-02] MEDS: Insulin Lispro (HUMAlog) HIGH Coverage SC SCH ×5 (02:51→21:31)
[2018-07-02] MEDS: guaiFENesin-Codeine 100-10mg/5ml Syrup (5 ml) UD PO PRN ×2 (05:28→20:16)
[2018-07-02] MEDS: Pantoprazole 40 mg EC Tab PO SCH (05:29)
[2018-07-02] MEDS: Insulin Detemir 100 units/ml Vial (Levemir) SC SCH ×2 (06:42→21:19)
[2018-07-02] MEDS: Arformoterol 15 mcg/2 ml Inh Sol IH SCH ×2 (07:16→19:58)
[2018-07-02] MEDS: Albuterol-Ipratrop 3 mg / 0.5 (3 ml) UD IH SCH ×5 (07:17→23:25)
[2018-07-02] MEDS: Budesonide 0.5 mg/2 ml Inhal Susp UD IH SCH ×2 (07:17→19:58)
[2018-07-02] MEDS: Aspirin 325 mg EC Tablets PO SCH (07:52)
[2018-07-02] MEDS: Metoprolol Succinate 50 mg XL Tab PO SCH (07:53)
[2018-07-02] MEDS: levoFLOXacin 500 MG TAB PO SCH (10:59)
--- NOTE | 2018-07-02 15:38 | PN ---
SUBJECTIVE: The patient was seen and examined at bedside on the TCU. No acute events overnight. She remains afebrile, hemodynamically stable and with continued improvement in her respiratory status. OBJECTIVE: VITAL SIGNS: Temperature 97.8, pulse 90, blood pressure 116/67, respiratory rate 20, oxygen saturation 95% on room air. GENERAL: No apparent distress. HEENT: PERRL, EOMI. No scleral icterus. No conjunctival pallor. NECK: No JVD. LUNGS: Clear to auscultation. CARDIOVASCULAR: Regular rate and rhythm. Normal S1, S2. ABDOMEN: Normoactive bowel sounds, soft, nontender, nondistended. EXTREMITIES: No edema. NEUROLOGIC: Awake, alert and oriented x 3. No focal motor deficits. LABORATORY DATA: No new labs. ASSESSMENT: The patient is a 68-year-old woman with multiple medical comorbidities including severe COPD with active tobacco dependence who was initially admitted for management of community-acquired pneumonia and was subsequently transferred to TCU for continued PT. PLAN: 1. Community-acquired pneumonia, resolving. Continue Levaquin 500 mg p.o. daily to complete a 10 day course (today is day #7 of 10). 2. Severe COPD. Continue with supplemental oxygen and bronchodilators. 3. Insulin-dependent diabetes mellitus. Continue with current insulin regimen. Continue monitor fingersticks and adjust insulin as needed. 4. CAD s/p PCI with stent placement. Continue Aspirin 325 mg p.o. daily, Lipitor 40 mg p.o. daily and Toprol XL 50 mg p.o. daily. 5. Hypertension. Continue Toprol XL 50 mg p.o. daily and Norvasc 5 mg p.o. daily. 6. Hyperlipidemia. Continue Lipitor 40 mg p.o. daily. 7. Anxiety disorder. Continue Xanax 1 mg p.o. q. 6 hours as needed for anxiety. 8. Sciatica. Continue Gabapentin 300 mg p.o. t.i.d. 9. Prophylaxis. Continue Protonix for GI prophylaxis. DVT prophylaxis not indicated as the patient is ambulatory. CODE STATUS: Full code. Tj Arenas MD [facility]
[2018-07-03] MEDS: Albuterol-Ipratrop 3 mg / 0.5 (3 ml) UD IH SCH ×6 (04:04→22:56)
[2018-07-03] MEDS: Pantoprazole 40 mg EC Tab PO SCH (05:46)
[2018-07-03] MEDS: Insulin Detemir 100 units/ml Vial (Levemir) SC SCH ×2 (06:55→21:15)
[2018-07-03] MEDS: Insulin Lispro (HUMAlog) HIGH Coverage SC SCH ×4 (06:56→21:15)
[2018-07-03] MEDS: Budesonide 0.5 mg/2 ml Inhal Susp UD IH SCH ×2 (07:05→19:49)
[2018-07-03] MEDS: Arformoterol 15 mcg/2 ml Inh Sol IH SCH ×2 (07:05→19:50)
[2018-07-03] MEDS: Aspirin 325 mg EC Tablets PO SCH (07:53)
[2018-07-03] MEDS: Metoprolol Succinate 50 mg XL Tab PO SCH (07:53)
[2018-07-03] MEDS: guaiFENesin-Codeine 100-10mg/5ml Syrup (5 ml) UD PO PRN (08:15)
[2018-07-03] MEDS: levoFLOXacin 500 MG TAB PO SCH (10:03)
--- NOTE | 2018-07-03 12:41 | PN ---
SUBJECTIVE: The patient was seen and examined at bedside in the TCU. No acute events overnight. She remains afebrile and hemodynamically stable. OBJECTIVE: VITAL SIGNS: Temperature 98, pulse 70, blood pressure 113/68, respiratory rate 20 and oxygen saturation 100% on room air. GENERAL: No apparent distress. HEENT: PERRL, EOMI. No scleral icterus. No conjunctival pallor. NECK: No JVD. LUNGS: Clear to auscultation. CARDIOVASCULAR: Regular rate and rhythm. Normal S1 and S2. ABDOMEN: Normoactive bowel sounds, soft, nontender and nondistended. EXTREMITIES: No edema. NEUROLOGIC: Awake, alert and oriented x 3. No focal motor deficits. LABORATORY DATA: No new labs. ASSESSMENT: The patient is a 68-year-old woman with multiple medical comorbidities including severe COPD with active tobacco dependence who was initially admitted for management of community-acquired pneumonia and was subsequently transferred to the TCU for continued PT. PLAN: 1. Community-acquired pneumonia, resolving. Continue Levaquin 500 mg p.o. daily to complete a 10-day course (today is day #8 of 10). 2. Severe COPD. Continue with supplemental oxygen and bronchodilators. 3. Insulin-dependent diabetes mellitus. Continue with current insulin regimen. Continue monitor fingersticks and adjust insulin as needed. 4. CAD s/p PCI with stent placement. Continue Aspirin 325 mg p.o. daily, Lipitor 40 mg p.o. daily and Toprol XL 50 mg p.o. daily. 5. Hypertension. Continue Toprol XL 50 mg p.o. daily and Norvasc 5 mg p.o. daily. 6. Hyperlipidemia. Continue Lipitor 40 mg p.o. daily. 7. Anxiety disorder. Continue Xanax 1 mg p.o. q. 6 hours as needed for anxiety. 8. Sciatica. Continue Gabapentin 300 mg p.o. t.i.d. 9. Prophylaxis. Continue Protonix for GI prophylaxis. DVT prophylaxis is not indicated as the patient is ambulatory. CODE STATUS: Full code. Tj Arenas MD [facility]
--- NOTE | 2018-07-03 19:41 | PN ---
DATE: 07/03/2018 SUBJECTIVE: The patient was seen today. The patient presented well, but anxious. The patient reported she did not sleep for past 2 days. This tag writer offered to resume Seroquel 25 mg at the nighttime with a plan to wean it off slowly as outpatient. The patient agreed with that plan. The patient reported that overall she is improving. She expressed interest to see Dr. Melendez in [facility]. Information was provided. The patient reported that she is feeling much better. She is adamant to quit smoking. The patient denied feeling anxious. Denied feeling of hopelessness or helplessness. Denied any psychosis. OBJECTIVE: VITAL SIGNS: Stable. MENTAL STATUS EXAMINATION: The patient presented to be alert, good personal hygiene. Mood described as feeling better. Affect was more reactive and mood congruent. Thought process coherent and goal directed. Thought content, the patient denied visual, auditory, or tactile hallucinations. Denied paranoid ideation. The patient denied thoughts of harming herself or others and intent or plan. Insight and judgment seems to be improving. Impulse well controlled. MEDICATIONS: Reviewed. This tag writer will put back Seroquel 25 mg at the nighttime as needed for insomnia as well as psychosis. Of note, the patient was on higher dose of Seroquel for many years prescribed by Dr. Ozzy Prieto at the beginning and primary care was continued that medication. LABORATORY DATA: Reviewed. IMPRESSION: As per history, depression and anxiety and mood spectrum disorder. PLAN: The patient was provided with information about [facility]. The patient expressed her highest interest to speak to psychiatrist as outpatient. Seroquel was increased back to 25 mg at the nighttime with a plan to wean off as outpatient. The patient contracted for safety. The patient denied feeling anxious. Denied feeling of hopelessness or helplessness. At present moment, the patient pose no imminent danger to self or others. Should you have any questions, give me a call back. This tag writer will sign off. Thank you very much. Makenzie Vernon MD
[2018-07-04] MEDS: Albuterol-Ipratrop 3 mg / 0.5 (3 ml) UD IH SCH ×6 (04:21→23:39)
[2018-07-04] MEDS: Pantoprazole 40 mg EC Tab PO SCH (06:23)
[2018-07-04] MEDS: Insulin Detemir 100 units/ml Vial (Levemir) SC SCH ×2 (06:38→21:51)
[2018-07-04] MEDS: Insulin Lispro (HUMAlog) HIGH Coverage SC SCH ×4 (06:38→21:29)
[2018-07-04] MEDS: Arformoterol 15 mcg/2 ml Inh Sol IH SCH ×2 (07:17→20:04)
[2018-07-04] MEDS: Budesonide 0.5 mg/2 ml Inhal Susp UD IH SCH ×2 (07:18→20:04)
[2018-07-04] MEDS: Aspirin 325 mg EC Tablets PO SCH (07:51)
[2018-07-04] MEDS: Metoprolol Succinate 50 mg XL Tab PO SCH (08:00)
[2018-07-04] MEDS: levoFLOXacin 500 MG TAB PO SCH (09:11)
--- NOTE | 2018-07-04 10:48 | PN ---
SUBJECTIVE: The patient was seen and examined at bedside in the TCU. No acute events overnight. She remains afebrile and hemodynamically stable. OBJECTIVE: VITAL SIGNS: Temperature 97.7, pulse 76, blood pressure 100/65, respiratory rate 20, oxygen saturation 97% on room air. GENERAL: No apparent distress. HEENT: PERRL, EOMI. No scleral icterus. No conjunctival pallor. NECK: No JVD. LUNGS: Clear to auscultation. CARDIOVASCULAR: Regular rate and rhythm. Normal S1, S2. ABDOMEN: Normoactive bowel sounds, soft, nontender, nondistended. EXTREMITIES: No edema. NEUROLOGIC: Awake, alert and oriented x 3. No focal motor deficits. LABORATORY DATA: No new labs. ASSESSMENT: The patient is a 68-year-old woman with multiple medical comorbidities including severe COPD with active tobacco dependence who was initially admitted for management of community-acquired pneumonia and was subsequently transferred to the TCU for continued PT. PLAN: 1. Community-acquired pneumonia, resolving. Continue Levaquin 500 mg p.o. daily to complete 10 day course (today is day #9 of 10). 2. Severe COPD. Continue supplemental oxygen and bronchodilators. 3. Insulin-dependent diabetes mellitus. Continue with current insulin regimen, monitor fingersticks and adjust insulin as needed. 4. CAD s/p PCI with stent placement. Continue Aspirin 325 mg p.o. daily, Lipitor 40 mg p.o. daily and Toprol XL 50 mg p.o. daily. 5. Hypertension. Continue Toprol XL 50 mg p.o. daily and Norvasc 5 mg p.o. daily. 6. Hyperlipidemia. Continue Lipitor 40 mg p.o. daily. 7. Anxiety disorder. Continue Xanax 1 mg p.o. q. 6 hours p.r.n. anxiety. 8. Sciatica. Continue Gabapentin 300 mg p.o. t.i.d. and start Flexeril 5 mg p.o. t.i.d. 9. Prophylaxis. Continue Protonix for GI prophylaxis. DVT prophylaxis not indicated as the patient is ambulatory. CODE STATUS: Full code. Tj Arenas MD [facility]
--- NOTE | 2018-07-04 13:44 | CP.PCM.CON ---
History of Present Illness - History of Present Illness History of Present Illness: Podiatry consult note fro Drs. Matthew/Lexie 68 y/o female patient seen and evaluated with Dr. Matthew for elongated toenails and cramping to bilateral lower extremity. Patient states she is diabetic and prefers not to trim her own toenails. Patient states the cramping is intermittent, worse with ambulation. Patient denies any other complaints of fever, nausea, vomiting, shortness of breath, or chest pain PMHx: CAD,S/P PCI,HTN,HLD,IDDM,anxiety,sciatica Review of Systems - Review of Systems All systems: reviewed and no additional remarkable complaints except Review of Systems: As per HPI Past Patient History - Infectious Disease Hx of Infectious Diseases: None - Tetanus Immunizations Tetanus Immunization: Unknown - Past Social History Smoking Status: Current Some Days Smoker - CARDIAC Hx Cardiac Disorders: Yes Hx Hypercholesterolemia: Yes Hx Hypertension: Yes - PULMONARY Hx Chronic Obstructive Pulmonary Disease (COPD): Yes - NEUROLOGICAL Hx Paralysis: No - HEENT Hx HEENT Problems: No - RENAL Hx Chronic Kidney Disease: No - ENDOCRINE/METABOLIC Hx Diabetes Mellitus Type 1: Yes (IDDM) - HEMATOLOGICAL/ONCOLOGICAL Hx Blood Transfusions: No - INTEGUMENTARY Hx Dermatological Problems: Yes Hx Psoriasis: Yes - MUSCULOSKELETAL/RHEUMATOLOGICAL Hx Falls: No - GASTROINTESTINAL Hx Gastrointestinal Disorders: Yes Hx Gastroesophageal Reflux: Yes - GENITOURINARY/GYNECOLOGICAL Hx Reproductive Disorders: No - PSYCHIATRIC Hx Panic Symptoms: Yes Hx Substance Use: No - SURGICAL HISTORY Hx Cardiac Catheterization: Yes (2008) Hx Coronary Stent: Yes (X2) Other/Comment: trigger finger and ulna sx - ANESTHESIA Hx Anesthesia Reactions: No Hx Malignant Hyperthermia: No Meds Allergies/Adverse Reactions: Allergies Allergy/AdvReac Type Severity Reaction Status Date / Time bacitracin Allergy SWELLING Verified 07/02/18 20:41 latex Allergy RASH Verified 07/02/18 20:41 Penicillins Allergy ANAPHYLAXIS Verified 07/02/18 20:41 - Medications Medications: Current Medications Acetaminophen (Tylenol 325mg Tab) 650 mg PO Q6H PRN; Protocol PRN Reason: Pain, Mild (1-3) Last Admin: 07/03/18 14:44 Dose: 650 mg Al Hydrox/Mg Hydrox/Simethicone (Maalox Plus 30 Ml) 30 ml PO QID PRN; Protocol PRN Reason: Indigestion / Heartburn Last Admin: 06/30/18 05:52 Dose: 30 ml Albuterol/Ipratropium (Duoneb 3 Mg/0.5 Mg (3 Ml) Ud) 3 ml IH [id number] GELA; Protocol Last Admin: 07/04/18 11:11 Dose: 3 ml Albuterol/Ipratropium (Duoneb 3 Mg/0.5 Mg (3 Ml) Ud) 3 ml IH Q2H PRN; Protocol PRN Reason: Shortness of Breath Alprazolam (Xanax) 1 mg PO QID PRN; Protocol PRN Reason: Anxiety Last Admin: 07/04/18 13:30 Dose: 1 mg Amlodipine Besylate (Norvasc) 5 mg PO DAILY GELA; Protocol Last Admin: 07/04/18 09:12 Dose: Not Given Arformoterol Tartrate (Brovana) 15 mcg IH [id number] GELA; Protocol Last Admin: 07/04/18 07:17 Dose: 15 mcg Aspirin (Ecotrin) 325 mg PO 0800 GELA; Protocol Last Admin: 07/04/18 07:51 Dose: 325 mg Atorvastatin Calcium (Lipitor) 40 mg PO DIN GELA; Protocol Last Admin: 07/03/18 17:29 Dose: 40 mg Budesonide (Pulmicort Respules) 0.5 mg IH [id number] GELA; Protocol Last Admin: 07/04/18 07:18 Dose: 0.5 mg Cyclobenzaprine HCl (Flexeril) 5 mg PO TID GELA Last Admin: 07/04/18 13:28 Dose: 5 mg Furosemide (Lasix) 20 mg PO DAILY GELA; Protocol Last Admin: 07/04/18 09:10 Dose: 20 mg Gabapentin (Neurontin) 300 mg PO TID GELA; Protocol Last Admin: 07/04/18 13:29 Dose: 300 mg Guaifenesin/Codeine Phosphate (Robitussin W/Codeine) 5 ml PO Q4H PRN; Protocol PRN Reason: Cough and congestion Last Admin: 07/03/18 08:15 Dose: 5 ml Insulin Detemir (Levemir) 15 unit SC ACB GELA; Protocol Last Admin: 07/04/18 06:38 Dose: Not Given Insulin Detemir (Levemir) 20 unit SC HS GELA; Protocol Last Admin: 07/03/18 21:15 Dose: 20 units Insulin Human Lispro (Humalog High) 0 units SC ACHS [facility]; Protocol Last Admin: 07/04/18 13:28 Dose: 3 units Levofloxacin (Levaquin) 500 mg PO DAILY [facility]; Protocol Last Admin: 07/04/18 09:11 Dose: 500 mg Metoprolol Succinate (Toprol Xl) 50 mg PO BRK [facility]; Protocol Last Admin: 07/04/18 08:00 Dose: Not Given Nicotine (Nicoderm Cq) 1 patch TD DAILY [facility]; Protocol Last Admin: 07/04/18 09:11 Dose: 1 patch Ondansetron HCl (Zofran Tab) 4 mg PO Q8H PRN; Protocol PRN Reason: Nausea/Vomiting Last Admin: 06/29/18 18:06 Dose: 4 mg Pantoprazole Sodium (Protonix Ec Tab) 40 mg PO 0600 [facility]; Protocol Last Admin: 07/04/18 06:23 Dose: Not Given Quetiapine Fumarate (Seroquel) 25 mg PO HS PRN; Protocol PRN Reason: insomnia/psychosis Last Admin: 07/03/18 21:14 Dose: 25 mg Throat Lozenges (Cepastat) 1 yann MT Q6H PRN; Protocol PRN Reason: Sore Throat Physical Exam - Constitutional Appears: Well, Non-toxic, No Acute Distress - Head Exam Head Exam: ATRAUMATIC, NORMOCEPHALIC - Extremities Exam Additional comments: Bilateral LE focused exam VASC: DP and PT weakly palpable on left, non-palpable on the right, cap refill <3 seconds to all digits; temp gradient warm to cool from proximal to distal, no edema noted NEURO: Protective sensation slightly diminished DERM: toenails elongated X 10, no open lesions, no IDM, no clinical signs of infection MSKL: no pain with any ranges of motion, Muscle power 5/5 of the left foot to all groups. - Neurological Exam Neurological exam: Alert, Oriented x3 - Psychiatric Exam Psychiatric exam: Normal Affect, Normal Mood Results - Vital Signs Recent Vital Signs: Last Vital Signs Temp 97.7 F 07/04/18 08:00 Pulse 76 07/04/18 08:00 Resp 20 07/04/18 08:00 BP 101/64 07/04/18 09:12 Pulse Ox 97 07/04/18 08:00 - Labs Labs: Laboratory Results - last 24 hr 07/03/18 07/03/18 07/04/18 16:21 21:11 05:23 POC Glucose (mg/dL) 251 H 220 H 94 Assessment & Plan - Assessment and Plan (Free Text) Assessment: 68 y/o female patient seen and evaluated for elongated toenails and cramping to b/L LE Plan: Patient seen and evaluated with Dr. Matthew Plan discussed with Dr. Matthew Chart, labs and vitals were reviewed Aseptic debridement of toenails X 10, patient tolerated well Ordered MYRA/PVR to assess blow flow bilaterally due to weak pulses Podiatry will follow up Thank you for the consult
[2018-07-04] MEDS: guaiFENesin-Codeine 100-10mg/5ml Syrup (5 ml) UD PO PRN ×2 (17:13→21:32)
[2018-07-04 17:44] VITALS: TEMP 98.2
[2018-07-05] MEDS: Albuterol-Ipratrop 3 mg / 0.5 (3 ml) UD IH SCH ×2 (03:58→07:15)
[2018-07-05] MEDS: Pantoprazole 40 mg EC Tab PO SCH (06:13)
[2018-07-05] MEDS: Insulin Lispro (HUMAlog) HIGH Coverage SC SCH (06:57)
[2018-07-05] MEDS: Insulin Detemir 100 units/ml Vial (Levemir) SC SCH (06:57)
[2018-07-05] MEDS: Arformoterol 15 mcg/2 ml Inh Sol IH SCH (07:15)
[2018-07-05] MEDS: Budesonide 0.5 mg/2 ml Inhal Susp UD IH SCH (07:15)
[2018-07-05] MEDS: Aspirin 325 mg EC Tablets PO SCH (09:00)
[2018-07-05] MEDS: Metoprolol Succinate 50 mg XL Tab PO SCH (09:00)
[2018-07-05] MEDS: levoFLOXacin 500 MG TAB PO SCH (09:06)
[2018-07-05] MEDS: guaiFENesin-Codeine 100-10mg/5ml Syrup (5 ml) UD PO PRN (09:47)
[2018-07-05 11:00] VITALS: BP 121/86; RESP 18; O2SAT 98
[2018-07-05 11:57] VITALS: PULSE 85
--- NOTE | 2018-07-05 12:03 | DS ---
HISTORY OF PRESENT ILLNESS: The patient is in room 315, bed 1. The patient was admitted for rehab after a stay in the acute care facility for urinary tract infection and cellulitis. PAST MEDICAL HISTORY: Diabetes, hypertension, COPD and cellulitis. FAMILY HISTORY: Unremarkable. ALLERGIES: BACITRACIN, LATEX AND PENICILLINS. PHYSICAL EXAMINATION VITAL SIGNS: Temperature of 98.2, pulse rate of 102, blood pressure 138/94, O2 saturation 99% on room air. HEENT: PERRLA, EOMI. No icterus. NECK: Supple. There is a full range of motion. No bruits are appreciated. LUNGS: Clear to auscultation and percussion bilaterally with diminished breath sounds throughout. HEART: Regular rate and rhythm. No murmurs. ABDOMEN: Soft and nontender. Bowel sounds are normoactive. EXTREMITIES: Show no deformities or edema. NEUROLOGIC: There are no focal motor deficits. IMPRESSION 1. Deconditioning. 2. Diabetes. 3. Hypertension. 4. Status post cellulitis. The patient will be discharged on all previous medications and followed up in the office next week. Edward Arenas MD
== END 2018-07-05 11:05 | disposition home or self-care (01) | DRG 194 ==
LOC: TRCU 14:44
PROVIDERS: ADMIT Student in an Organized Health Care Education/Training Program; ATTEND Student in an Organized Health Care Education/Training Program
PROC: F07 Physical Rehabilitation and Diagnostic Audiology, Rehabilitation, Motor Treatment (ICD-10-PCS; 2018-06-30)
PROC: F07Z9ZZ Gait Training/Functional Ambulation Treatment (ICD-10-PCS; principal; 2018-07-01)
PROC: F07Z8ZZ Transfer Training Treatment (ICD-10-PCS; 2018-07-01)
PROC: F08Z1ZZ Dressing Techniques Treatment (ICD-10-PCS; 2018-07-02)
PROC: F08Z2ZZ Grooming/Personal Hygiene Treatment (ICD-10-PCS; 2018-07-04)
PROC: 0HBRXZZ Excision of Toe Nail, External Approach (ICD-10-PCS; 2018-07-04)
PROC: 0HBRXZZ Excision of Toe Nail, External Approach (ICD-10-PCS; 2018-07-04)
PROC: 0HBRXZZ Excision of Toe Nail, External Approach (ICD-10-PCS; 2018-07-04)
PROC: 0HBRXZZ Excision of Toe Nail, External Approach (ICD-10-PCS; 2018-07-04)
PROC: 0HBRXZZ Excision of Toe Nail, External Approach (ICD-10-PCS; 2018-07-04)
PROC: 0HBRXZZ Excision of Toe Nail, External Approach (ICD-10-PCS; 2018-07-04)
PROC: 0HBRXZZ Excision of Toe Nail, External Approach (ICD-10-PCS; 2018-07-04)
PROC: 0HBRXZZ Excision of Toe Nail, External Approach (ICD-10-PCS; 2018-07-04)
PROC: 0HBRXZZ Excision of Toe Nail, External Approach (ICD-10-PCS; 2018-07-04)
PROC: 0HBRXZZ Excision of Toe Nail, External Approach (ICD-10-PCS; 2018-07-04)
DX: J18.9 Pneumonia, unspecified organism (principal); J44.0 Chronic obstructive pulmonary disease with (acute) lower respiratory infection; L03.90 Cellulitis, unspecified; N39.0 Urinary tract infection, site not specified; L60.8 Other nail disorders; R25.2 Cramp and spasm; I10 Essential (primary) hypertension; E78.5 Hyperlipidemia, unspecified; E11.9 Type 2 diabetes mellitus without complications; F17.200 Nicotine dependence, unspecified, uncomplicated; I25.10 Atherosclerotic heart disease of native coronary artery without angina pectoris; F41.9 Anxiety disorder, unspecified; G47.00 Insomnia, unspecified; F32.9 Major depressive disorder, single episode, unspecified; F39 Unspecified mood [affective] disorder; M54.30 Sciatica, unspecified side; Z95.5 Presence of coronary angioplasty implant and graft; Z79.4 Long term (current) use of insulin